=== PATIENT | male | born 1975 | race Caucasian/White ===

== ENCOUNTER → 2020-10-20 09:21 | Outpatient (BNVA) | payer BC, SELFPAY | PROVIDERS: PCP Nurse Practitioner Family; Visit Provider Internal Medicine Endocrinology, Diabetes & Metabolism | DX: E11.65 Type 2 diabetes mellitus with hyperglycemia (principal); E11.22 Type 2 diabetes mellitus with diabetic chronic kidney disease; E11.21 Type 2 diabetes mellitus with diabetic nephropathy; N18.30 Chronic kidney disease, stage 3 unspecified; E78.5 Hyperlipidemia, unspecified; E03.9 Hypothyroidism, unspecified; E66.9 Obesity, unspecified; E55.9 Vitamin D deficiency, unspecified; Z79.4 Long term (current) use of insulin | CPT/HCPCS: 82947 ==

== ENCOUNTER 2020-10-20 10:33 | Outpatient (REF) | payer BC, SELFPAY ==
[2020-10-20 14:25] LABS: Hemoglobin 15.2 g/dl (14.0-18.0); Mean Corpuscular Hemoglobin 29.5 pg (27.0-33.0); Mean Corpuscular Volume 89.1 fL (80-98); Mean Platelet Volume 9.9 fL (9.4-12.4); Platelet Count 192 X10*3/uL (160-400); Red Blood Count 5.16 X10*6/uL (4.60-5.80); Red Cell Distribution Width 13.5 % (11.0-16.0); White Blood Count 4.6 X10*3/uL (4.8-10.8)
[2020-10-20 14:31] LABS: Estimated Average Glucose 203 mg/dL; Hemoglobin A1c % 8.7 %
[2020-10-20 14:42] LABS: Alanine Aminotransferase 40 U/L (0-40); Albumin Level 4.2 g/dL (3.5-5.0); Alkaline Phosphatase 70 U/L (39-117); Anion Gap 12 (12-20); Aspartate Amino Transferase 27 U/L (5-37); Bilirubin Total 0.5 mg/dL (0.0-1.0); Blood Urea Nitrogen 22 mg/dL (9-16); Calcium 8.5 mg/dL (8.4-10.2); Carbon Dioxide 27 mmol/L (22-29); Chloride 103 mmol/L (96-108); Cholesterol 235 mg/dL; Estimated Glomerular Filt Rate 36; Glucose Fasting 204 mg/dL (60-99); HDL Cholesterol 42 mg/dL; LDL Cholesterol Calculated 161 mg/dl; Potassium 4.7 mmol/l (3.3-5.1); Sodium 137 mmol/L (135-145); Total Protein 6.9 g/dL (6.5-8.0); Triglycerides 161 mg/dL
[2020-10-20 15:03] LABS: Thyroid Stimulating Hormone 5.14 uIU/mL (0.32-4.0); Vitamin D 25-OH Total 24.7 ng/mL (>30)
[2020-10-20 15:11] LABS: Creatinine Urine 130.24 mg/dL
[2020-10-20 15:15] LABS: Vitamin B12 680 pg/mL (200-900)
[2020-10-24 14:47] LABS: LDL Cholesterol Direct 175 mg/dL (<100)
== END 2020-10-20 10:34 | disposition home or self-care (01) ==
LOC: HO.10HDL 10:33
PROVIDERS: PCP Nurse Practitioner Family; Visit Provider Internal Medicine Endocrinology, Diabetes & Metabolism
DX: E11.65 Type 2 diabetes mellitus with hyperglycemia (principal); E03.9 Hypothyroidism, unspecified
CPT/HCPCS: 36415; 80053; 80061; 82043; 82306; 82607; 83036; 83721; 84439; 84443; 85027

== ENCOUNTER → 2021-03-22 08:23 | Outpatient (BNVA) | payer OTHER, SELFPAY | PROVIDERS: PCP Nurse Practitioner Family; Visit Provider Internal Medicine Endocrinology, Diabetes & Metabolism | DX: E11.65 Type 2 diabetes mellitus with hyperglycemia (principal); E11.21 Type 2 diabetes mellitus with diabetic nephropathy; E11.22 Type 2 diabetes mellitus with diabetic chronic kidney disease; N18.30 Chronic kidney disease, stage 3 unspecified; Z79.4 Long term (current) use of insulin; E03.8 Other specified hypothyroidism; E06.3 Autoimmune thyroiditis; E04.2 Nontoxic multinodular goiter; E78.5 Hyperlipidemia, unspecified; E55.9 Vitamin D deficiency, unspecified; E66.9 Obesity, unspecified | CPT/HCPCS: 82947 ==

== ENCOUNTER 2021-03-22 08:56 | Outpatient (REF) | payer OTHER, SELFPAY ==
[2021-03-22 10:49] LABS: Alanine Aminotransferase 27 U/L (0-40); Albumin Level 4.4 g/dL (3.5-5.0); Alkaline Phosphatase 76 U/L (39-117); Anion Gap 12 (12-20); Aspartate Amino Transferase 20 U/L (5-37); Bilirubin Total 0.4 mg/dL (0.0-1.0); Blood Urea Nitrogen 23 mg/dL (9-16); Calcium 9.6 mg/dL (8.4-10.2); Carbon Dioxide 28 mmol/L (22-29); Chloride 104 mmol/L (96-108); Cholesterol 211 mg/dL; Estimated Glomerular Filt Rate 34; Glucose Fasting 233 mg/dL (60-99); HDL Cholesterol 39 mg/dL; LDL Cholesterol Calculated 113 mg/dl; Potassium 4.1 mmol/L (3.3-5.1); Sodium 140 mmol/L (135-145); Total Protein 6.9 g/dL (6.5-8.0); Triglycerides 296 mg/dL
[2021-03-22 11:12] LABS: Free T4 (Free Thyroxine) 0.93 ng/dL (0.71-1.85); Thyroid Stimulating Hormone 3.32 uIU/mL (0.32-4.0)
[2021-03-23 05:46] LABS: LDL Cholesterol Direct 129 mg/dL (<100)
== END 2021-03-22 08:57 | disposition home or self-care (01) ==
LOC: HO.10HDL 08:56
PROVIDERS: Visit Provider Internal Medicine Endocrinology, Diabetes & Metabolism
DX: E11.65 Type 2 diabetes mellitus with hyperglycemia (principal)
CPT/HCPCS: 36415; 80053; 80061; 83721; 84439; 84443

== ENCOUNTER 2021-08-15 11:55 | Outpatient (REF) | payer OTHER, SELFPAY ==
[2021-08-15 13:42] LABS: MANUAL DIFF FLAG NO
[2021-08-15 14:00] LABS: Basophils Percent Auto 0.4 % (0-2); Eosinophils Absolute Auto 0.1 X10*3/uL (0.0-0.4); Eosinophils Percent Auto 2.4 % (0-4); Hematocrit 50.2 % (42-52); Hemoglobin 16.5 g/dl (14.0-18.0); Imm Gran Abs Auto 0.01 X10*3/uL (0.00-0.03); Imm Gran Pct Auto 0.2 % (0.0-0.4); Lymphocytes Absolute Auto 1.3 X10*3/uL (1.2-4.9); Lymphocytes Percent Auto 28.1 % (20-40); Mean Corpuscular HGB Conc 32.9 g/dl (31.0-36.0); Mean Corpuscular Hemoglobin 29.3 pg (27.0-33.0); Mean Platelet Volume 10.4 fL (9.4-12.4); Monocytes Absolute Auto 0.4 X10*3/uL (0.1-1.2); Neutrophils Absolute Auto 2.7 X10*3/uL (2.0-8.3); Neutrophils Percent Auto 59.9 % (45-73); Platelet Count 191 X10*3/uL (160-400); Red Blood Count 5.64 X10*6/uL (4.60-5.80); Red Cell Distribution Width 13.3 % (11.0-16.0); White Blood Count 4.6 X10*3/uL (4.8-10.8)
[2021-08-15 14:05] LABS: Appearance Urine CLEAR; Color Urine YELLOW; Glucose Urine UA >=1000 MG/DL (NEG); Leukocyte Esterase Urine NEG (NEG); Nitrite Urine NEG (NEG); Urine Blood NEG (NEG); Urine Ketones NEG (NEG); Urine Protein TRACE MG/DL (NEG-TRACE)
[2021-08-15 14:21] LABS: Creatinine Urine 65.24 mg/dL; Microalbum/Creatinine Ratio Ur 73.5 ug/mg cr; Protein/Creatinine Ratio, Ur 0.25 (<0.2); Total Protein Urine Random 16 mg/dL (<12)
[2021-08-15 14:25] LABS: Alanine Aminotransferase 25 U/L (0-40); Albumin Level 4.4 g/dL (3.5-5.0); Alkaline Phosphatase 71 U/L (39-117); Anion Gap 14 (12-20); Aspartate Amino Transferase 18 U/L (5-37); Bilirubin Total 0.5 mg/dL (0.0-1.0); Blood Urea Nitrogen 21 mg/dL (9-16); Calcium 9.3 mg/dL (8.4-10.2); Carbon Dioxide 26 mmol/L (22-29); Chloride 105 mmol/L (96-108); Cholesterol 185 mg/dL; Estimated Glomerular Filt Rate 35; Glucose Fasting 261 mg/dL (60-99); HDL Cholesterol 48 mg/dL; LDL Cholesterol Calculated 106 mg/dl; Potassium 4.4 mmol/L (3.3-5.1); Sodium 141 mmol/L (135-145); Total Protein 7.1 g/dL (6.5-8.0); Triglycerides 156 mg/dL
[2021-08-15 14:33] LABS: Magnesium 2.2 mg/dL (1.6-2.6); Phosphorus 2.8 mg/dL (2.7-4.5); WBC Urine 0-2 /HPF (0-4)
[2021-08-15 14:34] LABS: RBC Urine 0-2 /HPF (0)
[2021-08-15 14:43] LABS: Renal w Reflex-LAB USE ONLY Order Verified; Vitamin D 25-OH Total 30.8 ng/mL (>30)
[2021-08-15 14:48] LABS: Renal w Reflex Lab Use Only Order verified
[2021-08-16 16:16] LABS: Calcium (PTHI) 9.6 mg/dL (8.6-10.3); PTHI 222 pg/mL (14-64)
== END 2021-08-15 11:56 | disposition home or self-care (01) ==
LOC: HO.HMGCLDS 11:55
PROVIDERS: Internal Medicine Endocrinology, Diabetes & Metabolism; PCP Nurse Practitioner Family; Visit Provider Internal Medicine Nephrology
DX: E11.65 Type 2 diabetes mellitus with hyperglycemia (principal); E11.21 Type 2 diabetes mellitus with diabetic nephropathy; N18.30 Chronic kidney disease, stage 3 unspecified; D64.9 Anemia, unspecified
CPT/HCPCS: 36415; 80053; 80061; 81001; 82043; 82306; 83735; 83970; 84100; 84156; 85025

== ENCOUNTER 2021-11-24 13:54 | Outpatient (REF) | payer OTHER, SELFPAY ==
--- NOTE | ~2021-11-24 | XR_ITS ---
EXAMINATION: SACRUM AND COCCYX. LUMBAR SPINE. CLINICAL INFORMATION: Unspecified fall. COMPARISON: None TECHNIQUE: Lumbar spine 3 views. Sacrum and coccyx 2 views. FINDINGS: SACRUM AND COCCYX: There is normal symmetry of SI joints. No visible fracture or bony abnormality involving the pelvic bones. The sacrum and the coccyx appears intact. The soft tissues are normal. LUMBAR SPINE: There is normal lumbar lordosis doses. The vertebral heights, alignment and disc heights are normal. No visible acute fracture, dislocation or lytic process seen. There is moderate stool seen throughout the colon suggestive of constipation. XR/XR lumbar spine 2-3V IMPRESSION: Unremarkable sacrum and coccyx. Unremarkable lumbar spine exam.
--- NOTE | ~2021-11-24 | XR_ITS ---
EXAMINATION: SACRUM AND COCCYX. LUMBAR SPINE. CLINICAL INFORMATION: Unspecified fall. COMPARISON: None TECHNIQUE: Lumbar spine 3 views. Sacrum and coccyx 2 views. FINDINGS: SACRUM AND COCCYX: There is normal symmetry of SI joints. No visible fracture or bony abnormality involving the pelvic bones. The sacrum and the coccyx appears intact. The soft tissues are normal. LUMBAR SPINE: There is normal lumbar lordosis doses. The vertebral heights, alignment and disc heights are normal. No visible acute fracture, dislocation or lytic process seen. There is moderate stool seen throughout the colon suggestive of constipation. XR/XR sacrum coccyx min 2V IMPRESSION: Unremarkable sacrum and coccyx. Unremarkable lumbar spine exam.
== END 2021-11-24 13:55 | disposition home or self-care (01) ==
LOC: HO.HMGCX 13:54
PROVIDERS: PCP Nurse Practitioner Family; Visit Provider Nurse Practitioner Family
DX: Z91.81 History of falling (principal)
CPT/HCPCS: 72100; 72220

== ENCOUNTER 2021-12-16 12:20 | Outpatient (REF) | payer OTHER, SELFPAY ==
[2021-12-16 13:57] LABS: Appearance Urine CLEAR; Color Urine YELLOW; Glucose Urine UA >=1000 MG/DL (NEG); Leukocyte Esterase Urine NEG (NEG); Nitrite Urine NEG (NEG); UACC Culture Trigger NO; Urine Blood 1+ (NEG); Urine Ketones 15 MG/DL (NEG); Urine Protein 1+ MG/DL (NEG-TRACE)
[2021-12-16 14:00] LABS: Alanine Aminotransferase 31 U/L (0-40); Albumin Level 4.6 g/dL (3.5-5.0); Alkaline Phosphatase 85 U/L (39-117); Anion Gap 16 (12-20); Aspartate Amino Transferase 22 U/L (5-37); Bilirubin Total 0.5 mg/dL (0.0-1.0); Blood Urea Nitrogen 24 mg/dL (9-16); Calcium 9.7 mg/dL (8.4-10.2); Carbon Dioxide 26 mmol/L (22-29); Chloride 101 mmol/L (96-108); Cholesterol 255 mg/dL; Estimated Glomerular Filt Rate 34; Glucose Fasting 214 mg/dL (60-99); HDL Cholesterol 47 mg/dL; LDL Cholesterol Calculated 172 mg/dl; Potassium 4.4 mmol/L (3.3-5.1); Sodium 139 mmol/L (135-145); Total Protein 7.5 g/dL (6.5-8.0); Triglycerides 183 mg/dL
[2021-12-16 14:05] LABS: Estimated Average Glucose 217 mg/dL; Hemoglobin A1c % 9.2 %
[2021-12-16 14:20] LABS: TSH reflex Free T4 5.73 uIU/mL (0.32-4.0)
[2021-12-16 14:23] LABS: Creatinine Urine 103.69 mg/dL; Microalbum/Creatinine Ratio Ur 311.5 ug/mg cr
[2021-12-16 14:25] LABS: WBC Urine 0-2 /HPF (0-4)
[2021-12-16 14:55] LABS: Free T4 (Free Thyroxine) 1.04 ng/dL (0.71-1.85)
== END 2021-12-16 12:21 | disposition home or self-care (01) ==
LOC: HO.HMGCLDS 12:20
PROVIDERS: Visit Provider Nurse Practitioner Family
DX: Z00.00 Encounter for general adult medical examination without abnormal findings (principal); E11.21 Type 2 diabetes mellitus with diabetic nephropathy; E11.22 Type 2 diabetes mellitus with diabetic chronic kidney disease; N18.30 Chronic kidney disease, stage 3 unspecified
CPT/HCPCS: 36415; 80053; 80061; 81001; 82043; 83036; 84439; 84443

== ENCOUNTER → 2022-03-02 07:26 | Outpatient (BNVA) | payer OTHER, SELFPAY | PROVIDERS: PCP Nurse Practitioner Family; Visit Provider Nurse Practitioner Gerontology | DX: E11.65 Type 2 diabetes mellitus with hyperglycemia (principal); E11.21 Type 2 diabetes mellitus with diabetic nephropathy; E11.22 Type 2 diabetes mellitus with diabetic chronic kidney disease; N18.30 Chronic kidney disease, stage 3 unspecified; E03.8 Other specified hypothyroidism; E06.3 Autoimmune thyroiditis; E04.2 Nontoxic multinodular goiter; E78.5 Hyperlipidemia, unspecified; E55.9 Vitamin D deficiency, unspecified; E66.9 Obesity, unspecified; Z79.4 Long term (current) use of insulin; Z68.29 Body mass index [BMI] 29.0-29.9, adult | CPT/HCPCS: 82947 ==

== ENCOUNTER 2022-04-04 08:56 | Outpatient (REF) | payer OTHER, SELFPAY ==
[2022-04-04 12:33] LABS: Free T4 (Free Thyroxine) 0.97 ng/dL (0.71-1.85); Thyroid Stimulating Hormone 3.95 uIU/mL (0.32-4.0)
== END 2022-04-04 08:57 | disposition home or self-care (01) ==
LOC: HO.LAB 08:56
PROVIDERS: Nurse Practitioner Gerontology; PCP Nurse Practitioner Family; Visit Provider Registered Nurse Diabetes Educator
DX: E03.8 Other specified hypothyroidism (principal); E06.3 Autoimmune thyroiditis; E11.21 Type 2 diabetes mellitus with diabetic nephropathy
CPT/HCPCS: 36415; 84439; 84443

== ENCOUNTER 2022-07-04 11:26 | Outpatient (REF) | payer OTHER, SELFPAY ==
[2022-07-04 14:01] LABS: Appearance Urine Clear; Color Urine Yellow; Glucose Urine UA >=1000 mg/dL (Negative); Leukocyte Esterase Urine Negative (Negative); Nitrite Urine Negative (Negative); PH 5.5 (5.0-8.0); Specific Gravity - Urine 1.025 (1.005-1.025); Urine Blood Negative (Negative); Urine Ketones Negative (Negative); Urine Protein Trace mg/dL (Neg-Trace)
[2022-07-04 14:08] LABS: Estimated Average Glucose 194 mg/dL; Hemoglobin A1c % 8.4 %
[2022-07-04 14:18] LABS: Alanine Aminotransferase 24 U/L (0-40); Albumin Level 4.4 g/dL (3.5-5.0); Alkaline Phosphatase 93 U/L (39-117); Anion Gap 16 (12-20); Aspartate Amino Transferase 20 U/L (5-37); Bilirubin Total 0.4 mg/dL (0.0-1.0); Blood Urea Nitrogen 22 mg/dL (9-16); Carbon Dioxide 24 mmol/L (22-29); Chloride 105 mmol/L (96-108); Cholesterol 258 mg/dL; Estimated Glomerular Filt Rate 32; Glucose Fasting 242 mg/dL (60-99); HDL Cholesterol 47 mg/dL; LDL Cholesterol Calculated 181 mg/dl; Potassium 4.3 mmol/L (3.3-5.1); Sodium 141 mmol/L (135-145); Total Protein 7.1 g/dL (6.5-8.0); Triglycerides 150 mg/dL
[2022-07-04 14:40] LABS: TSH reflex Free T4 12.91 uIU/mL (0.32-4.0)
[2022-07-04 14:46] LABS: Bacteria Urine None Seen (None Seen); Hyaline Casts Urine 0-2 /LPF (0-2); RBC Urine 0-2 /HPF (0-2); Squamous Epithelial Cell Urine 0-2 /HPF (0-2); WBC Urine 0-5 /HPF (0-5)
[2022-07-04 15:25] LABS: Free T4 (Free Thyroxine) 0.84 ng/dL (0.71-1.85)
[2022-07-04 16:29] LABS: Creatinine Urine 70.63 mg/dL; Microalbum/Creatinine Ratio Ur 70.7 ug/mg cr
== END 2022-07-04 11:27 | disposition home or self-care (01) ==
LOC: HO.HMGCLDS 11:26
PROVIDERS: PCP Nurse Practitioner Family; Visit Provider Nurse Practitioner Family
DX: E11.65 Type 2 diabetes mellitus with hyperglycemia (principal); E11.22 Type 2 diabetes mellitus with diabetic chronic kidney disease; N18.30 Chronic kidney disease, stage 3 unspecified
CPT/HCPCS: 36415; 80053; 80061; 81001; 81003; 82043; 83036; 84439; 84443

== ENCOUNTER → 2022-08-31 07:01 | Outpatient (REF) | payer OTHER, SELFPAY ==
--- NOTE | 2022-08-31 07:04 | HM_ITS ---
* Total monitoring time 3 days and 23 hours. * Underlying rhythm is sinus. Average rate 84/Min. Range 58 to 130/Min. * Rare supraventricular and ventricular ectopy. No sustained arrhythmias. * No pauses or AV blocks. * Diary entries correlate with sinus rhythm. MTDD
== END ==
LOC: HO.CARD 07:01
PROVIDERS: PCP Nurse Practitioner Family; Visit Provider Nurse Practitioner Family
DX: R00.2 Palpitations (principal)
CPT/HCPCS: 93242

== ENCOUNTER 2022-09-05 09:14 | Outpatient (REF) | payer OTHER, SELFPAY ==
[2022-09-05 09:31] LABS: MANUAL DIFF FLAG NO
[2022-09-05 09:55] LABS: Basophils Percent Auto 0.6 % (0-2); Eosinophils Absolute Auto 0.1 X10*3/uL (0.0-0.4); Eosinophils Percent Auto 2.8 % (0-4); Hematocrit 43.7 % (42.0-52.0); Hemoglobin 14.6 g/dl (14.0-18.0); Imm Gran Abs Auto 0.01 X10*3/uL (0.00-0.03); Imm Gran Pct Auto 0.2 % (0.0-0.4); Lymphocytes Absolute Auto 1.3 X10*3/uL (1.2-4.9); Lymphocytes Percent Auto 26.7 % (20-40); Mean Corpuscular HGB Conc 33.4 g/dl (31.0-36.0); Mean Corpuscular Hemoglobin 29.6 pg (27.0-33.0); Mean Corpuscular Volume 88.5 fL (80.0-98.0); Mean Platelet Volume 10.1 fL (9.4-12.4); Monocytes Absolute Auto 0.4 X10*3/uL (0.1-1.2); Neutrophils Absolute Auto 2.8 x10*3/uL (2.0-8.3); Neutrophils Percent Auto 60.7 % (45-73); Platelet Count 187 X10*3/uL (160-400); Red Blood Count 4.94 X10*6/uL (4.60-5.80); Red Cell Distribution Width 13.5 % (11.0-16.0); White Blood Count 4.7 X10*3/uL (4.8-10.8)
[2022-09-05 10:26] LABS: Albumin Level 4.5 g/dL (3.5-5.0); Anion Gap 15 (12-20); Blood Urea Nitrogen 33 mg/dL (9-16); Calcium 9.4 mg/dL (8.4-10.2); Carbon Dioxide 25 mmol/L (22-29); Chloride 107 mmol/L (96-108); Estimated Glomerular Filt Rate 29; Magnesium 1.8 mg/dL (1.6-2.6); Phosphorus 2.9 mg/dL (2.7-4.5); Potassium 4.1 mmol/L (3.3-5.1); Sodium 143 mmol/L (135-145)
[2022-09-05 10:44] LABS: TSH reflex Free T4 1.36 uIU/mL (0.32-4.0)
[2022-09-05 10:50] LABS: Vitamin D 25-OH Total 23.6 ng/mL (>30)
[2022-09-05 10:52] LABS: Appearance Urine Clear; Color Urine Yellow; Glucose Urine UA 500 mg/dL (Negative); Leukocyte Esterase Urine Negative (Negative); Nitrite Urine Negative (Negative); PH 5.5 (5.0-9.0); Urine Blood Negative (Negative); Urine Ketones Negative (Negative); Urine Protein Negative (Neg-Trace)
[2022-09-05 10:59] LABS: Bacteria Urine None Seen (None Seen); Hyaline Casts Urine 0-2 /LPF (0-2); RBC Urine 0-2 /HPF (0-2); Squamous Epithelial Cell Urine 0-2 /HPF (0-2); WBC Urine 0-5 /HPF (0-5)
[2022-09-05 11:51] LABS: Creatinine Urine 75.66 mg/dL; Protein/Creatinine Ratio, Ur 0.19 (<0.2); Total Protein Urine Random 14 mg/dL (<12)
[2022-09-07 14:57] LABS: PTHI 244 pg/mL (16-77)
== END 2022-09-05 09:15 | disposition home or self-care (01) ==
LOC: HO.LAB 09:14
PROVIDERS: Absent Provider Internal Medicine Nephrology; PCP Nurse Practitioner Family; Visit Provider Nurse Practitioner Family
DX: N18.32 Chronic kidney disease, stage 3b (principal); E03.9 Hypothyroidism, unspecified; E11.21 Type 2 diabetes mellitus with diabetic nephropathy; N25.0 Renal osteodystrophy
CPT/HCPCS: 36415; 80051; 81001; 82040; 82043; 82306; 82310; 82565; 83735; 83970; 84100; 84156; 84443; 84520; 85025; 87086

== ENCOUNTER 2022-09-15 10:11 | Outpatient (REF) | payer OTHER, SELFPAY ==
[2022-09-15 11:25] LABS: MANUAL DIFF FLAG NO
[2022-09-15 11:32] LABS: Basophils Percent Auto 0.9 % (0-2); Eosinophils Absolute Auto 0.1 X10*3/uL (0.0-0.4); Eosinophils Percent Auto 2.6 % (0-4); Hematocrit 42.5 % (42.0-52.0); Hemoglobin 14.1 g/dl (14.0-18.0); Imm Gran Abs Auto 0.01 X10*3/uL (0.00-0.03); Imm Gran Pct Auto 0.2 % (0.0-0.4); Lymphocytes Absolute Auto 1.4 X10*3/uL (1.2-4.9); Lymphocytes Percent Auto 30.1 % (20-40); Mean Corpuscular HGB Conc 33.2 g/dl (31.0-36.0); Mean Corpuscular Volume 90.4 fL (80.0-98.0); Mean Platelet Volume 10.4 fL (9.4-12.4); Monocytes Absolute Auto 0.5 X10*3/uL (0.1-1.2); Monocytes Percent Auto 9.7 % (2-11); Neutrophils Absolute Auto 2.6 x10*3/uL (2.0-8.3); Neutrophils Percent Auto 56.5 % (45-73); Platelet Count 178 X10*3/uL (160-400); Red Cell Distribution Width 13.7 % (11.0-16.0); White Blood Count 4.6 X10*3/uL (4.8-10.8)
[2022-09-15 11:38] LABS: Estimated Average Glucose 197 mg/dL; Hemoglobin A1c % 8.5 %
[2022-09-15 11:52] LABS: Appearance Urine Clear; Color Urine Yellow; Glucose Urine UA >=1000 mg/dL (Negative); Leukocyte Esterase Urine Negative (Negative); Nitrite Urine Negative (Negative); PH 5.5 (5.0-9.0); UMIC TRIGGER UACC YES; Urine Blood Negative (Negative); Urine Ketones Negative (Negative); Urine Protein Negative (Neg-Trace)
[2022-09-15 12:00] LABS: Alanine Aminotransferase 22 U/L (0-40); Albumin Level 4.3 g/dL (3.5-5.0); Alkaline Phosphatase 83 U/L (39-117); Anion Gap 16 (12-20); Aspartate Amino Transferase 20 U/L (5-37); Bilirubin Total 0.4 mg/dL (0.0-1.0); Blood Urea Nitrogen 30 mg/dL (9-16); Calcium 9.1 mg/dL (8.4-10.2); Carbon Dioxide 24 mmol/L (22-29); Chloride 106 mmol/L (96-108); Cholesterol 216 mg/dL; Estimated Glomerular Filt Rate 26; Glucose Fasting 176 mg/dL (60-99); HDL Cholesterol 40 mg/dL; LDL Cholesterol Calculated 135 mg/dl; Potassium 4.5 mmol/L (3.3-5.1); Sodium 141 mmol/L (135-145); Total Protein 6.8 g/dL (6.5-8.0); Triglycerides 208 mg/dL
[2022-09-15 12:07] LABS: TSH reflex Free T4 5.08 uIU/mL (0.32-4.0)
[2022-09-15 12:17] LABS: Bacteria Urine None Seen (None Seen); Hyaline Casts Urine 0-2 /LPF (0-2); RBC Urine 0-2 /HPF (0-2); Squamous Epithelial Cell Urine 0-2 /HPF (0-2); WBC Urine 0-5 /HPF (0-5)
[2022-09-15 12:43] LABS: Free T4 (Free Thyroxine) 0.86 ng/dL (0.71-1.85)
[2022-09-20 12:45] LABS: CK-BB None Detected (None Detected); CK-MB 0 % (<5); CK-MM 100 % (95-100); Creatine Kinase,Total,Serum 147 U/L (44-196)
== END 2022-09-15 10:12 | disposition home or self-care (01) ==
LOC: HO.HMGCLDS 10:11
PROVIDERS: PCP Nurse Practitioner Family; Visit Provider Nurse Practitioner Family
DX: E11.319 Type 2 diabetes mellitus with unspecified diabetic retinopathy without macular edema (principal); E11.65 Type 2 diabetes mellitus with hyperglycemia
CPT/HCPCS: 36415; 80053; 80061; 81001; 82552; 83036; 84439; 84443; 85025

== ENCOUNTER 2022-11-08 11:15 | Outpatient (REF) | payer OTHER, SELFPAY ==
[2022-11-08 13:56] LABS: Appearance Urine Clear; Color Urine Yellow; Glucose Urine UA >=1000 mg/dL (Negative); Leukocyte Esterase Urine Negative (Negative); Nitrite Urine Negative (Negative); PH 5.5 (5.0-9.0); UMIC TRIGGER UACC YES; Urine Blood Negative (Negative); Urine Ketones Trace mg/dL (Negative); Urine Protein Negative (Neg-Trace)
[2022-11-08 13:57] LABS: MANUAL DIFF FLAG NO
[2022-11-08 14:02] LABS: Bacteria Urine None Seen (None Seen); Basophils Percent Auto 0.4 % (0-2); Eosinophils Absolute Auto 0.2 X10*3/uL (0.0-0.4); Eosinophils Percent Auto 3.4 % (0-4); Hematocrit 43.8 % (42.0-52.0); Hemoglobin 14.3 g/dl (14.0-18.0); Hyaline Casts Urine 0-2 /LPF (0-2); Imm Gran Abs Auto 0.01 X10*3/uL (0.00-0.03); Imm Gran Pct Auto 0.2 % (0.0-0.4); Lymphocytes Absolute Auto 1.3 X10*3/uL (1.2-4.9); Lymphocytes Percent Auto 24.4 % (20-40); Mean Corpuscular HGB Conc 32.6 g/dl (31.0-36.0); Mean Corpuscular Hemoglobin 29.9 pg (27.0-33.0); Mean Corpuscular Volume 91.4 fL (80.0-98.0); Monocytes Absolute Auto 0.5 X10*3/uL (0.1-1.2); Monocytes Percent Auto 9.3 % (2-11); Neutrophils Absolute Auto 3.3 x10*3/uL (2.0-8.3); Neutrophils Percent Auto 62.3 % (45-73); Platelet Count 198 X10*3/uL (160-400); RBC Urine 0-2 /HPF (0-2); Red Blood Count 4.79 X10*6/uL (4.60-5.80); Red Cell Distribution Width 13.5 % (11.0-16.0); Squamous Epithelial Cell Urine 0-2 /HPF (0-2); WBC Urine 0-5 /HPF (0-5); White Blood Count 5.4 X10*3/uL (4.8-10.8)
[2022-11-08 14:28] LABS: Estimated Average Glucose 177 mg/dL; Hemoglobin A1c % 7.8 %
[2022-11-08 14:42] LABS: Alanine Aminotransferase 24 U/L (0-40); Albumin Level 4.2 g/dL (3.5-5.0); Alkaline Phosphatase 100 U/L (39-117); Anion Gap 13 (12-20); Aspartate Amino Transferase 17 U/L (5-37); Bilirubin Total 0.4 mg/dL (0.0-1.0); Blood Urea Nitrogen 28 mg/dL (9-16); Calcium 9.3 mg/dL (8.4-10.2); Carbon Dioxide 25 mmol/L (22-29); Chloride 107 mmol/L (96-108); Cholesterol 168 mg/dL; Estimated Glomerular Filt Rate 30; Glucose Fasting 224 mg/dL (60-99); HDL Cholesterol 34 mg/dL; LDL Cholesterol Calculated 97 mg/dl; Potassium 4.7 mmol/L (3.3-5.1); Sodium 140 mmol/L (135-145); Total Protein 6.6 g/dL (6.5-8.0); Triglycerides 188 mg/dL
== END 2022-11-08 11:16 | disposition home or self-care (01) ==
LOC: HO.HMGCLDS 11:15
PROVIDERS: PCP Nurse Practitioner Family; Visit Provider Nurse Practitioner Family
DX: Z00.00 Encounter for general adult medical examination without abnormal findings (principal); E11.21 Type 2 diabetes mellitus with diabetic nephropathy
CPT/HCPCS: 36415; 80053; 80061; 81001; 83036; 84443; 85025

== ENCOUNTER → 2022-11-23 07:56 | Outpatient (BNVA) | payer OTHER, SELFPAY | PROVIDERS: PCP Nurse Practitioner Family; Visit Provider Internal Medicine Endocrinology, Diabetes & Metabolism | DX: E11.65 Type 2 diabetes mellitus with hyperglycemia (principal) | CPT/HCPCS: 82947 ==

== ENCOUNTER → 2023-01-05 08:01 | Outpatient (REF) | payer OTHER, SELFPAY ==
--- NOTE | ~2023-01-05 | NM_ITS ---
Exercise Myocardial perfusion study Indication: Chest pain to evaluate for myocardial ischemia Technique: The patient was brought in for an exercise perfusion study on 01/05/2023. Patient performed exercise as per Alirio protocol and was injected 30 mCi of sestamibi was given intravenously one target HR was achieved. Images were obtained using the SPECT gamma camera interlaced with the gating device. Images were obtained in supine position. Resting perfusion study was performed on 01/10/2023. Patient was administered 30 mCi of sestamibi intravenously at rest. Images were then obtained in supine position. Images obtained with and without CT attenuation. Total DLP 98 mGy-cm. Images were processed with the software and compared side to side in short axis, horizontal long axis and vertical long axis views. Findings: The stress perfusion study showed both attenuated as well as non attenuated images show normal uptake of radiotracer in all segments of LV myocardium. The gated study shows normal LV systolic function with calculated LVEF of 71%. LV cavity is normal in size. The gated study shows normal systolic wall thickening and contraction of all segments. There is no transient ischemic dilation. Resting study shows non attenuated images show normal uptake of radiotracer in all segments of LV myocardium. Gating at rest reveals normal systolic wall motion with visually estimated ejection fraction at greater than 60%. The findings are consistent with normal myocardial perfusion. NM/NM cardiolite stress test Impression: 1. Normal myocardial perfusion 2. Gated LVEF is 71% 3. Transient ischemic dilatation not present Stress EKG is equivocal for ischemia
--- NOTE | 2023-01-05 08:04 | CA_ITS ---
Acquisition Time: 2023-01-05 08:50:50 Total Exercise Time: 00:06:53 Test Indications: CP Medications: SEE H Protocol: ERIKA Max HR: 153 BPM 87% of Pred: 175 BPM Max BP: 154/074 mmHG Max Work Load: 7.7 METS Ecercise stress test using Erika protocol Total of 6 minutes 21 sec. Pt tolerated well Mild SIOB and chest thightness 2/10 non limiting with M ax HR 87 % and METS 7.70. EKG with T inversion in lead 3 and aVF and isolated PVC's during exercise. Chest pressure 2/10 during exercise.with mild SOB. Normotensive response to exercise. Awaiting nuclear images. Tesxt reviewed with Dr. Pisano. Referred By: Broderick Power Overread By: Elaine Holliday NP
--- NOTE | 2023-01-05 08:04 | CA_ITS ---
Transthoracic Echocardiogram Patient (Last, First, Middle): Michele Taylor A Gender: Male Date of : 1975 Age: 47 Procedure Date: 01/05/2023 Procedure Type: Transthoracic Echocardiogram Location: OP Height: 167.64 cm Weight: 83.92 kg BSA: 1.93 m2 Heart Rate: 64 bpm BP: 120 / 68 mmHg [employer]: SB Referring MD: Broderick Power [facility] Symptoms: R00.2 - Palpitations Study Quality: Adequate ECG Rhythm: Sinus Conclusions: - Normal left ventricular cavity size. There is normal left ventricular wall thickness. The left ventricular systolic function is low normal. The visually estimated ejection fraction is between 50-55%. - E/E prime ratio is between 8 and 15 consistent with indeterminate filling pressures. - The basal inferior segment is akinetic. - Normal right ventricular cavity size. There is borderline right ventricular systolic function. - Redcued global longitudinal strain at -15%. Findings Left Ventricle Normal left ventricular cavity size. There is normal left ventricular wall thickness. The left ventricular systolic function is low normal. The visually estimated ejection fraction is between 50-55%. There is evidence of regional wall motion abnormalities. Abnormal diastolic function is noted. Spectral Doppler is indicative of a pseudonormal filling pattern. E/E prime ratio is between 8 and 15 consistent with indeterminate filling pressures. Wall Motion Rest Echo Findings The basal inferior segment is akinetic. Right Ventricle Normal right ventricular cavity size. There is borderline right ventricular systolic function. Atria The left atrium is normal in size. The right atrium is normal in size. Aortic Valve Normal aortic valve structure and function. There is no aortic valve stenosis. There is no aortic valve regurgitation. Mitral Valve Normal mitral valve structure and function. There is no mitral valve regurgitation. There is no mitral valve stenosis. Pulmonic Valve Normal pulmonic valve structure and function. There is trace pulmonic valve regurgitation. Tricuspid Valve Normal tricuspid valve structure and function. There is trace tricuspid valve regurgitation. Tricuspid regurgitation envelope is inadequate for calculation of right ventricular systolic pressure. Normal right atrial pressure. Great Vessels All visible segments of the aorta are normal in size. The visualized portions of the pulmonary artery and branches are normal. Venous The inferior vena cava is normal in size and collapses greater than 50% with inspiration. Pericardium/Pleural There is no evidence of pericardial effusion. Prior Study Comparison No prior study available for comparison. Measurements 2D Linear Measurements IVSd: 0.88 0.6-0.9/0.6-1.0 cm LVIDd: 3.94 3.9-5.3/4.2-5.9 cm LVIDd Index: 2.04 2.4-3.2/2.2-3.1 cm/m2 LVIDs: 2.94 2.0-3.6 cm LVPWd: 0.60 0.7-1.1 cm LA Diam: 3.10 2.7-3.8/3.0-4.0 cm LAIDs Index: 1.61 1.5-2.3 cm/m2 LV Mass: 101.98 67-162/88-224 g LV Mass Index: 52.84 43-95/49-115 g/m2 LVOT Diam: 2.00 3.0+(-)1.3 cm 2D Systolic Function EF 4C: 50.00 >55% EF 2C: 56.00 >55% EF BiP: 54.40 >55% Mitral Valve MV Pk E: 0.92 MV PK A: 0.75 MV Decel Time: 171.00 E/A: 1.20 E'Lateral: 8.59 E'Medial: 7.62 E/E' Med: 12.00 E/E' Lat: 10.70 PHT: 50.00 MVA PHT: 4.40 Decel [place]: 5.37 Aortic Valve AoV Pk Mansoor: 1.06 AoV Pk Grad: 4.00 NADIA: 2.40 LVOT LVOT Pk Mansoor: 0.82 LVOT Mn Mansoor: 0.56 LVOT VTI: 0.20 LVOT Pk Grad: 3.00 LVOT Mn Grad: 1.00 LVOT Diam: 2.00 LVOT Area: 3.14 Diastolic Function MV Pk E: 0.92 MV Pk A: 0.75 E/A: 1.20 E'Medial: 7.62 E/E' Med: 12.00 E' Laterial: 8.59 E/E' Lat: 10.70 Right Ventricle TAPSE (mm): 15.60 TVS' Mansoor: 8.38 Tricuspid Valve RA Press: 8.00 Great Vessels Aorta Sinus of Valsalva: 3.10 2.0-3.5 cm Ao Asc: 3.10 2.1-3.4 cm Ao Arch: 2.90 Pulmonary Veins Pulm Vein S/D 0.90 Pulmonary Valve PV Pk Mansoor: 0.92 Peak PV Grad: 3.00 Updated in Other Vendor System with Status of Final Manohar Pisano MD electronically signed on 01/06/2023 1:30:37 PM with status of Final
== END ==
LOC: HO.CARD 08:01
PROVIDERS: PCP Nurse Practitioner Family; Visit Provider Nurse Practitioner Family
DX: R07.9 Chest pain, unspecified (principal); R00.2 Palpitations
CPT/HCPCS: 78452; 93017; 93306; 93356; A9500

== ENCOUNTER 2023-01-18 10:41 | Outpatient (REF) | payer OTHER, SELFPAY ==
[2023-01-18 13:54] LABS: MANUAL DIFF FLAG NO
[2023-01-18 14:21] LABS: Basophils Percent Auto 0.6 % (0-2); Eosinophils Absolute Auto 0.1 X10*3/uL (0.0-0.4); Eosinophils Percent Auto 2.7 % (0-4); Hematocrit 45.9 % (42.0-52.0); Hemoglobin 14.9 g/dl (14.0-18.0); Imm Gran Abs Auto 0.01 X10*3/uL (0.00-0.03); Imm Gran Pct Auto 0.2 % (0.0-0.4); Lymphocytes Absolute Auto 1.4 X10*3/uL (1.2-4.9); Lymphocytes Percent Auto 26.9 % (20-40); Mean Corpuscular HGB Conc 32.5 g/dl (31.0-36.0); Mean Corpuscular Hemoglobin 30.3 pg (27.0-33.0); Mean Corpuscular Volume 93.3 fL (80.0-98.0); Monocytes Absolute Auto 0.5 X10*3/uL (0.1-1.2); Monocytes Percent Auto 9.7 % (2-11); Neutrophils Absolute Auto 3.1 x10*3/uL (2.0-8.3); Neutrophils Percent Auto 59.9 % (45-73); Platelet Count 188 X10*3/uL (160-400); Red Blood Count 4.92 X10*6/uL (4.60-5.80); Red Cell Distribution Width 13.4 % (11.0-16.0); White Blood Count 5.2 X10*3/uL (4.8-10.8)
[2023-01-18 14:40] LABS: D Dimer High Sensitivity < 150 NG/ML
[2023-01-18 14:42] LABS: Alanine Aminotransferase 24 U/L (0-40); Albumin Level 4.4 g/dL (3.5-5.0); Alkaline Phosphatase 79 U/L (39-117); Anion Gap 14 (12-20); Aspartate Amino Transferase 16 U/L (5-37); Bilirubin Total 0.4 mg/dL (0.0-1.0); Blood Urea Nitrogen 28 mg/dL (9-16); Calcium 9.3 mg/dL (8.4-10.2); Carbon Dioxide 26 mmol/L (22-29); Chloride 106 mmol/L (96-108); Estimated Glomerular Filt Rate 31; Glucose Random 231 mg/dL (60-115); Potassium 4.5 mmol/L (3.3-5.1); Sodium 141 mmol/L (135-145)
[2023-01-18 14:44] LABS: TSH reflex Free T4 7.23 uIU/mL (0.32-4.0)
== END 2023-01-18 10:42 | disposition home or self-care (01) ==
LOC: HO.HMGCLDS 10:41
PROVIDERS: PCP Nurse Practitioner Family; Visit Provider Nurse Practitioner Family
DX: R07.89 Other chest pain (principal); R06.02 Shortness of breath; R53.81 Other malaise; R53.83 Other fatigue; E55.9 Vitamin D deficiency, unspecified
CPT/HCPCS: 36415; 80053; 84439; 84443; 85025; 85379

== ENCOUNTER 2023-01-18 15:14 | Outpatient (REF) | payer OTHER, SELFPAY ==
--- NOTE | ~2023-01-18 | NM_ITS ---
PULMONARY PERFUSION ONLY STUDY: CLINICAL INDICATION: Chest pain. Chest pressure. Shortness of breath. Coughing. PROCEDURE: Following the intravenous administration of 4 millicuries technetium 99m MAA, images of the chest were obtained in multiple projections using a gamma scintiphotographic camera. The radiotracer was injected through right antecubital superficial vein, without complications. COMPARISON: Chest radiograph done on the same day. Chest radiograph: Bilateral clear lung main. PERFUSION IMAGES: No segmental perfusion defects or other perfusion abnormalities are noted. NM/NM pul perfusion IMPRESSION: Based on modified PIOPED 2 criteria, pulmonary thromboembolism is absent.
--- NOTE | ~2023-01-18 | XR_ITS ---
EXAMINATION: XR CHEST CLINICAL INFORMATION: Shortness of breath COMPARISON: None TECHNIQUE: 2 views of the chest were obtained. FINDINGS: No significant abnormality is noted involving the heart, lungs, mediastinum, bony thorax or soft tissues. XR/XR chest 2V IMPRESSION: Unremarkable chest examination.
== END 2023-01-18 15:15 | disposition home or self-care (01) ==
LOC: HO.CT 15:14
PROVIDERS: PCP Nurse Practitioner Family; Visit Provider Nurse Practitioner Family
DX: R07.89 Other chest pain (principal); R06.02 Shortness of breath
CPT/HCPCS: 71046; 78580; A9540

== ENCOUNTER 2023-01-19 08:19 | Outpatient (REF) | payer OTHER, SELFPAY ==
[2023-01-19 09:58] LABS: Hematocrit 45.5 % (42.0-52.0); Hemoglobin 14.9 g/dl (14.0-18.0); Mean Corpuscular HGB Conc 32.7 g/dl (31.0-36.0); Mean Corpuscular Hemoglobin 30.8 pg (27.0-33.0); Mean Corpuscular Volume 94.2 fL (80.0-98.0); Mean Platelet Volume 10.1 fL (9.4-12.4); Platelet Count 184 X10*3/uL (160-400); Red Blood Count 4.83 X10*6/uL (4.60-5.80); Red Cell Distribution Width 13.5 % (11.0-16.0); White Blood Count 5.3 X10*3/uL (4.8-10.8)
[2023-01-19 10:05] LABS: INTERNATIONAL NORM RATIO 0.8 (0.9-1.1); Prothrombin Time 9.3 SEC (10.0-13.1)
[2023-01-19 10:41] LABS: Anion Gap 15 (12-20); Blood Urea Nitrogen 26 mg/dL (9-16); Calcium 9.2 mg/dL (8.4-10.2); Carbon Dioxide 26 mmol/L (22-29); Chloride 106 mmol/L (96-108); Estimated Glomerular Filt Rate 31; Glucose Random 224 mg/dL (60-115); Potassium 4.8 mmol/L (3.3-5.1); Sodium 142 mmol/L (135-145)
[2023-01-19 11:02] LABS: Folate 11.4 ng/mL (> or = 4.0); Vitamin B12 428 pg/mL (200-900)
[2023-01-26 15:48] LABS: Vitamin D 25-OH, D2 <4 ng/mL; Vitamin D 25-OH, D3 33 ng/mL; Vitamin D 25-OH, Total 33 ng/mL (30-100)
== END 2023-01-19 08:20 | disposition home or self-care (01) ==
LOC: HO.LAB 08:19
PROVIDERS: Nurse Practitioner Family; PCP Nurse Practitioner Family; Referring Provider Nurse Practitioner Family; Visit Provider Internal Medicine Cardiovascular Disease
DX: R07.89 Other chest pain (principal); R53.81 Other malaise; R53.83 Other fatigue; E55.9 Vitamin D deficiency, unspecified; R00.2 Palpitations
CPT/HCPCS: 36415; 80048; 82306; 82607; 82746; 85027; 85610

== ENCOUNTER → 2023-02-01 10:37 | Outpatient (REF) | payer OTHER, SELFPAY ==
--- NOTE | 2023-02-01 10:40 | HM_ITS ---
* Total monitoring time 30 days. Wear time 22.8 days. * Underlying rhythm is sinus. Average ventricular rate 77/Min. Range 54 to 120/Min. * Rare PVCs, PACs. * One episode of wide complex rhythm, 7 beats at 105/Min; 17:54hrs. Could be idioventricular rhythm. * Several symptoms documented in diary including racing, chest pressure, tightness, pain, ' hard' heartbeats, shortness of breath, twinge in chest at different times. The generally correlate with sinus rhythm. MTDD
== END ==
LOC: HO.CARD 10:37
PROVIDERS: Visit Provider Internal Medicine Cardiovascular Disease
DX: R00.2 Palpitations (principal)
CPT/HCPCS: 93270

== ENCOUNTER → 2023-02-07 12:39 | Outpatient (REF) | payer OTHER, SELFPAY | LOC: HO.SL 12:39 | PROVIDERS: PCP Nurse Practitioner Family; Visit Provider Nurse Practitioner Family | DX: G47.33 Obstructive sleep apnea (adult) (pediatric) (principal); R06.83 Snoring; R40.0 Somnolence | CPT/HCPCS: 95806 ==

== ENCOUNTER → 2023-02-09 13:29 | Outpatient (BNVA) | payer OTHER, SELFPAY | PROVIDERS: PCP Nurse Practitioner Family; Visit Provider Nurse Practitioner Family | DX: Z13.89 Encounter for screening for other disorder (principal) ==

== ENCOUNTER → 2023-02-22 08:45 | Outpatient (BNVA) | payer OTHER, SELFPAY | PROVIDERS: PCP Nurse Practitioner Family; Visit Provider Internal Medicine Endocrinology, Diabetes & Metabolism | DX: E11.65 Type 2 diabetes mellitus with hyperglycemia (principal) | CPT/HCPCS: 82947; 83036 ==

== ENCOUNTER 2023-03-05 14:37 | Outpatient (REF) | payer OTHER, SELFPAY ==
[2023-03-05 16:28] LABS: Free T4 (Free Thyroxine) 1.16 ng/dL (0.71-1.85); Thyroid Stimulating Hormone 1.17 uIU/mL (0.32-4.0)
== END 2023-03-05 14:38 | disposition home or self-care (01) ==
LOC: HO.LAB 14:37
PROVIDERS: PCP Nurse Practitioner Family; Visit Provider Internal Medicine Endocrinology, Diabetes & Metabolism
DX: E03.9 Hypothyroidism, unspecified (principal)
CPT/HCPCS: 36415; 84439; 84443

== ENCOUNTER → 2023-03-14 11:18 | Outpatient (BNVA) | payer OTHER, SELFPAY | PROVIDERS: PCP Nurse Practitioner Family; Visit Provider Nurse Practitioner Family | DX: R53.81 Other malaise (principal); R53.83 Other fatigue; E55.9 Vitamin D deficiency, unspecified; R07.9 Chest pain, unspecified; Z72.820 Sleep deprivation; R00.2 Palpitations; E66.9 Obesity, unspecified; E11.22 Type 2 diabetes mellitus with diabetic chronic kidney disease; N18.30 Chronic kidney disease, stage 3 unspecified; E11.65 Type 2 diabetes mellitus with hyperglycemia ==

== ENCOUNTER → 2023-03-30 13:28 | Outpatient (BNVA) | payer OTHER, SELFPAY | PROVIDERS: PCP Nurse Practitioner Family; Visit Provider Nurse Practitioner Family | DX: R07.89 Other chest pain (principal) | CPT/HCPCS: 93005 ==

== ENCOUNTER → 2023-04-05 08:56 | Outpatient (BNVA) | payer OTHER, SELFPAY | PROVIDERS: PCP Nurse Practitioner Family; Visit Provider Internal Medicine ==

== ENCOUNTER 2023-05-19 10:21 | Outpatient (REF) | payer OTHER, SELFPAY ==
[2023-05-19 11:25] LABS: Albumin Level 4.2 g/dL (3.5-5.0); Anion Gap 15 (12-20); Blood Urea Nitrogen 29 mg/dL (9-16); Calcium 9.7 mg/dL (8.4-10.2); Carbon Dioxide 24 mmol/L (22-29); Chloride 105 mmol/L (96-108); Estimated Glomerular Filt Rate 28; Phosphorus 3.9 mg/dL (2.7-4.5); Potassium 4.7 mmol/L (3.3-5.1); Sodium 139 mmol/L (135-145)
[2023-05-19 11:41] LABS: Vitamin D 25-OH Total 26.5 ng/mL (>30)
== END 2023-05-19 10:22 | disposition home or self-care (01) ==
LOC: HO.LAB 10:21
PROVIDERS: PCP Nurse Practitioner Family; Visit Provider Internal Medicine Nephrology
DX: E11.22 Type 2 diabetes mellitus with diabetic chronic kidney disease (principal); E11.21 Type 2 diabetes mellitus with diabetic nephropathy; N18.32 Chronic kidney disease, stage 3b; N25.0 Renal osteodystrophy; R82.90 Unspecified abnormal findings in urine
CPT/HCPCS: 36415; 80051; 81001; 82040; 82043; 82306; 82310; 82565; 83970; 84100; 84156; 84520; 87086

== ENCOUNTER 2023-05-23 09:49 | Day surgery (SDC) | payer OTHER, SELFPAY ==
[2023-05-18 10:32] VITALS: BMI 31.8
--- NOTE | 2023-05-21 11:43 | HO.ANESPROP2 ---
Documented by User: Maria Antonia Brito NP 05/21/23 11:52 HPI - Anesthesia Eval Consult details Narrative: 48yo M for Colonoscopy Recent cardiac w/u for chest pressure without significant cardiac abnormalities. YISEL diagnosis new with CPAP [facility] Active Problems Active Problems: All Active Problems (Updated 04/24/23 @ 12:30 by Broderick Power [facility]) Pressure in chest (Acute) YISEL on CPAP (Acute) Allergic rhinitis (Acute) PVCs (premature ventricular contractions) (Acute) S/P cardiac catheterization (Acute) SOB (shortness of breath) on exertion (Acute) Chest discomfort (Acute) Snoring (Acute) Daytime sleepiness (Acute) Chest pain on exertion (Acute) Poor sleep (Acute) Palpitations (Acute) Lower back pain (Acute) Screening for colon cancer (Acute) Hypothyroid (Acute) Allergies (Acute) Diabetic retinopathy (Acute) Motion sickness (Acute) Microscopic hematuria (Acute) Fall (Acute) Physical exam (Acute) Bad taste in mouth (Acute) Acute sinusitis (Acute) Right otitis media (Acute) Malaise and fatigue (Acute) Obesity (BMI 30-39.9) (Acute) Vitamin D deficiency (Acute) Dyslipidemia (Acute) Non-toxic multinodular goiter (Acute) Hypothyroid (Acute) CKD stage 3 due to type 2 diabetes mellitus (Acute) Diabetic nephropathy associated with type 2 diabetes mellitus (Acute) [facility] (current) use of insulin (Acute) Diabetes type 2, uncontrolled (Acute) Past Medical History Medical History (Updated 04/24/23 @ 12:30 by Broderick Power [facility]) Allergic rhinitis CKD stage 3 due to type 2 diabetes mellitus COVID-19 virus infection Diabetes type 2, uncontrolled Diabetic nephropathy associated with type 2 diabetes mellitus Dyslipidemia Hypothyroid [facility] (current) use of insulin Malaise and fatigue Non-toxic multinodular goiter Obesity (BMI 30-39.9) YISEL on CPAP Vitamin D deficiency Family History Family History Father Diabetes mellitus Diverticulitis Colitis Overweight Kidney problem Mental health disorder Heart disease Mother Diabetes mellitus Thyroid disease History of kidney cancer Liver problem Obese Psoriasis Sleep apnea Brother No problems noted. Paternal Grandmother Mental health disorder Surgical History Surgical History Hx of coronary angiogram Lazy eye Sutured skin wound Social History Social History Housing: House Alcohol intake: current Alcohol intake frequency: holidays/special occasions only Patient Tobacco Use Status: Never used Tobacco e-Cigarette/Vaping Use: Never Used Second Hand Smoke Exposure: No (not very often ) Use of substances other than those prescribed or required for medical reasons: No Are you DNR?: No Advance Directives: No Advance Directives Information Provided: Yes service: No Current occupational status: employed Current occupation: [employer] Cognitive needs: No Hearing needs: No Vision needs: No Meds Allergies Allergy/AdvReac Type Severity Reaction Status Date / Time raking leaves Allergy Unknown gets itchy Verified 04/24/23 10:58 (mold?) Home Medications Medication Instructions Recorded Confirmed Last Taken Type calcitriol 0.25 mcg capsule 0.25 mcg PO Q OTHER DAY 10/19/20 05/18/23 Unknown History cholecalciferol (vitamin D3) 125 125 mcg PO DAILY 10/19/20 05/18/23 Unknown History mcg (5,000 unit) capsule flu vac [id number] 36mos up(PF) 60 ml IM 10/19/20 03/30/23 Unknown History mcg (15 mcg x4)/0.5 mL IM syringe cetirizine 10 mg tablet (Zyrtec) 10 mg PO DAILY PRN Allergy Symptoms 03/11/21 05/18/23 Unknown History dapagliflozin propanediol 10 mg 10 mg PO DAILY 11/23/22 05/18/23 Unknown History tablet (Farxiga) atorvastatin 40 mg tablet 20 mg PO DAILY 12/25/22 05/18/23 Unknown History Exam Exam Date and Time: May 21, 2023 1143 Height,Weight and Vital Signs: Height 5 ft 6 in Weight 89.358 kg Pertinent Lab Results Pertinent Lab Results: Laboratory Tests 01/19/23 05/19/23 09:31 10:34 WBC 5.3 Hgb 14.9 Hct 45.5 Plt Count 184 Sodium 139 Potassium 4.7 Chloride 105 Carbon Dioxide 24 BUN 29 H Creatinine 2.52 H Narrative Narrative: EKG 03/2023 normal sinus rhythm, no acute ST or T-wave abnormalities, rate 86 03/2023 cardiology office visit. F/U after testing for chest pressure/palps. pulmonary perfusion scan on 01/18/2023 which showed no PE.? He had an echocardiogram 01/05/2023 showing EF 50-55%, basal inferior akinetic followed by? Nuclear stress test done 01/05/2023 with mild chest tightness during exercise, borderline EKG change and normal myocardial perfusion imaging.? EKGs showed no acute ST or T-wave abnormalities, sinus rhythm.? On prior visit he was started on low-dose metoprolol and continued on atorvastatin 20 mg daily.? He then underwent a cardiac catheterization on 01/30/2023 showing only minimal irregularities. Assessment and Plan Assessment Anesthesia Assessment: Chart Reviewed Documented by User: Garcia Grossman MD 05/23/23 10:35 [facility] Past Medical History Medical History (Updated 04/24/23 @ 12:30 by Broderick Power, [facility]) Allergic rhinitis CKD stage 3 due to type 2 diabetes mellitus COVID-19 virus infection Diabetes type 2, uncontrolled Diabetic nephropathy associated with type 2 diabetes mellitus Dyslipidemia Hypothyroid [facility] (current) use of insulin Malaise and fatigue Non-toxic multinodular goiter Obesity (BMI 30-39.9) YISEL on CPAP Vitamin D deficiency Family History Family History Father Diabetes mellitus Diverticulitis Colitis Overweight Kidney problem Mental health disorder Heart disease Mother Diabetes mellitus Thyroid disease History of kidney cancer Liver problem Obese Psoriasis Sleep apnea Brother No problems noted. Paternal Grandmother Mental health disorder Family history of problems with anesthesia: No Surgical History Surgical History Hx of coronary angiogram Lazy eye Sutured skin wound History of Problems with Anesthesia: No Social History Social History Housing: House Alcohol intake: current Alcohol intake frequency: holidays/special occasions only Patient Tobacco Use Status: Never used Tobacco e-Cigarette/Vaping Use: Never Used Second Hand Smoke Exposure: No (not very often ) Use of substances other than those prescribed or required for medical reasons: No Are you DNR?: No Advance Directives: No Advance Directives Information Provided: Yes service: No Current occupational status: employed 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 Cognitive needs: No Hearing needs: No Vision needs: No Meds Allergies Allergy/AdvReac Type Severity Reaction Status Date / Time raking leaves Allergy Unknown gets itchy Verified 04/24/23 10:58 (mold?) Home Medications Medication Instructions Recorded Confirmed Last Taken Type calcitriol 0.25 mcg capsule 0.25 mcg PO Q OTHER DAY 10/19/20 05/18/23 Unknown History cholecalciferol (vitamin D3) 125 125 mcg PO DAILY 10/19/20 05/18/23 Unknown History mcg (5,000 unit) capsule flu vac [id number] 36mos up(PF) 60 ml IM 10/19/20 03/30/23 Unknown History mcg (15 mcg x4)/0.5 mL IM syringe cetirizine 10 mg tablet (Zyrtec) 10 mg PO DAILY PRN Allergy Symptoms 03/11/21 05/18/23 Unknown History dapagliflozin propanediol 10 mg 10 mg PO DAILY 11/23/22 05/18/23 Unknown History tablet (Farxiga) atorvastatin 40 mg tablet 20 mg PO DAILY 12/25/22 05/18/23 Unknown History Exam Airway Mallampati Class: II TM Dist: >3cm Neck ROM: Limited Heart: rrr Lungs: cta Assessment and Plan Assessment Anesthesia Assessment: Anesthesia Plan Discussed Final Anesthetic Review Family History of Problems with Anesthesia: No History of Problems with Anesthesia: No NPO: Yes ASA Class: III Final Preanesthetic Review: No Changes in Pt Med Stat, Meds/Allgs Chart Reviewed, Consent Obtained/Reviewed and Anes Risks/Benef Reviewed Patient Risk: Intermediate Procedure Risk: Low Anesthetic Plan Anesthetic Plan: MAC: and Agree w/ Assess. and Plan Disposition: Standard PACU
[2023-05-23 10:09] VITALS: BP 110/80; PULSE 98; RESP 16; TEMP 37.1; O2SAT 95
--- NOTE | 2023-05-23 11:00 | MHC.SHP ---
Pre-Procedural Eval Section A Date of Service: 05/23/23 Section B Chief Complaint: screening Details of Present Illness: dad with unknown types of colon problems Relevant Family History (Specify if Yes): Yes Relevant Social History: None Present Medications: see Short Stay Collaborative assessment Medical History: Significant History (Allergic rhinitis CKD stage 3 due to type 2 diabetes mellitus COVID-19 virus infection Diabetes type 2, uncontrolled Diabetic nephropathy associated with type 2 diabetes mellitus Dyslipidemia Hypothyroid [employer] (current) use of insulin Malaise and fatigue Non-toxic multinodular goiter Obesity (BM) History of Previous Operations: Relevant previous surgery/procedure and date(s) (Hx of coronary angiogram Lazy eye Sutured skin wound) Allergies: Allergies Allergy/AdvReac Type Severity Reaction Status Date / Time raking leaves Allergy Unknown gets itchy Verified 04/24/23 10:58 (mold?) Review of Systems Sugical H&P ROS: Negative: Constitution, Cardiovascular, Respiratory, Neurological, Psychiatric, Hem-Onc, Allergic/Immunologic, Gastrointestinal, Genitourinary, Musculoskeletal, Integumentary, Endocrine and Eyes/Ears/Nose/Throat Exam Surgical H&P Exam: Normal: HEENT, Normal: Heart, Normal: Lungs, Normal: Extremities, Normal: Abdomen, Normal: Skin and Normal: Neurological Plan Diagnosis/Plan: Unchanged I have reviewed the history and physical and performed a pertinent physical examination on my patient. No changes have occurred unless specified. Time Spent With Patient Time: Total time managing care of this patient today ____ minutes.
--- NOTE | 2023-05-23 11:02 | W.PM.OPN ---
Operative Note Operative Note Date of Service: 05/23/23 Narrative: Operative Information Procedure Description: Colonoscopy Indication: screening Anesthesia: MAC COLONOSCOPY Instrument: Olympus variable stiffness ADULT scope 190L Colonoscopy Monitoring: Vital signs and clinical assessment, continuous EKG monitoring, Pulse oximetry, Carbon Dioxide monitoring and blood pressure monitoring were done throughout the procedure. Colon withdrawal time was 10 minutes. Procedure: The patient was placed in the left lateral decubitis position and pre-procedure medications were administered. After a digital rectal examination of the ano-rectum, the video colonoscope was inserted into the rectum and advanced through the colon to the cecum/TI. The colonoscope was slowly withdrawn in a retrograde panoramic fashion and the colon mucosa was carefully examined including a retroflexed view of the rectum. Findings and interventions are described below. Procedure Difficulty: easy Findings: Terminal Ileum-normal Cecum:normal Ascending Colon: normal Transverse Colon -normal Descending Colon:normal Sigmoid Colon: normal Rectum: Retroflexion with small internal hemorrhoids, grade I Anorectum - normal Colon preparation: [place] Bowel Preparation Scale Right colon; 2 Transverse colon: 2 Left colon; 2 (0 = Unprepared colon segment with mucosa not seen due to solid stool that cannot be cleared. 1 = Portion of mucosa of the colon segment seen, but other areas of the colon segment not well seen due to staining, residual stool and/or opaque liquid. 2 = Minor amount of residual staining, small fragments of stool and/or opaque liquid, but mucosa of colon segment seen well. 3 = Entire mucosa of colon segment seen well with no residual staining, small fragments of stool or opaque liquid) Impression and Post Procedure Diagnosis: internal hemorrhoids Plan: High fiber diet leaflet Avoid straining at stool, epsom salts and sitz bath, anusol supps or cream Repeat Colonoscopy in 10 years or earlier if clinically indicated Above findings were reviewed with the patient and relevant handouts were provided if indicated.
[2023-05-23 11:27] VITALS: BP 92/49; PULSE 87; RESP 16; TEMP 36.4; O2SAT 97
[2023-05-23 11:42] VITALS: BP 110/69; PULSE 90; RESP 18; TEMP 36.4; O2SAT 96
[2023-05-23 11:57] VITALS: BP 130/88; PULSE 81; RESP 18; TEMP 36.4; O2SAT 97
== END 2023-05-23 12:24 | disposition home or self-care (01) ==
PROVIDERS: PCP Nurse Practitioner Family; Visit Provider Internal Medicine Gastroenterology
PROC: 0DJD8ZZ Inspection of Lower Intestinal Tract, Via Natural or Artificial Opening Endoscopic (ICD-10-PCS; CPT 45378; principal; 2023-05-23 11:30)
DX: Z12.11 Encounter for screening for malignant neoplasm of colon (principal); K64.0 First degree hemorrhoids; E11.22 Type 2 diabetes mellitus with diabetic chronic kidney disease; N18.30 Chronic kidney disease, stage 3 unspecified; Z79.4 Long term (current) use of insulin
CPT/HCPCS: 45378

== ENCOUNTER → 2023-05-24 09:18 | Outpatient (BNVA) | payer OTHER, SELFPAY | PROVIDERS: PCP Nurse Practitioner Family; Visit Provider Internal Medicine Endocrinology, Diabetes & Metabolism | DX: E11.65 Type 2 diabetes mellitus with hyperglycemia (principal); E11.22 Type 2 diabetes mellitus with diabetic chronic kidney disease; N18.32 Chronic kidney disease, stage 3b; E03.8 Other specified hypothyroidism; E06.3 Autoimmune thyroiditis; Z79.4 Long term (current) use of insulin; Z79.899 Other long term (current) drug therapy | CPT/HCPCS: 82947; 83036 ==

== ENCOUNTER 2023-06-04 09:24 | Outpatient (AMB) | payer OTHER, SELFPAY ==
--- NOTE | 2023-06-04 09:25 | A.OFFVIS_ITS ---
Intake Vital Signs 06/04/23 09:38 Height 5 ft 6 in Weight 199 lb BMI 32.1 BP 110/53 L Blood Pressure Location Lt brachial Position Sitting Pulse 78 Intake Visit Reasons: S/p colon- Gooden Intake Note: Patient follow up for Colonoscopy results. Patient denies any GI issues. 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 Required: No Accompanied by: Self / Same As Patient Allergies raking leaves Allergy (Unknown, Verified 06/04/23 09:34) gets itchy (mold?) Medication List - Last Reconciled 06/04/23 by Radha Dickinson PA-C albuterol sulfate 90 mcg/actuation 2 puffs inhalation ONCE PRN atorvastatin 20 mg PO DAILY calcitriol 0.25 mcg PO Q OTHER DAY cetirizine (Zyrtec) 10 mg PO DAILY PRN cholecalciferol (vitamin D3) 125 mcg PO DAILY citalopram 20 mg PO DAILY 90 days dapagliflozin propanediol (Farxiga) 10 mg PO DAILY flash glucose scanning reader (Advanced Ballistic ConceptsStyle Yaz 2 [place]) As directed flash glucose sensor (FreeStyle Yaz 2 Sensor kit) As directed every 2 weeks insulin glargine (Lantus Solostar U-100 Insulin) 16 units (0.16 mL) subcut BEDTIME insulin lispro-aabc (Lyumjev KwikPen U-100 Insulin) 16 units (0.16 mL) subcut TID insulin pump cart,auto,BT-cntr (Omnipod 5 G6 Intro Kit (Gen 5) subcutaneous cartridge with controller) As directed insulin pump cart,automated,BT (Omnipod 5 G6 Pods (Gen 5) subcutaneous cartridge) As directed levothyroxine 112 mcg PO QAM 90 days losartan 50 mg (2 x 25 mg) PO DAILY metoprolol succinate ER (Toprol XL) 25 mg PO DAILY 90 days pen needle, diabetic 6 times a day HPI HPI Comments History of Present Illness Details A 48 y/o male follows up after index screening colonoscopy- He did very well- no complaints- GI or general. 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 Paternal Grandmother Mental health disorder Social History Housing: House Alcohol intake: current Alcohol intake frequency: holidays/special occasions only Patient Tobacco Use Status: Never used Tobacco e-Cigarette/Vaping Use: Never Used Second Hand Smoke Exposure: No (not very often ) service: No Current occupational status: employed Current occupation: [employer] Cognitive needs: No Hearing needs: No Vision needs: No Review of Systems Const All systems reviewed & are unremarkable except as noted in HPI and below Physical Exam Vital Signs: Last Vital Signs Pulse 78 06/04/23 09:38 BP 110/53 L 06/04/23 09:38 BMI result Body Mass Index 32.1 Const General: cooperative, healthy appearing, comfortable and no acute distress Psych Appearance: grossly normal and well kempt Mental Status: mental status grossly normal Speech and movement: Normal speech and movement present Affect: normal affect Attitude: cooperative Thought process: Normal thought process present Thought content: Normal thought content present Insight: Good insight present (Psych) Judgement: Good judgement present (Psych) Results Reviewed Results Reviewed: Impression and Post Procedure Diagnosis: internal hemorrhoids Plan: High fiber diet leaflet Avoid straining at stool, epsom salts and sitz bath, anusol supps or cream Repeat Colonoscopy in 10 years or earlier if clinically indicated Assessment & Plan Assessment & Plan (1) Internal hemorrhoids: Code(s): K64.8 - Other hemorrhoids Plan: HFD Avoid straining repeat 10 years sooner if indicated. Coding Level of Care Code Est Pt Level 3 (28200) Diagnoses Internal hemorrhoids K64.8 Time Spent (min) 20
[2023-06-04 09:38] VITALS: BP 110/53; PULSE 78; BMI 32.1
== END 2023-06-04 11:03 | disposition home or self-care (01) ==
PROVIDERS: PCP Nurse Practitioner Family; Visit Provider Physician Assistant
DX: K64.8 Other hemorrhoids (principal)
CPT/HCPCS: 99213

== ENCOUNTER → 2023-06-04 09:24 | Outpatient (BNVA) | payer OTHER, SELFPAY | PROVIDERS: PCP Nurse Practitioner Family; Visit Provider Physician Assistant ==

== ENCOUNTER 2023-06-11 09:19 | Outpatient (REF) | payer OTHER, SELFPAY ==
--- NOTE | 2023-06-11 10:22 | PFT_ITS ---
Forced vital capacity 75%, FEV1 83%, FEV1 over FVC ratio was 87. FEF 25/75 106% and MVV 81%. Post bronchodilator therapy, there is no change. Total lung capacity 81%. Residual volume 87%. Diffusion capacity 80%. CONCLUSION: Normal pulmonary function test. There is no evidence of any obstructive or restrictive pulmonary disorder. Also, no response to bronchodilator therapy. MD MIRNA Evans/VALENTINAL / [phone]
== END 2023-06-11 09:20 | disposition home or self-care (01) ==
LOC: HO.RESP 09:19
PROVIDERS: PCP Nurse Practitioner Family; Visit Provider Internal Medicine
DX: R06.02 Shortness of breath (principal); R07.89 Other chest pain
CPT/HCPCS: 94010; 94727; 94729

== ENCOUNTER 2023-06-11 10:11 | Outpatient (AMB) | payer OTHER, SELFPAY ==
--- NOTE | 2023-06-11 10:16 | MHC.OFFVIS ---
Intake Vital Signs 06/11/23 10:17 Height 5 ft 6 in Weight 199 lb 8.293 oz BMI 32.2 BP 112/78 Blood Pressure Location Lt brachial Position Sitting Pulse 82 Pulse Source Pulse Oximeter Pulse Oximetry (%) 99 Oxygen Delivery Method Room Air Intake Visit Reasons: Same day PFT Intake Note: Pt reports that the CPAP is helping but experiences shortness of breath on exertion. He feels pressure on his chest when he bends over and occasionally on exertion. Advisory Services Associate Required: No Allergies environmental allergies Allergy (Unknown, Verified 06/11/23 10:48) Itching Medication List - Last Reconciled 06/11/23 by Stephanie Romero MD albuterol sulfate 90 mcg/actuation 2 puffs inhalation ONCE PRN atorvastatin 20 mg PO DAILY calcitriol 0.25 mcg PO Q OTHER DAY cetirizine (Zyrtec) 10 mg PO DAILY PRN cholecalciferol (vitamin D3) 125 mcg PO DAILY citalopram 20 mg PO DAILY 90 days dapagliflozin propanediol (Farxiga) 10 mg PO DAILY flash glucose scanning reader (FreeStyle Yaz 2 [place]) As directed flash glucose sensor (FreeStyle Yaz 2 Sensor kit) As directed every 2 weeks insulin glargine (Lantus Solostar U-100 Insulin) 16 units (0.16 mL) subcut BEDTIME insulin lispro-aabc (Lyumjev KwikPen U-100 Insulin) 16 units (0.16 mL) subcut TID insulin pump cart,auto,BT-cntr (Omnipod 5 G6 Intro Kit (Gen 5) subcutaneous cartridge with controller) As directed insulin pump cart,automated,BT (Omnipod 5 G6 Pods (Gen 5) subcutaneous cartridge) As directed levothyroxine 112 mcg PO QAM 90 days losartan 50 mg (2 x 25 mg) PO DAILY metoprolol succinate ER (Toprol XL) 25 mg PO DAILY 90 days pen needle, diabetic 6 times a day Do you need a note to return to daycare/school/sports/work: No HPI Same day PFT HPI Details This 48 years old gentleman is here for follow-up. He still has mild shortness of breath if he exerts, like walking fast or climbing a flight of stairs. But he has no significant cough or wheezing. He has not required to use albuterol at all. He still has mild nasal congestion. He is being treated for allergic rhinitis with the, allergy shots , once a month, by Dr. Talon Cueva. He remains moderately obese. He is a known case of mild obstructive sleep apnea and is being treated with CPAP . Follows with [facility]. 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 Cognitive needs: No Hearing needs: No Vision needs: No Review of Systems Const All systems reviewed & are unremarkable except as noted in HPI and below Eyes Reports no additional complaints ENT Reports nasal congestion (Chronic intermittent) Card Reports chest pain (Intermittent tight feeling in the chest) Resp Reports as per HPI GI Reports no additional complaints Reports no additional complaints Musc Reports no additional complaints Skin/Breast Reports system reviewed and no additional complaints, except as documented Neuro Reports no additional complaints Psych Reports depression (Being treated with med) Endo Reports other (Insulin-dependent diabetes mellitus) Physical Exam Vital Signs: Last Vital Signs Pulse 82 06/11/23 10:17 BP 112/78 06/11/23 10:17 Pulse Ox 99 06/11/23 10:17 Oxygen Delivery Method Room Air 06/11/23 10:17 BMI result Body Mass Index 32.2 Const General: healthy appearing, comfortable, no acute distress, alert and awake Orientation/consciousness: patient oriented x3 HEENT Head: Yes normal to inspection General nose exam: No nasal polyps present and No nasal discharge present Face and sinus: Yes sinuses nontender Mouth: oropharynx normal Throat: Yes posterior oropharynx normal Eyes General: appearance normal, both eyes and all related structures Neck Neck: Yes normal visual inspection, Yes no lymphadenopathy, Yes trachea midline and Yes no JVD Thyroid: Thyroid normal Chest Chest palpation & inspection: normal inspection of the chest, normal palpation of entire chest wall and no tenderness Resp Effort & Inspection: normal respiratory effort Auscultation: clear to auscultation bilaterally, no rhonchi and no wheezes Cardio Palpation: normal PMI Rate: regular rate Rhythm: regular rhythm Heart sounds: no gallops and no murmurs Peripheral pulses: Peripheral pulses 2+ throughout GI Palpation (GI): Soft to palpation, nontender, No hepatosplenomegaly present and no masses Auscultation: normal bowel sounds Back/Spine/Pelvis Thoracic/Lumbar Spine: thoracic and lumbar spine normal to inspection Skin General skin exam: no rashes or lesions noted Neuro General: patient oriented x3 and no focal motor deficits Cranial nerves: Yes CN's II-XII intact bilaterally Extrem General: Yes normal to inspection, Yes no clubbing, cyanosis or edema and Yes no calf tenderness Psych Appearance: grossly normal and well kempt Speech and movement: Normal speech and movement present Results Reviewed Results Reviewed: Pulmonary function test : NO EVIDENCE OF OBSTRUCTIVE AIRWAY DISORDER. NO RESPONSE TO BD. CHALLENGE. FVC, SLIGHTLY DECREASED, BUT TLC AND OR WE ARE NORMAL. Assessment & Plan Assessment & Plan (1) Allergic rhinitis: Comment: THIS GENTLEMAN HAS CHRONIC ALLERGIC RHINITIS WITH POSSIBLE ALLERGIES OF THE UPPER AIRWAYS, FOR MANY YEARS. HE REPORTS THAT HE IS ON IMMUNOTHERAPY , ( GETTING IMMUNOTHERAPY SHOTS EVERY MONTH AT DR. KAUFMAN,S OFFICE ) , ADVISED TO CONTINUE AND ALSO MAY USE OTC ANTIHISTAMINIC SUCH CLARITIN 10 MG P.R.N.. Code(s): J30.9 - Allergic rhinitis, unspecified (2) SOB (shortness of breath) on exertion: Comment: SHORTNESS OF BREATH ON EXERTION IS NONSPECIFIC, MOST LIKELY RELATED TO HIS OBESITY AND SOME DECONDITIONING. PATIENT EXPLAINED AND ADVISED THAT HE SHOULD TRY TO LOSE SOME WEIGHT. THE USE OF BRONCHODILATOR INHALERS WOULD NOT BE HELPFUL. Code(s): R06.02 - Shortness of breath (3) YISEL on CPAP: Comment: Mild to moderate degree of sleep apnea. The AHI was 15/hr and oxygen rashmi was 82%. The patient has been started on CPAP therapy and he is being followed by the Sleep Medicine Service. Code(s): G47.33 - Obstructive sleep apnea (adult) (pediatric); Z99.89 - Dependence on other enabling machines and devices Coding Level of Care Code Est Pt Level 3 (28408) Diagnoses Allergic rhinitis J30.9 SOB (shortness of breath) on exertion R06.02 YISEL on CPAP G47.33; Z99.89
[2023-06-11 10:17] VITALS: BP 112/78; PULSE 82; O2SAT 99; BMI 32.2
== END 2023-06-11 12:51 | disposition home or self-care (01) ==
PROVIDERS: PCP Nurse Practitioner Family; Visit Provider Internal Medicine
DX: R06.02 Shortness of breath (principal); G47.33 Obstructive sleep apnea (adult) (pediatric); Z99.89 Dependence on other enabling machines and devices
CPT/HCPCS: 94060; 94727; 94729; 99213

== ENCOUNTER 2023-06-18 07:56 | Outpatient (AMB) | payer OTHER, SELFPAY ==
--- NOTE | 2023-06-18 08:23 | MHC.AMDMED ---
Intake Intake Visit Reasons: dm2/interested in pump Senior Business Manager Required: No Accompanied by: Self / Same As Patient Allergies environmental allergies Allergy (Unknown, Verified 06/11/23 10:48) Itching HPI Comprehensive Diabetes Asmnt Most Recent Diabetes Results: Microalb/Creat Ratio 13.6 ug/mg cr 05/19/23 Creatinine 2.52 mg/dL (0.5-1.4) H 05/19/23 Blood Urea Nitrogen 29 mg/dL (9-16) H 05/19/23 Sodium 139 mmol/L (135-145) 05/19/23 Potassium 4.7 mmol/L (3.3-5.1) 05/19/23 Chloride 105 mmol/L (96-108) 05/19/23 Carbon Dioxide 24 mmol/L (22-29) 05/19/23 Calcium 9.7 mg/dL (8.4-10.2) 05/19/23 Albumin 4.2 g/dL (3.5-5.0) 05/19/23 PFSH Medical History Allergic rhinitis CKD stage 3 due to type 2 diabetes mellitus COVID-19 virus infection Diabetes type 2, uncontrolled Diabetic nephropathy associated with type 2 diabetes mellitus Dyslipidemia 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 Cognitive needs: No Hearing needs: No Vision needs: No Assessment & Plan Assessment & Plan (1) CKD stage 3 due to type 2 diabetes mellitus: Code(s): E11.22 - Type 2 diabetes mellitus with diabetic chronic kidney disease; N18.30 - Chronic kidney disease, stage 3 unspecified Plan: Personal Continuous Glucose Monitor: Patient did not receive Dexcom G6 or Omnipod 5 insulin pump We will re-initiate order for both pump and Dexcom Patient uses insulin to carb ratio of 1-5 Correction factor to 1-10 Corrects to 120 mg/dL Patient's last A1c 9% on 05/24/2023 Patients CGM information reviewed Reviewed patient's sensor data: Hypoglycemia: ? 0 % Hyperglycemia:? 67% Time in Range:? 33% Average glucose for the last 2 weeks?202 mg/dL Encourage patient to increase scanning of Yaz 2 sensors, there is limited data due to patient not scanning frequently enough Patient reports he has had some medical issues which have interfered with his diabetes care recently Encourage patient to practice with ratios in anticipation for insulin pump therapy Patient agreed to plan Reviewed how to interpret trend arrows Reminded patient that to check finger sticks if symptoms do not match sensor reading. Discussed lag time between finger stick and sensor data.? Patient able to insert sensor independently at home without issue.? Coding Level of Care Code Est Pt Level 1 (93818) Diagnoses CKD stage 3 due to type 2 diabetes mellitus E11.22; N18.30
== END 2023-06-18 11:05 | disposition home or self-care (01) ==
PROVIDERS: PCP Nurse Practitioner Family; Visit Provider Registered Nurse Diabetes Educator
DX: E11.22 Type 2 diabetes mellitus with diabetic chronic kidney disease (principal); N18.30 Chronic kidney disease, stage 3 unspecified
CPT/HCPCS: 99211

== ENCOUNTER → 2023-06-18 07:56 | Outpatient (BNVA) | payer OTHER, SELFPAY | PROVIDERS: PCP Nurse Practitioner Family; Visit Provider Registered Nurse Diabetes Educator ==

== ENCOUNTER 2023-07-19 07:56 | Outpatient (AMB) | payer OTHER, SELFPAY ==
--- NOTE | 2023-07-19 08:36 | A.OFFVIS_ITS ---
Intake Intake Visit Reasons: 2 hrs pump Hyster Driver Required: No Accompanied by: Self / Same As Patient Allergies environmental allergies Allergy (Unknown, Verified 06/11/23 10:48) Itching HPI Comprehensive Diabetes Asmnt Most Recent Diabetes Results: Microalb/Creat Ratio 13.6 ug/mg cr 05/19/23 Creatinine 2.52 mg/dL (0.5-1.4) H 05/19/23 Blood Urea Nitrogen 29 mg/dL (9-16) H 05/19/23 Sodium 139 mmol/L (135-145) 05/19/23 Potassium 4.7 mmol/L (3.3-5.1) 05/19/23 Chloride 105 mmol/L (96-108) 05/19/23 Carbon Dioxide 24 mmol/L (22-29) 05/19/23 Calcium 9.7 mg/dL (8.4-10.2) 05/19/23 Albumin 4.2 g/dL (3.5-5.0) 05/19/23 PFSH Medical History Allergic rhinitis CKD stage 3 due to type 2 diabetes mellitus COVID-19 virus infection Diabetes type 2, uncontrolled Diabetic nephropathy associated with type 2 diabetes mellitus Dyslipidemia 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 The following topics were reviewed today: -Pump therapy basic concepts: Basal/bolus, insulin to carb ratio, correction factor, insulin on board -Device settings: Bluetooth/mobile connection (if applicable), correct date and time, sound volume -CGM settings(if integrated system): CGM graft views and trend arrows, alerts and alarms, Start new sensor Insulin delivery settings Program insulin to carb ratio, correction factor, target blood glucose, suspend or resume insulin delivery, bolus limit and basal limit settings Instructed patient to only use room temperature insulin, how to load cartridge or fill pod, with insulin. Fill tubing and cannula (if applicable) Inserting infusion set or starting pod Troubleshooting after starting new pod or inserting new insulin set: Occlusion, adhesive tape sensitivity, redness Check BG 2 hours after site change Safety information: Importance of a backup plan, for manual injections, proper prescriptions and emergency supplies ketone strips, and rules for testing for ketones Pump portions were signed downloaded Omnipod 5 yoly on patient's cellphone, or unable to continue insulin pump training because patient did not receive prescription for Omnipod 5 starter kit, in order to set up yoly on phone you need to also set up Omnipod PDM Requested prescription for Omnipod starter kit and vials of Lyumjev of to be sent to patient's pharmacy Setting verified by [facility] Patient will contact CDE with questions or concerns, patient given IT number to support in any technical issues related to insulin pump Patient Instructions: Patient will set up appointment to continue pump training kranthi Coding Level of Care Code Est Pt Level 1 (58870) Diagnoses CKD stage 3 due to type 2 diabetes mellitus E11.22; N18.30
== END 2023-07-19 08:59 | disposition home or self-care (01) ==
PROVIDERS: PCP Nurse Practitioner Family; Visit Provider Registered Nurse Diabetes Educator
DX: E11.22 Type 2 diabetes mellitus with diabetic chronic kidney disease (principal); N18.30 Chronic kidney disease, stage 3 unspecified

== ENCOUNTER → 2023-07-19 07:56 | Outpatient (BNVA) | payer OTHER, SELFPAY | PROVIDERS: PCP Nurse Practitioner Family; Visit Provider Registered Nurse Diabetes Educator | DX: E11.22 Type 2 diabetes mellitus with diabetic chronic kidney disease (principal); E11.21 Type 2 diabetes mellitus with diabetic nephropathy; N18.30 Chronic kidney disease, stage 3 unspecified; Z79.4 Long term (current) use of insulin; Z96.41 Presence of insulin pump (external) (internal); Z46.81 Encounter for fitting and adjustment of insulin pump | CPT/HCPCS: 99211 ==

== ENCOUNTER 2023-08-01 09:27 | Outpatient (AMB) | payer OTHER, SELFPAY ==
[2023-08-01 09:40] VITALS: BP 122/80; PULSE 68; O2SAT 98; BMI 32.6
--- NOTE | 2023-08-01 09:40 | MHC.PC.OV ---
Vital Signs 08/01/23 09:40 Height 5 ft 6 in Weight 202 lb 2 oz BMI 32.6 BP 122/80 Blood Pressure Location Lt brachial Position Sitting Pulse 68 Pulse Source Pulse Oximeter Pulse Oximetry (%) 98 Oxygen Delivery Method Room Air Intake Visit Reasons: 3 Month Follow up DM Allergies environmental allergies Allergy (Unknown, Verified 08/01/23 09:42) Itching Tobacco use date assessed: 08/01/23 Dental Screening Dental Screen Date: 08/01/23 Did you have a dental visit in the last 12 months?: Yes Did you have a dental problem in the last 6 months where you did not have access to dental care?: No Was dental information given to patient?: Patient has dentist HPI 3 Month Follow up DM HPI Details Pt is a diabetic, on an ARB and a statin. A1C in office today is 8.6. Microalbumin is up to date. Denies polyuria, polydipsia, does report intermittent neuropathy to toes. Pt denies any signs and symptoms of hypoglycemia and does know how to correct it. Pt uses a Dexcom and will be getting a pump soon. Eye exam is up to date. Pt is seeing endo. [facility] Medical History YISEL on CPAP Allergic rhinitis COVID-19 virus infection Malaise and fatigue Obesity (BMI 30-39.9) Vitamin D deficiency Dyslipidemia Non-toxic multinodular goiter CKD stage 3 due to type 2 diabetes mellitus Diabetic nephropathy associated with type 2 diabetes mellitus snf (current) use of insulin Hypothyroid Diabetes type 2, uncontrolled Surgical History Hx of colonoscopy Hx of coronary angiogram Sutured skin wound Lazy eye Family History Father Diabetes mellitus Diverticulitis Colitis Overweight Kidney problem Mental health disorder Heart disease Mother Diabetes mellitus Thyroid disease History of kidney cancer Liver problem Obese Psoriasis Sleep apnea Brother No problems noted. Paternal Grandmother Mental health disorder Social History Housing: House Alcohol intake: current Alcohol intake frequency: holidays/special occasions only Patient Tobacco Use Status: Never used Tobacco e-Cigarette/Vaping Use: Never Used Second Hand Smoke Exposure: No (not very often ) service: No Current occupational status: employed Current occupation: [employer] Cognitive needs: No Hearing needs: No Vision needs: No Questionnaire Thrive Questionnaire Date Thrive assessed: 11/22/22 BALDO-7 AMB Questionnaire BALDO-7 Date BALDO - 7 assessed: 11/22/22 Source: Developed by Drs. Zeke Cortés, Marlene Wong, Renato Sexton and colleagues, with an educational kailee from [employer]. Physical exam (Primary Care) Vital Signs: Last Vital Signs Pulse 68 08/01/23 09:40 BP 122/80 08/01/23 09:40 Pulse Ox 98 08/01/23 09:40 Oxygen Delivery Method Room Air 08/01/23 09:40 BMI result Body Mass Index 32.6 Tobacco/Smoking Status: Tobacco use Status Tobacco use date assessed 08/01/23 08/01/23 09:47 Patient Tobacco Use Status Never used Tobacco 08/01/23 09:47 e-Cigarette/Vaping Use Never Used 08/01/23 09:47 Thrive Assessment: Date of Thrive Assessment Date Thrive assessed 11/22/22 08/01/23 09:47 Const General: cooperative Nutritional Appearance: obese Orientation/consciousness: patient oriented x3 Resp Effort & Inspection: normal respiratory effort Auscultation: clear to auscultation bilaterally Cardio Rate: regular rate Rhythm: regular rhythm Heart sounds: S1 normal heart sound present and S2 normal heart sound present Neuro General: patient oriented x3 Extrem Other: bilat feet: + sensation with use of monofilament Psych Appearance: grossly normal Mental Status: mental status grossly normal Speech and movement: Normal speech and movement present Affect: normal affect Attitude: cooperative Thought process: Normal thought process present Thought content: Normal thought content present Insight: Good insight present (Psych) Judgement: Good judgement present (Psych) Results AMB Hemoglobin A1c AMB Hemoglobin A1c 8.6 % Last Edit by Lucero Nickerson CMA on 08/01/23 10:14 Results Reviewed Results Reviewed: Laboratory Last Values Hgb A1c (Clinic) 8.6 % (4.0-6.0) H 08/01/23 10:12 Assessment and Plan Assessment & Plan (1) Diabetic nephropathy associated with type 2 diabetes mellitus: Code(s): E11.21 - Type 2 diabetes mellitus with diabetic nephropathy Plan The patient agreed to the use of a clinical medical transcriptionist for this encounter. Scribed for TANIYA Vincent by Tahmina Woodard clinical medical transcriptionist, on 08/01/2023 at 10:00 EST. Orders: Orders AMB Hemoglobin A1c Today E11.65 - Type 2 diabetes mellitus with hyperglycemia Coding Level of Care Code Est Pt Level 3 (24201) Diagnoses Diabetic nephropathy associated with type 2 diabetes mellitus E11.21
== END 2023-08-01 10:07 | disposition home or self-care (01) ==
PROVIDERS: PCP Nurse Practitioner Family; Visit Provider Nurse Practitioner Family
DX: E11.21 Type 2 diabetes mellitus with diabetic nephropathy (principal); E11.65 Type 2 diabetes mellitus with hyperglycemia
CPT/HCPCS: 83036; 99213

== ENCOUNTER 2023-09-12 08:28 | Outpatient (AMB) | payer OTHER, SELFPAY ==
--- NOTE | 2023-09-12 09:18 | MHC.AMDMED ---
Intake Intake Visit Reasons: pump hop strainer Allergies environmental allergies Allergy (Unknown, Verified 08/01/23 09:42) Itching HPI Comprehensive Diabetes Asmnt Most Recent Diabetes Results: No Data to Display [facility] Medical History YISEL on CPAP Allergic rhinitis COVID-19 virus infection Malaise and fatigue Obesity (BMI 30-39.9) Vitamin D deficiency Dyslipidemia Non-toxic multinodular goiter CKD stage 3 due to type 2 diabetes mellitus Diabetic nephropathy associated with type 2 diabetes mellitus skilled nursing (current) use of insulin Hypothyroid Diabetes type 2, uncontrolled Surgical History Hx of colonoscopy Hx of coronary angiogram Sutured skin wound Lazy eye Family History Father Diabetes mellitus Diverticulitis Colitis Overweight Kidney problem Mental health disorder Heart disease Mother Diabetes mellitus Thyroid disease History of kidney cancer Liver problem Obese Psoriasis Sleep apnea Brother No problems noted. 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 First pod set up on Omnipod 5 PDM. Pump settings entered into patient's smart phone. Recommended to patient start next pod through yoly on smart phone The following topics were reviewed today: -Pump therapy basic concepts: Basal/bolus, insulin to carb ratio, correction factor, insulin on board -Device settings: Bluetooth/mobile connection (if applicable), correct date and time, sound volume -CGM settings(if integrated system): CGM graft views and trend arrows, alerts and alarms Insulin delivery settings Program insulin to carb ratio, correction factor, target blood glucose, suspend or resume insulin delivery, bolus limit and basal limit settings Instructed patient to only use room temperature insulin, how to load cartridge or fill pod, with insulin. Fill tubing and cannula (if applicable) Inserting infusion set or starting pod Troubleshooting after starting new pod or inserting new insulin set: Occlusion, adhesive tape sensitivity, redness Check BG 2 hours after site change Safety information: Importance of a backup plan, for manual injections, proper prescriptions and emergency supplies ketone strips, and rules for testing for ketones Patient was able to insert insulin set today without difficulty. Patient understands the basic concepts of pump therapy, how to give insulin for meals and snacks, how to troubleshoot for hyper and hypoglycemia. Setting verified by [facility] Basal rate(s) (units/hour) : 12 AM? to 12 AM? 0.75 units / hr Bolus setting Insulin Carbohydrate Ratio (s) 12? to 12 AM?1:5 Correction Factor / Sensitivity Factor 12 AM to 12 AM? 1:10 Active Insulin Time:? 4 hours Target(s): 12 AM? to 12 AM 120mg/dL Above 120 mg/dL Patient will follow up with CDE as instructed Patient will contact CDE with questions or concerns, patient given IT number to support in any technical issues related to insulin pump Coding Level of Care Code Est Pt Level 1 (39664) Diagnoses CKD stage 3 due to type 2 diabetes mellitus E11.22; N18.30
== END 2023-09-12 09:26 | disposition home or self-care (01) ==
PROVIDERS: PCP Nurse Practitioner Family; Visit Provider Registered Nurse Diabetes Educator
DX: E11.22 Type 2 diabetes mellitus with diabetic chronic kidney disease (principal); N18.30 Chronic kidney disease, stage 3 unspecified

== ENCOUNTER → 2023-09-12 08:28 | Outpatient (BNVA) | payer OTHER, SELFPAY | PROVIDERS: PCP Nurse Practitioner Family; Visit Provider Registered Nurse Diabetes Educator | DX: Z46.81 Encounter for fitting and adjustment of insulin pump (principal); E11.22 Type 2 diabetes mellitus with diabetic chronic kidney disease; N18.30 Chronic kidney disease, stage 3 unspecified | CPT/HCPCS: 99211 ==

== ENCOUNTER 2023-09-14 09:25 | Outpatient (AMB) | payer OTHER, SELFPAY ==
--- NOTE | 2023-09-14 09:30 | A.OFFVIS_ITS ---
Intake Vital Signs 09/14/23 09:36 Weight 206 lb BP 110/70 Blood Pressure Location Rt brachial Position Sitting Pulse 72 Pulse Source Pulse Oximeter Pulse Oximetry (%) 96 Oxygen Delivery Method Room Air Intake Visit Reasons: 2M follow up Sleep deprivation - LVM Intake Note: F/U Sleep, has cpap Dairy Chemist Required: No Allergies environmental allergies Allergy (Unknown, Verified 09/14/23 09:31) Itching HPI HPI Comments History of Present Illness0 Details 47 y/o male patient presents for follow up of YISEL on CPAP. The home sleep study result was significant for mild to moderate degree of sleep apnea. The total AHI was 15/hr and oxygen rashmi was 82%. The average O2 sat was 94%, and O2 sat below 88% for 2 min. Pt started APAP [id number]. The CPAP compliance and therapy response (06/15/23-09/12/23) reviewed. The usage days 97% and the average usage hours 6 hrs 10 min. The max pressure was 13.4 and AHI was 2.9/hr. Pt reports better quality sleep, wakes up refreshed a lot and has energy during daytime. He does not need to take a nap for 4-5 hrs anymore. [facility] Medical History YISEL on CPAP Allergic rhinitis COVID-19 virus infection Malaise and fatigue Obesity (BMI 30-39.9) Vitamin D deficiency Dyslipidemia Non-toxic multinodular goiter CKD stage 3 due to type 2 diabetes mellitus Diabetic nephropathy associated with type 2 diabetes mellitus assisted (current) use of insulin Hypothyroid Diabetes type 2, uncontrolled Surgical History Hx of colonoscopy Hx of coronary angiogram Sutured skin wound Lazy eye Family History Father Diabetes mellitus Diverticulitis Colitis Overweight Kidney problem Mental health disorder Heart disease Mother Diabetes mellitus Thyroid disease History of kidney cancer Liver problem Obese Psoriasis Sleep apnea Brother No problems noted. Paternal Grandmother Mental health disorder Social History (Updated 09/14/23 @ 09:36 by Debi Ocampo [facility]) Housing: House Alcohol intake: current Alcohol intake frequency: holidays/special occasions only Patient Tobacco Use Status: Never used Tobacco e-Cigarette/Vaping Use: Never Used Second Hand Smoke Exposure: No (not very often ) service: No Current occupational status: employed Current occupation: [employer] Cognitive needs: No Hearing needs: No Vision needs: No Review of Systems Const All systems reviewed & are unremarkable except as noted in HPI and below ENT Reports Normal hearing present Neuro Reports Normal hearing present Physical Exam Vital Signs: Last Vital Signs Pulse 72 09/14/23 09:36 BP 110/70 09/14/23 09:36 Pulse Ox 96 09/14/23 09:36 Oxygen Delivery Method Room Air 09/14/23 09:36 Const General: cooperative Nutritional Appearance: obese Orientation/consciousness: patient oriented x3 Resp Effort & Inspection: normal respiratory effort and able to speak in complete sentences Neuro Other: right eye exotropia. General: patient oriented x3 and gait normal Cranial nerves: Yes Bilaterally intact EOM present, Yes Normal facial strength present, Yes Midline tongue present, Yes Symmetric palate elevation present, Yes Normal hearing present, Yes Ability to bilaterally rotate head present and Yes Ability to bilaterally elevate shoulders present Motor exam (neuro): Pronator motor function not present and no tremor noted Assessment & Plan Assessment & Plan (1) YISEL on CPAP: Comment: Mild to moderate degree of sleep apnea. The AHI was 15/hr and oxygen rashmi was 82%. The patient has been started on CPAP therapy and he is being followed by the Sleep Medicine Service. Code(s): G47.33 - Obstructive sleep apnea (adult) (pediatric); Z99.89 - Dependence on other enabling machines and devices Plan Continue to use APAP [id number] as patient experiences good clinical effects, better quality sleep and daytime sleepiness has improved. Stressed compliance, use CPAP nightly and more than 4 hours. Clean mask and tubing regularly. Coding Level of Care Code Est Pt Level 3 (63177) Diagnoses YISEL on CPAP G47.33; Z99.89
[2023-09-14 09:36] VITALS: BP 110/70; PULSE 72; O2SAT 96
== END 2023-09-14 09:47 | disposition home or self-care (01) ==
PROVIDERS: Visit Provider Nurse Practitioner Family
DX: G47.33 Obstructive sleep apnea (adult) (pediatric) (principal); Z99.89 Dependence on other enabling machines and devices
CPT/HCPCS: 99213

== ENCOUNTER → 2023-09-14 09:25 | Outpatient (BNVA) | payer OTHER, SELFPAY | PROVIDERS: Visit Provider Nurse Practitioner Family | DX: R53.81 Other malaise (principal); R53.83 Other fatigue; E55.9 Vitamin D deficiency, unspecified; R07.9 Chest pain, unspecified; Z72.820 Sleep deprivation; R00.2 Palpitations; E66.9 Obesity, unspecified; E11.22 Type 2 diabetes mellitus with diabetic chronic kidney disease; N18.30 Chronic kidney disease, stage 3 unspecified; E11.65 Type 2 diabetes mellitus with hyperglycemia ==

== ENCOUNTER 2023-09-27 12:15 | Outpatient (AMB) | payer OTHER, SELFPAY ==
--- NOTE | 2023-09-27 12:47 | MHC.AMDMED ---
Intake Intake Visit Reasons: DM Intake Note: follow-up pump start visit Roofer Applicator Required: No Accompanied by: Self / Same As Patient Allergies environmental allergies Allergy (Unknown, Verified 09/14/23 09:31) Itching HPI Comprehensive Diabetes Asmnt Most Recent Diabetes Results: No Data to Display [facility] Medical History YISEL on CPAP Allergic rhinitis COVID-19 virus infection Malaise and fatigue Obesity (BMI 30-39.9) Vitamin D deficiency Dyslipidemia Non-toxic multinodular goiter CKD stage 3 due to type 2 diabetes mellitus Diabetic nephropathy associated with type 2 diabetes mellitus [facility] (current) use of insulin Hypothyroid Diabetes type 2, uncontrolled Surgical History Hx of colonoscopy Hx of coronary angiogram Sutured skin wound Lazy eye Family History Father Diabetes mellitus Diverticulitis Colitis Overweight Kidney problem Mental health disorder Heart disease Mother Diabetes mellitus Thyroid disease History of kidney cancer Liver problem Obese Psoriasis Sleep apnea Brother No problems noted. 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 Cognitive needs: No Hearing needs: No Vision needs: No Assessment & Plan Assessment & Plan (1) Diabetic nephropathy associated with type 2 diabetes mellitus: Code(s): E11.21 - Type 2 diabetes mellitus with diabetic nephropathy Plan: Omnipod 5 with Dexcom G6 The following topics were reviewed today: connecting Glooko account to patient's Omni Pod 5 We were unable to review glucose data today because patient is Insulet account was not connected to glucose count patient did state he felt that insulin carb ratio could be strengthened so see changes below Patient understands the basic concepts of pump therapy, how to give insulin for meals and snacks, how to troubleshoot for hyper and hypoglycemia. Setting verified by [facility] Basal rate(s) (units/hour) : 12 AM? to 12 AM? 0.75 units / hr Bolus setting Insulin Carbohydrate Ratio (s) 12? to 12 AM?1:5 New 12? to 12 AM?1:4.5 Correction Factor / Sensitivity Factor 12 AM to 12 AM? 1:10 Active Insulin Time:? 4 hours Target(s): 12 AM? to 12 AM 120mg/dL Above 120 mg/dL Patient will follow up with CDE as instructed Patient will contact CDE with questions or concerns, patient given IT number to support in any technical issues related to insulin pump Coding Level of Care Code Est Pt Level 1 (69187) Diagnoses Diabetic nephropathy associated with type 2 diabetes mellitus E11.21
== END 2023-09-27 12:51 | disposition home or self-care (01) ==
PROVIDERS: PCP Nurse Practitioner Family; Visit Provider Registered Nurse Diabetes Educator
DX: E11.21 Type 2 diabetes mellitus with diabetic nephropathy (principal)

== ENCOUNTER → 2023-09-27 12:15 | Outpatient (BNVA) | payer OTHER, SELFPAY | PROVIDERS: PCP Nurse Practitioner Family; Visit Provider Registered Nurse Diabetes Educator | DX: E11.65 Type 2 diabetes mellitus with hyperglycemia (principal); E11.22 Type 2 diabetes mellitus with diabetic chronic kidney disease; E11.21 Type 2 diabetes mellitus with diabetic nephropathy; N18.30 Chronic kidney disease, stage 3 unspecified; E03.9 Hypothyroidism, unspecified; Z79.4 Long term (current) use of insulin; Z96.41 Presence of insulin pump (external) (internal); Z46.81 Encounter for fitting and adjustment of insulin pump | CPT/HCPCS: 99211 ==

== ENCOUNTER 2023-10-24 08:54 | Outpatient (AMB) | payer OTHER, SELFPAY ==
--- NOTE | 2023-10-24 09:14 | MHC.AMDMED ---
Intake Intake Visit Reasons: DM Anger Control Counselor Required: No Accompanied by: Self / Same As Patient Allergies environmental allergies Allergy (Unknown, Verified 09/14/23 09:31) Itching HPI Comprehensive Diabetes Asmnt Most Recent Diabetes Results: Microalb/Creat Ratio 13.6 ug/mg cr 05/19/23 Cholesterol 168 mg/dL 11/08/22 HDL Cholesterol 34 mg/dL 11/08/22 Triglycerides 188 mg/dL 11/08/22 Creatinine 2.52 mg/dL (0.5-1.4) H 05/19/23 Blood Urea Nitrogen 29 mg/dL (9-16) H 05/19/23 Sodium 139 mmol/L (135-145) 05/19/23 Potassium 4.7 mmol/L (3.3-5.1) 05/19/23 Chloride 105 mmol/L (96-108) 05/19/23 Carbon Dioxide 24 mmol/L (22-29) 05/19/23 Calcium 9.7 mg/dL (8.4-10.2) 05/19/23 AST 16 U/L (5-37) 01/18/23 ALT 24 U/L (0-40) 01/18/23 Total Protein 7.0 g/dL (6.5-8.0) 01/18/23 Albumin 4.2 g/dL (3.5-5.0) 05/19/23 [facility] Medical History YISEL on CPAP Allergic rhinitis COVID-19 virus infection Malaise and fatigue Obesity (BMI 30-39.9) Vitamin D deficiency Dyslipidemia Non-toxic multinodular goiter CKD stage 3 due to type 2 diabetes mellitus Diabetic nephropathy associated with type 2 diabetes mellitus 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 Paternal Grandmother Mental health disorder Social History (Updated 09/14/23 @ 09:36 by Debi Ocampo [facility]) Housing: House Alcohol intake: current Alcohol intake frequency: holidays/special occasions only Patient Tobacco Use Status: Never used Tobacco e-Cigarette/Vaping Use: Never Used Second Hand Smoke Exposure: No (not very often ) service: No Current occupational status: employed Current occupation: [employer] Cognitive needs: No Hearing needs: No Vision needs: No Assessment & Plan Assessment & Plan (1) Diabetic nephropathy associated with type 2 diabetes mellitus: Code(s): E11.21 - Type 2 diabetes mellitus with diabetic nephropathy Plan: Omnipod 5 with Dexcom G6 The following topics were reviewed today: reviewed patient's data in glooko patient's average glucose the past 2 weeks 179 mg/dL patient above target 38% patient at target 62% patient below target 0% patient is still experiencing post meal hyperglycemia although he may changed insulin to carb ratio at last visit patient switched from Omnipod PTM to cellphone yoly so he has been using the insulin to carb ratio1-5 and not the 4.5 changed insulin to carb ratio in patient's cellphone yoly patient's last A1c on 08/01/2023 8.6% patient has upcoming visit with Dr. Colmenares on 12/17/2023, will have another A1c drawn at that visit Patient understands the basic concepts of pump therapy, how to give insulin for meals and snacks, how to troubleshoot for hyper and hypoglycemia. Setting verified by [facility] Basal rate(s) (units/hour) : 12 AM? to 12 AM? 0.75 units / hr Bolus setting Insulin Carbohydrate Ratio (s) 12? to 12 AM?1:5 New 12? to 12 AM?1:4.5 Correction Factor / Sensitivity Factor 12 AM to 12 AM? 1:10 Active Insulin Time:? 4 hours Target(s): 12 AM? to 12 AM 120mg/dL Above 120 mg/dL Patient will follow up with CDE as instructed Patient will contact CDE with questions or concerns, patient given IT number to support in any technical issues related to insulin pump Patient Instructions: patient will follow-up with special education paraeducator in 4 months Coding Level of Care Code Est Pt Level 1 (75023) Diagnoses Diabetic nephropathy associated with type 2 diabetes mellitus E11.21
== END 2023-10-24 09:23 | disposition home or self-care (01) ==
PROVIDERS: PCP Nurse Practitioner Family; Visit Provider Registered Nurse Diabetes Educator
DX: E11.21 Type 2 diabetes mellitus with diabetic nephropathy (principal)

== ENCOUNTER → 2023-10-24 08:54 | Outpatient (BNVA) | payer OTHER, SELFPAY | PROVIDERS: PCP Nurse Practitioner Family; Visit Provider Registered Nurse Diabetes Educator | DX: E11.21 Type 2 diabetes mellitus with diabetic nephropathy (principal); Z96.41 Presence of insulin pump (external) (internal) | CPT/HCPCS: 99211 ==

== ENCOUNTER 2023-10-29 10:57 | Outpatient (AMB) | payer OTHER, SELFPAY ==
--- NOTE | 2023-10-29 10:59 | A.OFFPC_ITS ---
Vital Signs 10/29/23 11:02 Height 5 ft 6 in Weight 202 lb BMI 32.6 BP 110/68 Blood Pressure Location Rt brachial Position Sitting Pulse 77 Pulse Source Pulse Oximeter Pulse Oximetry (%) 97 Oxygen Delivery Method Room Air Intake Visit Reasons: PE Allergies environmental allergies Allergy (Unknown, Verified 09/14/23 09:31) Itching Tobacco use date assessed: 08/01/23 Dental Screening Dental Screen Date: 10/29/23 Did you have a dental visit in the last 12 months?: Yes Did you have a dental problem in the last 6 months where you did not have access to dental care?: No Was dental information given to patient?: Patient has dentist HPI PE HPI Details Pt is here for a PE. Will order labs. Colon screen is up to date. Pt is a diabetic, sees endo. Encouraged pt to obtain pneumonia vaccine at his pharmacy. Hx of hypothyroid, will order labs. Dyslipidemia: On atorvastatin 20mg. Will order labs. 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 How often do you have a drink containing alcohol?: Never 3. How often do you have six or more drinks on one occasion?: Never Total Score: 0 Score Reviewed/Action Taken: No BALDO-7 AMB Questionnaire BALDO-7 Date BALDO - 7 assessed: 11/22/22 Source: Developed by Drs. Zeke Cortés, Marlene Wong, Renato Sexton and colleagues, with an educational kailee from [employer]. Review of Systems Const Denies chills and Denies fever(s) Eyes Denies blurry vision ENT Denies vertigo, Denies dizziness and Denies sore throat Card Denies chest pain at rest, Denies chest pain with activity, Denies diaphoresis, Denies dyspnea and Denies dyspnea on exertion Resp Denies cough, Denies dyspnea, Denies dyspnea on exertion and Denies wheezing GI Denies abdominal pain, Denies melena, Denies hematochezia, Denies constipation, Denies diarrhea and Denies loose stools Denies hematuria Musc Denies numbness and Denies tingling Skin/Breast Denies lesions Neuro Denies vertigo, Denies dizziness, Denies numbness and Denies tingling Psych Denies anxiety, Denies depression, Denies homicidal ideation, Denies suicidal ideation and Denies other (substance abuse) Aller/Immun Denies wheezing Physical exam (Primary Care) Vital Signs: Last Vital Signs Pulse 77 10/29/23 11:02 BP 110/68 10/29/23 11:02 Pulse Ox 97 10/29/23 11:02 Oxygen Delivery Method Room Air 10/29/23 11:02 BMI result Body Mass Index 32.6 Tobacco/Smoking Status: Tobacco use Status Tobacco use date assessed 08/01/23 10/29/23 11:04 Patient Tobacco Use Status Never used Tobacco 10/29/23 11:04 e-Cigarette/Vaping Use Never Used 10/29/23 11:04 Thrive Assessment: Date of Thrive Assessment Date Thrive assessed 11/22/22 10/29/23 11:04 Const General: cooperative Nutritional Appearance: obese Orientation/consciousness: patient oriented x3 HENMT Head: Yes normal to inspection, Yes normocephalic and Yes atraumatic Ears: TM's normal bilaterally Eyes General: appearance normal, both eyes and all related structures Alignment and Position: alignment normal and position normal Neck Neck: Yes normal visual inspection and Yes no lymphadenopathy Thyroid: Thyroid normal Resp Effort & Inspection: normal respiratory effort Auscultation: clear to auscultation bilaterally Cardio Rate: regular rate Rhythm: regular rhythm Heart sounds: S1 normal heart sound present, S2 normal heart sound present and no murmurs GI Palpation (GI): Soft to palpation and nontender Auscultation: normal bowel sounds Male General Exam: Yes normal external exam Penis: normal penis Scrotum: scrotum normal, testes descended bilaterally and no inguinal hernias Testes: no testicular mass Skin Rashes: no rashes Neuro General: patient oriented x3, moves all extremities, no focal motor deficits and deep tendon reflexes 2+ bilaterally Romberg Test: Negative Psych Appearance: grossly normal Mental Status: mental status grossly normal Speech and movement: Normal speech and movement present Affect: normal affect Attitude: cooperative Thought process: Normal thought process present Thought content: Normal thought content present Insight: Good insight present (Psych) Judgement: Good judgement present (Psych) Results AMB Hemoglobin A1c AMB Hemoglobin A1c 8.7 % Last Edit by BYRON Colon on 10/29/23 11 :33 Results Reviewed Results Reviewed: Laboratory Last Values Hgb A1c (Clinic) 8.7 % (4.0-6.0) H 10/29/23 11:32 Assessment and Plan Assessment & Plan (1) Hypothyroid: Code(s): E03.9 - Hypothyroidism, unspecified Plan: Labs ordered (2) Dyslipidemia: Code(s): E78.5 - Hyperlipidemia, unspecified Plan: Labs ordered (3) Physical exam: Code(s): Z00.00 - Encounter for general adult medical examination without abnormal findings Plan The patient agreed to the use of a medical intern for this encounter. Scribed for TANIYA Vincent by sadiq Renteria scribe, on 10/29/2023 at 11:15 EST. Orders: Orders Complete Blood Count Auto Diff Today E03.9 - Hypothyroidism, unspecified, E78.5 - Hyperlipidemia, unspecified TSH reflex Free T4 Today E03.9 - Hypothyroidism, unspecified, E78.5 - Hyperlipidemia, unspecified Lipid Panel Today E03.9 - Hypothyroidism, unspecified, E78.5 - Hyperlipidemia, unspecified Comprehensive Met. Panel Today E03.9 - Hypothyroidism, unspecified, E78.5 - Hyperlipidemia, unspecified UA CC w/rflx Micro + Cult Today E03.9 - Hypothyroidism, unspecified, E78.5 - Hyperlipidemia, unspecified AMB Hemoglobin A1c Today Z13.9 - Encounter for screening, unspecified Coding Level of Care Code Est Pt Prev Care 40-64y(15000) Diagnoses Hypothyroid E03.9 Dyslipidemia E78.5 Physical exam Z00.00
[2023-10-29 11:02] VITALS: BP 110/68; PULSE 77; O2SAT 97; BMI 32.6
== END 2023-10-29 11:23 | disposition home or self-care (01) ==
PROVIDERS: Visit Provider Nurse Practitioner Family
DX: Z00.00 Encounter for general adult medical examination without abnormal findings (principal); E03.9 Hypothyroidism, unspecified; E78.5 Hyperlipidemia, unspecified; E11.9 Type 2 diabetes mellitus without complications
CPT/HCPCS: 83036; 99396

== ENCOUNTER 2023-12-21 09:28 | Outpatient (AMB) | payer OTHER, SELFPAY ==
[2023-12-21 09:33] VITALS: BP 120/74; PULSE 83; TEMP 36.4; O2SAT 96; BMI 32.1
--- NOTE | 2023-12-21 09:33 | AM.OFFWIN_ITS ---
Intake Vital Signs 12/21/23 09:33 Height 5 ft 6 in Weight 199 lb BMI 32.1 BP 120/74 Blood Pressure Location Lt brachial Position Sitting Pulse 83 Pulse Source Pulse Oximeter Temp 97.6 F Temp Source Temporal Artery Scan Pulse Oximetry (%) 96 Oxygen Delivery Method Room Air Intake Visit Reasons: EST/sinus pressure X1 week/vertigo(lobby masked) Intake Note: pt is here today for sinus pressure and vertigo started 1 week ago Patient Tobacco Use Status: Never used Tobacco Allergies environmental allergies Allergy (Unknown, Verified 12/21/23 09:34) Itching Do you need a note to return to daycare/school/sports/work: Yes (RETURN TO WORK SUNDAY) Return to daycare/school/sports/work/other note: work HPI HPI Comments History of Present Illness Details 48 y/o male patient presents to walk in clinic with c/o Sinus headaches associated with dizziness x 1 week. Reports worse headache of my life rates 6/10 on pain scale. Pain located right front/temporal and occipital. Headaches associated with light and sound sensitivity. Denies Nausea or vomiting. Denies Fevers, chills. PFSH Medical History YISEL on CPAP Allergic rhinitis COVID-19 virus infection Malaise and fatigue Obesity (BMI 30-39.9) Vitamin D deficiency Dyslipidemia Non-toxic multinodular goiter CKD stage 3 due to type 2 diabetes mellitus Diabetic nephropathy associated with type 2 diabetes mellitus assisted (current) use of insulin Hypothyroid Diabetes type 2, uncontrolled Surgical History Hx of colonoscopy Hx of coronary angiogram Sutured skin wound Lazy eye Family History Father Diabetes mellitus Diverticulitis Colitis Overweight Kidney problem Mental health disorder Heart disease Mother Diabetes mellitus Thyroid disease History of kidney cancer Liver problem Obese Psoriasis Sleep apnea Brother No problems noted. 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 Cognitive needs: No Hearing needs: No Vision needs: No Review of Systems Const All systems reviewed & are unremarkable except as noted in HPI and below Physical Exam Vital Signs: Last Vital Signs Temp 97.6 F 12/21/23 09:33 Pulse 83 12/21/23 09:33 BP 120/74 12/21/23 09:33 Pulse Ox 96 12/21/23 09:33 Oxygen Delivery Method Room Air 12/21/23 09:33 BMI result Body Mass Index 32.1 Const General: comfortable and no acute distress HEENT Head: Yes normocephalic Ears: external ears normal and TM's normal bilaterally General nose exam: Normal nares present Face and sinus: Yes sinuses nontender Mouth: Normal oral and palatal mucosa present and moist mucous membranes Throat: Yes posterior oropharynx normal Resp Effort & Inspection: normal respiratory effort Auscultation: clear to auscultation bilaterally Cardio Rate: regular rate Rhythm: regular rhythm Assessment & Plan Assessment & Plan (1) Unilateral headache: Code(s): R51.9 - Headache, unspecified Plan: - Migraine headaches with Aura - Keep headache diary - Avoid triggers - Take Imitrex before the on set of headache. - Rest in the Dark quite room Plan - Migraine headaches with Aura - Keep headache diary - Avoid triggers - Take Imitrex before the on set of headache. - Rest in the Dark quite room Medications: New sumatriptan succinate (Imitrex) Take 1 tab at onset of headache; if no relief may repeat 1 tab after at least 2 hrs; max = 3 tabs/24 hr PO 30 tabs 0RF HEADACHE R51.9 - Headache, unspecified Coding Level of Care Code Est Pt Level 3 (45883) Diagnoses Unilateral headache R51.9 Time Spent (min) 15
== END 2023-12-21 10:31 | disposition home or self-care (01) ==
PROVIDERS: PCP Nurse Practitioner Family; Visit Provider Nurse Practitioner Family
DX: R51.9 Headache, unspecified (principal)
CPT/HCPCS: 99213

== ENCOUNTER 2024-01-30 12:56 | Outpatient (REF) | payer OTHER, SELFPAY ==
[2024-01-30 16:27] LABS: MANUAL DIFF FLAG NO
[2024-01-30 16:29] LABS: Basophils Percent Auto 0.6 % (0-2); Eosinophils Absolute Auto 0.2 X10*3/uL (0.0-0.4); Eosinophils Percent Auto 3.5 % (0-4); Hematocrit 45.9 % (42.0-52.0); Hemoglobin 15.3 g/dl (14.0-18.0); Imm Gran Abs Auto 0.02 X10*3/uL (0.00-0.03); Imm Gran Pct Auto 0.4 % (0.0-0.4); Lymphocytes Absolute Auto 1.3 X10*3/uL (1.2-4.9); Lymphocytes Percent Auto 25.8 % (20-40); Mean Corpuscular HGB Conc 33.3 g/dl (31.0-36.0); Mean Corpuscular Hemoglobin 30.2 pg (27.0-33.0); Mean Corpuscular Volume 90.5 fL (80.0-98.0); Mean Platelet Volume 10.2 fL (9.4-12.4); Monocytes Absolute Auto 0.5 X10*3/uL (0.1-1.2); Monocytes Percent Auto 8.8 % (2-11); Neutrophils Absolute Auto 3.1 x10*3/uL (2.0-8.3); Neutrophils Percent Auto 60.9 % (45-73); Platelet Count 193 X10*3/uL (160-400); Red Blood Count 5.07 X10*6/uL (4.60-5.80); Red Cell Distribution Width 14.1 % (11.0-16.0); White Blood Count 5.1 X10*3/uL (4.8-10.8)
[2024-01-30 16:47] LABS: Alanine Aminotransferase 25 U/L (0-40); Albumin Level 4.2 g/dL (3.5-5.0); Alkaline Phosphatase 62 U/L (39-117); Anion Gap 11 (12-20); Aspartate Amino Transferase 21 U/L (5-37); Bilirubin Total 0.4 mg/dL (0.0-1.0); Blood Urea Nitrogen 25 mg/dL (9-16); Calcium 9.3 mg/dL (8.4-10.2); Carbon Dioxide 27 mmol/L (22-29); Chloride 108 mmol/L (96-108); Cholesterol 147 mg/dL (<200); Estimated Glomerular Filt Rate 34; Glucose Random 112 mg/dL (60-115); HDL Cholesterol 36 mg/dL (>40); LDL Cholesterol Calculated 82 mg/dL (<100); Sodium 142 mmol/L (135-145); Triglycerides 146 mg/dL (<150)
[2024-01-30 16:53] LABS: Appearance Urine Clear; Color Urine Yellow; Glucose Urine UA >=1000 mg/dL (Negative); Leukocyte Esterase Urine Negative (Negative); Nitrite Urine Negative (Negative); PH 5.5 (5.0-9.0); UMIC TRIGGER UACC YES; Urine Blood Negative (Negative); Urine Ketones Negative (Negative); Urine Protein Negative (Neg-Trace)
[2024-01-30 17:22] LABS: Bacteria Urine None Seen (None Seen); Hyaline Casts Urine 0-2 /LPF (0-2); RBC Urine 0-2 /HPF (0-2); Squamous Epithelial Cell Urine 0-2 /HPF (0-2); WBC Urine 0-5 /HPF (0-5)
[2024-01-30 18:06] LABS: TSH reflex Free T4 1.83 uIU/mL (0.32-4.0)
== END 2024-01-30 12:57 | disposition home or self-care (01) ==
LOC: HO.HMGCLDS 12:56
PROVIDERS: PCP Nurse Practitioner Family; Visit Provider Nurse Practitioner Family
DX: E03.9 Hypothyroidism, unspecified (principal); E78.5 Hyperlipidemia, unspecified
CPT/HCPCS: 36415; 80053; 80061; 81001; 84443; 85025

== ENCOUNTER 2024-02-07 09:12 | Outpatient (AMB) | payer OTHER, SELFPAY ==
--- NOTE | 2024-02-07 09:20 | MHC.PC.OV ---
Vital Signs 02/07/24 09:23 Height 5 ft 6 in Weight 197 lb BMI 31.8 BP 120/70 Blood Pressure Location Lt brachial Position Sitting Pulse 80 Pulse Source Pulse Oximeter Pulse Oximetry (%) 98 Oxygen Delivery Method Room Air Intake Visit Reasons: 6 month fu Intake Note: pt is here for 6 month follow up Allergies environmental allergies Allergy (Unknown, Verified 02/07/24 10:17) Itching Medication List - Last Reconciled 02/07/24 by Broderick Power, DEPARTMENT SUPERVISOR- albuterol sulfate 90 mcg/actuation 2 puffs inhalation ONCE PRN atorvastatin 20 mg PO DAILY blood-glucose meter,continuous (Dexcom G6 Health Information Director) As directed blood-glucose sensor (Dexcom G6 Sensor device) As directed blood-glucose transmitter (Dexcom G6 Transmitter device) As directed calcitriol 0.25 mcg PO Q OTHER DAY cetirizine (Zyrtec) 10 mg PO DAILY PRN cholecalciferol (vitamin D3) 125 mcg PO DAILY citalopram 20 mg PO DAILY 90 days dapagliflozin propanediol (Farxiga) 10 mg PO DAILY insulin lispro-aabc (Lyumjev U-100 Insulin) Infuse up to 75 units per day by insulin pump subcutaneously 3 times a day; insulin pump cart,auto,BT-cntr (Omnipod 5 G6 Intro Kit (Gen 5) subcutaneous cartridge with controller) As directed insulin pump cart,automated,BT (Omnipod 5 G6 Pods (Gen 5) subcutaneous cartridge) As directed change pod every 48 hours levothyroxine 112 mcg PO QAM 90 days losartan 50 mg (2 x 25 mg) PO DAILY metoprolol succinate ER (Toprol XL) 25 mg PO DAILY 90 days sumatriptan succinate (Imitrex) Take 1 tab at onset of headache; if no relief may repeat 1 tab after at least 2 hrs; max = 3 tabs/24 hr PO Tobacco use date assessed: 02/07/24 Dental Screening Dental Screen Date: 02/07/24 Did you have a dental visit in the last 12 months?: Yes Did you have a dental problem in the last 6 months where you did not have access to dental care?: No Was dental information given to patient?: Patient has dentist HPI 6 month fu HPI Details Pt is a diabetic, sees endo. A1C in office today is 8.0, trending down. Pt has a pump, though he reports that he sometimes bumps into things with the pump. He will speak with endo about this. HTN: Blood pressure is stable, managed with losartan 50mg and metoprolol 25mg. Denies chest pain, shortness of breath, headache, dizziness, and blurred vision. Will repeat labs in 3 months. 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 Paternal Grandmother Mental health disorder Social History Housing: House Alcohol intake: current Alcohol intake frequency: holidays/special occasions only Patient Tobacco Use Status: Never used Tobacco e-Cigarette/Vaping Use: Never Used Second Hand Smoke Exposure: No (not very often ) service: No Current occupational status: employed Current occupation: [employer] Cognitive needs: No Hearing needs: No Vision needs: No Questionnaire PHQ-9 Over the last 2 weeks, how often have you been bothered by any of the following problems? 1. Little interest or pleasure in doing things: several days 2. Feeling down, depressed, or hopeless: several days 3. Trouble falling or staying asleep, or sleeping too much: more than half the days 4. Feeling tired or having little energy: more than half the days 5. Poor appetite or overeating: more than half the days 6. Feeling bad about yourself - or that you are a failure or have let yourself or your family down: several days 7. Trouble concentrating on things, such as reading the newspaper or watching television: not at all 8. Moving or speaking so slowly that other people could have noticed. Or the opposite - being so fidgety or restless that you have been moving around a lot more than usual: not at all 9. Thoughts that you would be better off or of hurting yourself in some way: not at all Total score: 9 Depression Screening Interpretation: Negative Depression Screening Done: Yes 38846 - PHQ-9 Billing: Yes Source: Developed by Drs. Zeke Cortés, Marlene Wong, Renato Setxon and colleagues, with an educational kailee from [employer]. Thrive Questionnaire Date Thrive assessed: 02/07/24 I am a: Patient What is your living situation today?: I have a steady place to live Within the past 12 months, did the food you bought not last and you didn't have the money to get more?: Never true Within the past 12 months, did you worry whether your food would run out before you got money to buy more?: Never true Do you have trouble paying for medicines?: No Do you have trouble getting transportation to medical appointments?: No Do you have trouble paying your heating and electricity bill?: No Do you have trouble taking care of your child, family member or friend?: No Do you have trouble with day-to-day activities such as bathing, preparing meals, shopping, managing finances, etc.?: No Are you currently unemployed and looking for a job?: No Are you interested in more education?: No Please select the resources that you would like help with: None Currently or been in a relationship where the following occur: no concerns reported THRIVE Score: 0 AUDIT C Alcohol Use Questionnaire (AUDIT-C) 1. How often do you have a drink containing alcohol?: Never 3. How often do you have six or more drinks on one occasion?: Never Total Score: 0 Score Reviewed/Action Taken: Yes BALDO-7 AMB Questionnaire BALDO-7 Date BALDO - 7 assessed: 02/07/24 Feeling nervous, anxious, or on edge: 1 = Several days Not being able to stop or control worryin = Not at all Worrying too much about different things: 0 = Not at all Trouble relaxin = Several days Being so restless that it is hard to sit still: 0 = Not at all Becoming easily annoyed or irritable: 2 = More than half the days Feeling afraid as if something awful might happen: 0 = Not at all Total BALDO-7 score (0-4 normal; 5-9 mild; 10-14 moderate; 15-21 severe): 4 Source: Developed by Drs. Zeke Cortés, Marlene Wong, Renato Sexton and colleagues, with an educational kailee from [employer]. BALDO-7 Assessment Billing BALDO-7 Assessment Tool: BALDO-7 Assessment 50174 Review of Systems Const Reports as per HPI Physical exam (Primary Care) Vital Signs: Last Vital Signs Pulse 80 02/07/24 09:23 BP 120/70 02/07/24 09:23 Pulse Ox 98 02/07/24 09:23 Oxygen Delivery Method Room Air 02/07/24 09:23 BMI result Body Mass Index 31.8 Tobacco/Smoking Status: Tobacco use Status Tobacco use date assessed 02/07/24 02/07/24 09:27 Patient Tobacco Use Status Never used Tobacco 02/07/24 09:21 e-Cigarette/Vaping Use Never Used 02/07/24 09:21 Depression Screening Interpretation: Negative Thrive Assessment: Date of Thrive Assessment Date Thrive assessed 11/22/22 02/07/24 09:21 Currently or been in a relationship where the following occur: no concerns reported Const General: cooperative Nutritional Appearance: obese Orientation/consciousness: patient oriented x3 Resp Effort & Inspection: normal respiratory effort Auscultation: clear to auscultation bilaterally Cardio Rate: regular rate Rhythm: regular rhythm Heart sounds: S1 normal heart sound present and S2 normal heart sound present Neuro General: patient oriented x3 Extrem Other: bilat feet: + sensation with use of monofilament, feet intact Psych Appearance: grossly normal Mental Status: mental status grossly normal Speech and movement: Normal speech and movement present Affect: normal affect Attitude: cooperative Thought process: Normal thought process present Thought content: Normal thought content present Insight: Good insight present (Psych) Judgement: Good judgement present (Psych) Results AMB Hemoglobin A1c AMB Hemoglobin A1c 8.0 % Last Edit by Vito Gonzalez CMA on 02/07/24 09:40 Assessment and Plan Assessment & Plan (1) HTN (hypertension): Code(s): I10 - Essential (primary) hypertension Plan: Labs ordered (2) Diabetes type 2, uncontrolled: Code(s): E11.65 - Type 2 diabetes mellitus with hyperglycemia Qualifiers: Glycemic state: with hyperglycemia Qualified Code(s): E11.65 - Type 2 diabetes mellitus with hyperglycemia Plan: Labs ordered, seeing endo Plan The patient agreed to the use of a medical cost consultant for this encounter. Scribed for TALIB Vincent-JACQUELINE by sadiq Renteria scribe, on 02/07/2024 at 09:30 EST. Orders: Orders Complete Blood Count Auto Diff 3 Months I10 - Essential (primary) hypertension TSH reflex Free T4 3 Months I10 - Essential (primary) hypertension Lipid Panel 3 Months I10 - Essential (primary) hypertension AMB Hemoglobin A1c Today Z13.9 - Encounter for screening, unspecified Microalbumin, Random (w Creat) 3 Months E11.65 - Type 2 diabetes mellitus with hyperglycemia Comprehensive [place]. Panel Fast 3 Months I10 - Essential (primary) hypertension UA CC w/rflx Micro + Cult 3 Months I10 - Essential (primary) hypertension Coding Level of Care Code Est Pt Level 3 (25809) Diagnoses HTN (hypertension) I10 Uncontrolled type 2 diabetes mellitus with hyperglycemia E11.65 Glycemic state: with hyperglycemia Additional Codes BALDO-7 Assessment Billing - BALDO-7 Assessment Tool: BALDO-7 Assessment [id number] ([id number])
[2024-02-07 09:23] VITALS: BP 120/70; PULSE 80; O2SAT 98; BMI 31.8
== END 2024-02-07 09:42 | disposition home or self-care (01) ==
PROVIDERS: PCP Nurse Practitioner Family; Visit Provider Nurse Practitioner Family
DX: I10 Essential (primary) hypertension (principal); E11.65 Type 2 diabetes mellitus with hyperglycemia; Z13.9 Encounter for screening, unspecified
CPT/HCPCS: 83036; 99213

== ENCOUNTER 2024-03-10 09:54 | Outpatient (AMB) | payer OTHER, SELFPAY ==
--- NOTE | 2024-03-10 10:19 | A.OFFVIS_ITS ---
Intake Intake Visit Reasons: DM-lvm Social Media Specialist Required: No Accompanied by: Self / Same As Patient Allergies environmental allergies Allergy (Unknown, Verified 02/07/24 10:17) Itching HPI Comprehensive Diabetes Asmnt Most Recent Diabetes Results: Microalb/Creat Ratio 13.6 ug/mg cr 05/19/23 Cholesterol 147 mg/dL (<200) 01/30/24 HDL Cholesterol 36 mg/dL (>40) L 01/30/24 Triglycerides 146 mg/dL (<150) 01/30/24 Creatinine 2.10 mg/dL (0.5-1.4) H 01/30/24 Blood Urea Nitrogen 25 mg/dL (9-16) H 01/30/24 Sodium 142 mmol/L (135-145) 01/30/24 Potassium 4.0 mmol/L (3.3-5.1) 01/30/24 Chloride 108 mmol/L (96-108) 01/30/24 Carbon Dioxide 27 mmol/L (22-29) 01/30/24 Calcium 9.3 mg/dL (8.4-10.2) 01/30/24 AST 21 U/L (5-37) 01/30/24 ALT 25 U/L (0-40) 01/30/24 Total Protein 7.0 g/dL (6.5-8.0) 01/30/24 Albumin 4.2 g/dL (3.5-5.0) 01/30/24 COUNT INCLUDES THE [facility] Medical History YISEL on CPAP Allergic rhinitis COVID-19 virus infection Malaise and fatigue Obesity (BMI 30-39.9) Vitamin D deficiency Dyslipidemia Non-toxic multinodular goiter CKD stage 3 due to type 2 diabetes mellitus Diabetic 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 Paternal Grandmother Mental health disorder Social History Housing: House Alcohol intake: current Alcohol intake frequency: holidays/special occasions only Patient Tobacco Use Status: Never used Tobacco e-Cigarette/Vaping Use: Never Used Second Hand Smoke Exposure: No (not very often ) service: No Current occupational status: employed Current occupation: [employer] Cognitive needs: No Hearing needs: No Vision needs: No Assessment & Plan Assessment & Plan (1) Diabetic nephropathy associated with type 2 diabetes mellitus: Code(s): E11.21 - Type 2 diabetes mellitus with diabetic nephropathy Plan: Omnipod 5 with Dexcom G6 The following topics were reviewed today: Patient reports experiencing discomfort at insulin delivery site, suggested to patient we change rate of insulin infusion when he reinitiate it is insulin pump therapy Patient has been unable to wear insulin pump for the last month, he is out of Dexcom G6 sensors and transmitter. Patient given sample G6 sensors, and transmitter so he can reinitiate pump therapy patient has upcoming visit with Dr. Colmenares on 04/09/2024, patient instructed to ask Dr. Colmenares to make sure it paperwork for Dexcom G6 sensors are submitted kranthi after visit Patient's last A1c on 02/07/2024 8%, down from last A1c of 8.6% Patient understands the basic concepts of pump therapy, how to give insulin for meals and snacks, how to troubleshoot for hyper and hypoglycemia. Setting verified by CDCES, no changes made to insulin pump settings at this visit Basal rate(s) (units/hour) : 12 AM? to 12 AM? 0.75 units / hr Bolus setting Insulin Carbohydrate Ratio (s) 12? to 12 AM?1:4.5 Correction Factor / Sensitivity Factor 12 AM to 12 AM? 1:10 Active Insulin Time:? 4 hours Target(s): 12 AM? to 12 AM 120mg/dL Above 120 mg/dL Patient will follow up with CDE as instructed Patient will contact CDE with questions or concerns, patient given IT number to support in any technical issues related to insulin pump Coding Level of Care Code Est Pt Level 1 (59089) Diagnoses Diabetic nephropathy associated with type 2 diabetes mellitus E11.21
== END 2024-03-10 10:26 | disposition home or self-care (01) ==
LOC: HO.ENCR 10:02
PROVIDERS: PCP Nurse Practitioner Family; Visit Provider Registered Nurse Diabetes Educator
DX: E11.21 Type 2 diabetes mellitus with diabetic nephropathy (principal)

== ENCOUNTER → 2024-03-10 10:02 | Outpatient (BNVA) | payer OTHER, SELFPAY | PROVIDERS: PCP Nurse Practitioner Family; Visit Provider Registered Nurse Diabetes Educator | DX: E11.21 Type 2 diabetes mellitus with diabetic nephropathy (principal); Z96.41 Presence of insulin pump (external) (internal) | CPT/HCPCS: 99211 ==

== ENCOUNTER 2024-04-03 14:25 | Outpatient (AMB) | payer OTHER, SELFPAY ==
[2024-04-03 14:26] VITALS: BP 110/60; PULSE 83; BMI 32.1
--- NOTE | 2024-04-03 14:26 | A.OFFVIS_ITS ---
Vital Signs 04/03/24 14:26 Height 5 ft 6 in Weight 198 lb 10.184 oz BMI 32.1 BP 110/60 Blood Pressure Location Lt brachial Position Sitting Pulse 83 Pulse Source Pulse Oximeter Intake Visit Reasons: f/u Type 2 DM-lvm Intake Note: Patient presents today to follow up on D2MT. Last Diabetic Eye exam: 2022 Last Podiatry Visit:Doesn't have one Random Glucose: 170 mg/dl HgA1c: 8.0% 02/07/24 Dressmaker Or Tailor Required: No Accompanied by: Self / Same As Patient Allergies environmental allergies Allergy (Unknown, Verified 04/03/24 14:31) Itching Medication List - Last Reconciled 04/03/24 by Zeke Colmenares MD albuterol sulfate 90 mcg/actuation 2 puffs inhalation ONCE PRN atorvastatin 20 mg (1/2 x 40 mg) PO DAILY 90 days blood-glucose meter,continuous (Dexcom G6 Zoning Engineer) As directed blood-glucose sensor (Dexcom G6 Sensor device) As directed blood-glucose transmitter (Dexcom G6 Transmitter device) As directed calcitriol 0.25 mcg PO Q OTHER DAY cetirizine (Zyrtec) 10 mg PO DAILY PRN cholecalciferol (vitamin D3) 125 mcg PO DAILY citalopram 20 mg PO DAILY 90 days dapagliflozin propanediol (Farxiga) 10 mg PO DAILY insulin lispro-aabc (Lyumjev U-100 Insulin) Infuse up to 75 units per day by insulin pump subcutaneously 3 times a day; insulin pump cart,auto,BT-cntr (Omnipod 5 G6 Intro Kit (Gen 5) subcutaneous cartridge with controller) As directed insulin pump cart,automated,BT (Omnipod 5 G6 Pods (Gen 5) subcutaneous cartridge) As directed change pod every 48 hours levothyroxine 112 mcg PO QAM 90 days losartan 50 mg (2 x 25 mg) PO DAILY metoprolol succinate ER (Toprol XL) 25 mg PO DAILY 90 days sumatriptan succinate (Imitrex) Take 1 tab at onset of headache; if no relief may repeat 1 tab after at least 2 hrs; max = 3 tabs/24 hr PO HPI Comments Details: Patient is a 48-year-old male with DM type 2 in setting of CKD stage 3 B referred by who presents for management of diabetes. 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 Basal rate(s) (units/hour) : 12 AM? to 12 AM? 0.75 units / hr Bolus setting Insulin Carbohydrate Ratio (s) 12? to 12 AM?1:4.5 Correction Factor / Sensitivity Factor 12 AM to 12 AM? 1:10 Active Insulin Time:? 4 hours Target(s): 12 AM? to 12 AM 120mg/dL Above 120 mg/dL Total daily use of insulin is 49.4 units. 62% is basal and 38% bolus. The automated mode is use 100% of the time. Total carbohydrates is 118 He is only wearing the pump a small portion of the time and having difficulty keeping the pump inserted . CGM: In the past 14 days C GM is active 71% with an average blood glucose of 209 Glucose variability 63 Glucose in target range of 70-180, 35%. Glucose high from 181-250, 41%. Glucose very high over 250,23%. Patient has rare blood glucose near 100 and the rest is 100 or above. Patent shows increasing blood sugars in the morning hours and after dinner Sleeps until noon each day Symptoms reported: denies numbness, tingling, cramping in lower extremities Hypoglycemia: very infrequent Hyperglycemia: + urinary frequency, + nocturia (1-2x), + polydypsia Environmental Planning Engineer - CDE education: Undercover Operator: a while Dental exam: this yr Ophthalmology evaluation: last APPT - needs to make appt Other specialists: Aircraft Seat Upholsterer Laboratory Tests 03/22/21 08/15/21 12/16/21 09:00 12:10 12:32 Creatinine 2.15 H Estimated GFR 34 Hemoglobin A1c % Triglycerides 183 LDL Cholesterol Direct 129 H Cholesterol 255 D LDL Cholesterol, Calc 172 HDL Cholesterol 47 25-OH Vitamin D Total 30.8 TSH 5.73 H Free T4 1.04 Microalb/Creat Ratio 12/16/21 12/16/21 12:32 12:32 Creatinine Estimated GFR Hemoglobin A1c % 9.2 Triglycerides LDL Cholesterol Direct Cholesterol LDL Cholesterol, Calc HDL Cholesterol 25-OH Vitamin D Total TSH Free T4 Microalb/Creat Ratio 311.5 [facility] Medical History YISEL on CPAP Allergic rhinitis COVID-19 virus infection Malaise and fatigue Obesity (BMI 30-39.9) Vitamin D deficiency Dyslipidemia Non-toxic multinodular goiter CKD stage 3 due to type 2 diabetes mellitus Diabetic nephropathy associated with type 2 diabetes mellitus skilled nursing (current) use of insulin Hypothyroid Diabetes type 2, uncontrolled Surgical History Hx of colonoscopy Hx of coronary angiogram Sutured skin wound Lazy eye Family History Father Diabetes mellitus Diverticulitis Colitis Overweight Kidney problem Mental health disorder Heart disease Mother Diabetes mellitus Thyroid disease History of kidney cancer Liver problem Obese Psoriasis Sleep apnea Brother No problems noted. 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 Absence of acromegalic features. Neck exam reveals nl size thyroid about 15 gms. No thyroid nodules palpable. No carotid bruits present. Lungs CTA. Heart S1 S2, Reg R/R. No M/R/ G. Skin exam reveals absence of vitiligo or acanthosis nigricans. Abdominal exam reveals Soft NT/ND with NA BS. No organomegaly present. Neck Other: . Extrem Other: Visual exam of foot performed. No ulcerations or open lesions. No onchomycosis, no callouses.Pulses 2 + distally Sensation intact to monofilament exam. Vibratory sensation sensed is intact with 128 Hz tuning fork Assessment & Plan Assessment & Plan (1) Diabetes type 2, uncontrolled: Code(s): E11.65 - Type 2 diabetes mellitus with hyperglycemia Category: Medical Qualifiers: Glycemic state: with hyperglycemia Qualified Code(s): E11.65 - Type 2 diabetes mellitus with hyperglycemia Plan: This is a 48-year-old white male with a history of type 2 diabetes being treated with Farxiga and insulin pump with poor deteriorated improved glycemic control and known microvascular complications namely CKD stage IIIB. Plan is not to make any changes to the pump setting of the patient with a pump more frequently Have patient follow up with nurses educator to trouble shoot to keep the pump on more frequently (2) Hypothyroid: Code(s): E03.9 - Hypothyroidism, unspecified Category: Medical Qualifiers: Hypothyroidism type: due to Brandon's thyroiditis Qualified Code(s): E03.8 - Other specified hypothyroidism; E06.3 - Autoimmune thyroiditis Plan: Clinically and biochemically euthyroid on 112 mcg levothyroxine Coding Level of Care Code Est Pt Level 4 (09810) Diagnoses Uncontrolled type 2 diabetes mellitus with hyperglycemia E11.65 Glycemic state: with hyperglycemia 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
[2024-04-03 14:37] LABS: Glucose, Whole Blood 170 mg/dL (60-115)
== END 2024-04-03 14:48 | disposition home or self-care (01) ==
PROVIDERS: PCP Nurse Practitioner Family; Visit Provider Internal Medicine Endocrinology, Diabetes & Metabolism
DX: E11.65 Type 2 diabetes mellitus with hyperglycemia (principal); E03.8 Other specified hypothyroidism; E06.3 Autoimmune thyroiditis
CPT/HCPCS: 99214

== ENCOUNTER → 2024-04-03 14:25 | Outpatient (BNVA) | payer OTHER, SELFPAY | PROVIDERS: PCP Nurse Practitioner Family; Visit Provider Internal Medicine Endocrinology, Diabetes & Metabolism | DX: E11.65 Type 2 diabetes mellitus with hyperglycemia (principal); E11.22 Type 2 diabetes mellitus with diabetic chronic kidney disease; N18.32 Chronic kidney disease, stage 3b; E03.8 Other specified hypothyroidism; E06.3 Autoimmune thyroiditis | CPT/HCPCS: 82947 ==

== ENCOUNTER 2024-05-13 09:21 | Outpatient (AMB) | payer OTHER, SELFPAY ==
--- NOTE | 2024-05-13 10:10 | A.OFFVIS_ITS ---
Intake Intake Visit Reasons: DM Senior Software Developer Required: No Accompanied by: Self / Same As Patient Allergies environmental allergies Allergy (Unknown, Verified 04/03/24 14:31) Itching HPI Comprehensive Diabetes Asmnt Most Recent Diabetes Results: Microalb/Creat Ratio 13.6 ug/mg cr 05/19/23 Cholesterol 147 mg/dL (<200) 01/30/24 HDL Cholesterol 36 mg/dL (>40) L 01/30/24 Triglycerides 146 mg/dL (<150) 01/30/24 Creatinine 2.10 mg/dL (0.5-1.4) H 01/30/24 Blood Urea Nitrogen 25 mg/dL (9-16) H 01/30/24 Sodium 142 mmol/L (135-145) 01/30/24 Potassium 4.0 mmol/L (3.3-5.1) 01/30/24 Chloride 108 mmol/L (96-108) 01/30/24 Carbon Dioxide 27 mmol/L (22-29) 01/30/24 Calcium 9.3 mg/dL (8.4-10.2) 01/30/24 AST 21 U/L (5-37) 01/30/24 ALT 25 U/L (0-40) 01/30/24 Total Protein 7.0 g/dL (6.5-8.0) 01/30/24 Albumin 4.2 g/dL (3.5-5.0) 01/30/24 [facility] Medical History YISEL on CPAP Allergic rhinitis COVID-19 virus infection Malaise and fatigue Obesity (BMI 30-39.9) Vitamin D deficiency Dyslipidemia Non-toxic multinodular goiter CKD stage 3 due to type 2 diabetes mellitus Diabetic nephropathy associated with type 2 diabetes mellitus [facility] (current) use of insulin Hypothyroid Diabetes type 2, uncontrolled Surgical History Hx of colonoscopy Hx of coronary angiogram Sutured skin wound Lazy eye Family History Father Diabetes mellitus Diverticulitis Colitis Overweight Kidney problem Mental health disorder Heart disease Mother Diabetes mellitus Thyroid disease History of kidney cancer Liver problem Obese Psoriasis Sleep apnea Brother No problems noted. 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 Cognitive needs: No Hearing needs: No Vision needs: No Assessment & Plan Assessment & Plan (1) Diabetic nephropathy associated with type 2 diabetes mellitus: Code(s): E11.21 - Type 2 diabetes mellitus with diabetic nephropathy Plan: Omnipod 5 with Dexcom G6 The following topics were reviewed today: Patient re-initiated Omnipod 5 insulin delivery For the last 5 days patient has been in auto mode 100% Basal 53% Bolus 47% Average glucose for the past 5 days 158 mg/dL Patient above target 24% Patient at target 74% Patient below target 1% Patient is still experiencing pain with boluses greater than 3-5 units at cannula sites Discussed with patient trialing different insulin to see if it makes a difference, request sent to Dr. Colmenares to write a prescription for Humalog vial Patient also reports occasionally redness at cannula site when he removes pod, suggested to patient to try Flonase or Benadryl cream under pods to see if it is a reaction to adhesive Put pod in areas with fatty tissue Patient understands the basic concepts of pump therapy, how to give insulin for meals and snacks, how to troubleshoot for hyper and hypoglycemia. Setting verified by CDCES, no changes made to insulin pump settings at this visit Basal rate(s) (units/hour) : 12 AM? to 12 AM? 0.75 units / hr Bolus setting Insulin Carbohydrate Ratio (s) 12? to 12 AM?1:4.5 Correction Factor / Sensitivity Factor 12 AM to 12 AM? 1:10 Active Insulin Time:? 4 hours Target(s): 12 AM? to 12 AM 120mg/dL Above 120 mg/dL Patient will follow up with CDE as instructed Patient will contact CDE with questions or concerns, patient given IT number to support in any technical issues related to insulin pump Patient Instructions: Patient will follow-up with adaptive physical educator in 1 month Coding Level of Care Code Est Pt Level 1 (82592) Diagnoses Diabetic nephropathy associated with type 2 diabetes mellitus E11.21
== END 2024-05-13 10:11 | disposition home or self-care (01) ==
PROVIDERS: PCP Nurse Practitioner Family; Visit Provider Registered Nurse Diabetes Educator
DX: E11.21 Type 2 diabetes mellitus with diabetic nephropathy (principal)

== ENCOUNTER → 2024-05-13 09:21 | Outpatient (BNVA) | payer OTHER, SELFPAY | PROVIDERS: PCP Nurse Practitioner Family; Visit Provider Registered Nurse Diabetes Educator | DX: E11.21 Type 2 diabetes mellitus with diabetic nephropathy (principal); E11.22 Type 2 diabetes mellitus with diabetic chronic kidney disease; N18.30 Chronic kidney disease, stage 3 unspecified; Z96.41 Presence of insulin pump (external) (internal) | CPT/HCPCS: 99211 ==

== ENCOUNTER 2024-06-11 07:51 | Outpatient (AMB) | payer OTHER, SELFPAY ==
--- NOTE | 2024-06-11 08:11 | MHC.AMDMED ---
Intake Intake Visit Reasons: 60 MIN Omni Pod/LVM Title Coordinator Required: No Accompanied by: Self / Same As Patient Allergies environmental allergies Allergy (Unknown, Verified 04/03/24 14:31) Itching HPI Comprehensive Diabetes Asmnt Most Recent Diabetes Results: Microalb/Creat Ratio 13.6 ug/mg cr 05/19/23 Cholesterol 147 mg/dL (<200) 01/30/24 HDL Cholesterol 36 mg/dL (>40) L 01/30/24 Triglycerides 146 mg/dL (<150) 01/30/24 Creatinine 2.10 mg/dL (0.5-1.4) H 01/30/24 Blood Urea Nitrogen 25 mg/dL (9-16) H 01/30/24 Sodium 142 mmol/L (135-145) 01/30/24 Potassium 4.0 mmol/L (3.3-5.1) 01/30/24 Chloride 108 mmol/L (96-108) 01/30/24 Carbon Dioxide 27 mmol/L (22-29) 01/30/24 Calcium 9.3 mg/dL (8.4-10.2) 01/30/24 AST 21 U/L (5-37) 01/30/24 ALT 25 U/L (0-40) 01/30/24 Total Protein 7.0 g/dL (6.5-8.0) 01/30/24 Albumin 4.2 g/dL (3.5-5.0) 01/30/24 [facility] Medical History YISEL on CPAP Allergic rhinitis COVID-19 virus infection Malaise and fatigue Obesity (BMI 30-39.9) Vitamin D deficiency Dyslipidemia Non-toxic multinodular goiter CKD stage 3 due to type 2 diabetes mellitus Diabetic nephropathy associated with type 2 diabetes mellitus 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 Cognitive needs: No Hearing needs: No Vision needs: No Assessment & Plan Assessment & Plan (1) Diabetic nephropathy associated with type 2 diabetes mellitus: Code(s): E11.21 - Type 2 diabetes mellitus with diabetic nephropathy Plan: Omnipod 5 with Dexcom G6 The following topics were reviewed today: Patient re-initiated Omnipod 5 insulin delivery Importance bolusing for all carbs Basal 43% Bolus 57% Average glucose for the past 5 days 178 mg/dL Patient above target 42% Patient at target 58% Patient below target 0% Auto mode 100% Patient reports that pain at insulin delivery site has improved since switching from NovoLog to Humalog Reminded patient the importance of entering carbohydrates into pump when eating, patient is putting in corrections after meals when glucose level is already elevated Patient understands the basic concepts of pump therapy, how to give insulin for meals and snacks, how to troubleshoot for hyper and hypoglycemia. Setting verified by CDCES, no changes made to insulin pump settings at this visit Basal rate(s) (units/hour) : 12 AM? to 12 AM? 0.75 units / hr Bolus setting Insulin Carbohydrate Ratio (s) 12? to 12 AM?1:4.5 Correction Factor / Sensitivity Factor 12 AM to 12 AM? 1:10 Active Insulin Time:? 4 hours Target(s): 12 AM? to 12 AM 120mg/dL New 12 AM? to 12 AM 110mg/dL Above 120 mg/dL New Above 110 mg/dL Patient will follow up with CDE as instructed Patient will contact CDE with questions or concerns, patient given IT number to support in any technical issues related to insulin pump Patient Instructions: Patient will follow-up with family life educator in 4 month Coding Level of Care Code Est Pt Level 1 (06148) Diagnoses Diabetic nephropathy associated with type 2 diabetes mellitus E11.21
== END 2024-06-11 08:17 | disposition home or self-care (01) ==
PROVIDERS: PCP Nurse Practitioner Family; Visit Provider Registered Nurse Diabetes Educator
DX: E11.21 Type 2 diabetes mellitus with diabetic nephropathy (principal)

== ENCOUNTER → 2024-06-11 07:51 | Outpatient (BNVA) | payer OTHER, SELFPAY | PROVIDERS: PCP Nurse Practitioner Family; Visit Provider Registered Nurse Diabetes Educator | DX: Z46.81 Encounter for fitting and adjustment of insulin pump (principal); E11.21 Type 2 diabetes mellitus with diabetic nephropathy | CPT/HCPCS: 99211 ==

== ENCOUNTER 2024-07-02 10:49 | Outpatient (AMB) | payer OTHER, SELFPAY ==
--- NOTE | 2024-07-02 10:58 | A.OFFVIS_ITS ---
Vital Signs 07/02/24 11:03 Height 5 ft 6 in Weight 198 lb 6.656 oz BMI 32.0 BP 116/84 Blood Pressure Location Rt brachial Position Sitting Pulse 79 Intake Visit Reasons: T2DM/LVM Intake Note: Patient presents today to re-establish treatment on Type 2 Diabetes Mellitus: Last Diabetic Eye exam: DUE Last Podiatry Exam: Does not see a Research Advisor Most recent HbA1c: 8.9%, 07/02/2024 Random Glucose- 195mg/dL, Today Slope Tender Required: No Accompanied by: Self / Same As Patient Allergies environmental allergies Allergy (Unknown, Verified 07/02/24 11:05) Itching HPI Comments Details: Patient is a 48-year-old male with DM type 2 in setting of CKD stage 3 B who presents for management of diabetes. He is on an Omnipod 5 with Dexcom sensor. He was last seen by Dr. Colmenares in March and by Negrita EDWARDS 3 weeks ago at which time his settings were adjusted. Pump setting was changed to correct glucose to 110. A1C in the office today is 8.9% up from 8% February 2024. 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 DEXCOM sensor [ ] average glucose: [ 174] Glucose Management indicator unable to calculate TIme in range: [9 ] % very high (above 250) 32 % high (181-250) [59] % in range (70-180] [0 ] % low (69-55) 0 % very low (below 54) Pattern shows consistent elevation after lunch and supper he is only entering in 54 carbs per day 1.6 entries Basal insulin 56% 31 units bolus 44% 24.5 units Sleeps late. 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 to 12 AM?1:4.5 Correction Factor / Sensitivity Factor 12 AM to 12 AM? 1:10 Active Insulin Time:? 4 hours Target(s): 12 AM? to 12 AM 110mg/dL PFSH Medical History YISEL on CPAP Allergic rhinitis COVID-19 virus infection Malaise and fatigue Obesity (BMI 30-39.9) Vitamin D deficiency Dyslipidemia Non-toxic multinodular goiter CKD stage 3 due to type 2 diabetes mellitus Diabetic nephropathy associated with type 2 diabetes mellitus jail (current) use of insulin Hypothyroid Diabetes type 2, uncontrolled Surgical History Hx of colonoscopy Hx of coronary angiogram Sutured skin wound Lazy eye Family History Father Diabetes mellitus Diverticulitis Colitis Overweight Kidney problem Mental health disorder Heart disease Mother Diabetes mellitus Thyroid disease History of kidney cancer Liver problem Obese Psoriasis Sleep apnea Brother No problems noted. Paternal Grandmother Mental health disorder Social History Housing: House Alcohol intake: current Alcohol intake frequency: holidays/special occasions only Patient Tobacco Use Status: Never used Tobacco e-Cigarette/Vaping Use: Never Used Second Hand Smoke Exposure: No (not very often ) service: No Current occupational status: employed Current occupation: [employer] Cognitive needs: No Hearing needs: No Vision needs: No Physical Exam Vital Signs: Last Vital Signs Pulse 79 07/02/24 11:03 BP 116/84 07/02/24 11:03 BMI result Body Mass Index 32.0 Const Other: Absence of Cushingoid features. Absence of acromegalic features. Neck exam reveals nl size thyroid about 15 gms. No thyroid nodules palpable. No carotid bruits present. Lungs CTA. Heart S1 S2, Reg R/R. No M/R G. Skin exam reveals absence of vitiligo or acanthosis nigricans. Extrem Other: Visual exam of foot performed. No ulcerations or open lesions. No onchomycosis, no callouses. Sensation intact to monofilament exam. Vibratory sensation is normal with 128 Hz tuning fork. Results AMB Hemoglobin A1c AMB Hemoglobin A1c 8.9 % Last Edit by DIPIKA Mello on 07/02/24 11:21 Results Reviewed Results Reviewed: Laboratory Last Values Glucose (Clinic) 195 mg/dL (60-115) H 07/02/24 11:09 Hgb A1c (Clinic) 8.9 % (4.0-6.0) H 07/02/24 11:18 Laboratory Tests 01/19/23 05/19/23 05/19/23 09:31 10:34 10:40 Plt Count Potassium BUN Creatinine 2.32 H 2.52 H Estimated GFR 31 28 Hgb A1c (Clinic) Calcium AST ALT Triglycerides Cholesterol LDL Cholesterol, Calc HDL Cholesterol TSH Urine Creatinine 51.14 Urine Microalbumin 7.0 Microalb/Creat Ratio 13.6 05/24/23 08/01/23 10/29/23 09:40 10:12 11:32 Plt Count Potassium BUN Creatinine Estimated GFR Hgb A1c (Clinic) 9.0 H 8.6 H 8.7 H Calcium AST ALT Triglycerides Cholesterol LDL Cholesterol, Calc HDL Cholesterol TSH Urine Creatinine Urine Microalbumin Microalb/Creat Ratio 01/30/24 02/07/24 13:00 09:39 Plt Count 193 Potassium 4.0 BUN 25 H Creatinine 2.10 H Estimated GFR 34 Hgb A1c (Clinic) 8.0 H Calcium 9.3 AST 21 ALT 25 Triglycerides 146 Cholesterol 147 LDL Cholesterol, Calc 82 HDL Cholesterol 36 L TSH 1.83 Urine Creatinine Urine Microalbumin Microalb/Creat Ratio Assessment & Plan Assessment & Plan (1) Diabetes type 2, uncontrolled: Code(s): E11.65 - Type 2 diabetes mellitus with hyperglycemia Category: Medical Qualifiers: Glycemic state: with hyperglycemia Qualified Code(s): E11.65 - Type 2 diabetes mellitus with hyperglycemia Plan: 49-year-old type 2 diabetic with CKD on an insulin pump. A1c today in the office is 8.9% last 2 weeks of sensor shows an average of 174. He is only entering in 54 carbs per day and at times is taking himself off the pump and not covering with Lantus insulin. We spent some time going over site selection in other sites that he could use. Was recently switched to Humalog insulin and finds that he is getting less stinging with this. He was advised to try to stick with the pump 100% of the time but that if he does come off for a day he needs to cover with 22 units of Lantus and Humalog for each meal. He has agreed to enter in all carbohydrates and return in 4 weeks' time. If he develops hypoglycemia postprandial he will alter his insulin carb ratio from 1: 4.5 to 1: 5.5. Today in the office we practiced changing the insulin to carb ratio and also the use of temporary basal. I sent off a prescription for ketone test strips and he has supplies for backup insulin. Orders: Orders AMB Hemoglobin A1c Today E11.65 - Type 2 diabetes mellitus with hyperglycemia Medications: New acetone (urine) test (Ketone Urine Test strips) As directed glucose over 250, illness 25 ea 1RF Patient Instructions: The patient was counseled to achieve a target A1C of 7% (154 avg). Fasting blood sugars should be 90-130 in the morning and less than 180 two hours after meals. Reviewed the relationship between poor diabetic control and the developement of complications The patient was counseled to always carry a source of sugar and on the rule of 15's: Take 3 glucose tablets and repeat again in 15 minutes if blood sugar is not in normal range. Continue to repeat every 15 minutes until blood sugar is normal. Symptoms of DKA were reviewed: early: frequent urination, dry mouth, fatigue, feeling ill, severe symptoms: ketones in the urine, abdominal pain, nausea, vomiting and weakness. It is important to hydrate with sugar free liquids every 30 minutes and bring the sugars down to normal levels. High glucose protocol. Coding Level of Care Code Est Pt Level 5 (67187) Diagnoses Uncontrolled type 2 diabetes mellitus with hyperglycemia E11.65 Glycemic state: with hyperglycemia Time Spent (min) 45 Comment Time spent reviewing labs/provider notes, sensor/pump reports, face to face, chart doc
[2024-07-02 11:03] VITALS: BP 116/84; PULSE 79; BMI 32.0
[2024-07-02 11:13] LABS: Glucose, Whole Blood 195 mg/dL (60-115)
== END 2024-07-02 11:49 | disposition home or self-care (01) ==
PROVIDERS: PCP Nurse Practitioner Family; Visit Provider Nurse Practitioner Adult Health
DX: E11.65 Type 2 diabetes mellitus with hyperglycemia (principal)
CPT/HCPCS: 99215

== ENCOUNTER → 2024-07-02 10:49 | Outpatient (BNVA) | payer OTHER, SELFPAY | PROVIDERS: PCP Nurse Practitioner Family; Visit Provider Nurse Practitioner Adult Health | DX: E11.65 Type 2 diabetes mellitus with hyperglycemia (principal); E11.22 Type 2 diabetes mellitus with diabetic chronic kidney disease; N18.32 Chronic kidney disease, stage 3b | CPT/HCPCS: 82947; 83036 ==

== ENCOUNTER 2024-08-12 10:53 | Outpatient (AMB) | payer OTHER, SELFPAY ==
--- NOTE | 2024-08-12 09:51 | A.OFFVIS_ITS ---
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 He is on an Omnipod 5 with Dexcom sensor. He was last seen by Dr. Colmenares in March, by Negrita EDWARDS end of May and by myself in June at which time his settings were adjusted to give more pre prandial insulin. A1C in the office was 8.9% on 07/02/24. He does forget to cover snacks at time at work. He has had some irritation with his dexcom sensor site. He is now trying new sites above belt line and is trying skintech to present the skin. 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 Sleeps late. 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 Menendez setting Insulin Carbohydrate Ratio (s) 12? to 12 AM?1:4.5 Correction Factor / Sensitivity Factor 12 AM to 12 AM? 1:10 Active Insulin Time:? 4 hours Target(s): 12 AM? to 12 AM 110mg/dL Sleeps late. 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 - CDE education: Dental exam: this yr Ophthalmology evaluation: last APPT - needs to make appt Other specialists: Public Records Researcher needs to make appointment he is on an ARB eGFR 34 02/09 [facility] Medical History (Updated 07/09/24 @ 18:24 by Broderick Power, [facility]) Diabetic retinopathy YISEL on CPAP Allergic rhinitis COVID-19 virus infection Malaise and fatigue Obesity (BMI 30-39.9) Vitamin D deficiency Dyslipidemia Non-toxic multinodular goiter CKD stage 3 due to type 2 diabetes mellitus Diabetic nephropathy associated with type 2 diabetes mellitus manager long term care (current) use of insulin Hypothyroid Diabetes type 2, uncontrolled Surgical History Hx of colonoscopy Hx of coronary angiogram Sutured skin wound Lazy eye Family History Father Diabetes mellitus Diverticulitis Colitis Overweight Kidney problem Mental health disorder Heart disease Mother Diabetes mellitus Thyroid disease History of kidney cancer Liver problem Obese Psoriasis Sleep apnea Brother No problems noted. Paternal Grandmother Mental health disorder Social History Housing: House Alcohol intake: current Alcohol intake frequency: holidays/special occasions only Patient Tobacco Use Status: Never used Tobacco e-Cigarette/Vaping Use: Never Used Second Hand Smoke Exposure: No (not very often ) service: No Current occupational status: employed Current occupation: [employer] Cognitive needs: No Hearing needs: No Vision needs: No Physical Exam Vital Signs: Last Vital Signs Pulse 68 08/12/24 11:04 BP 122/78 08/12/24 11:04 BMI result Body Mass Index 32.0 Const Other: Absence of Cushingoid features. Absence of acromegalic features. Neck exam reveals nl size thyroid about 15 gms. No thyroid nodules palpable. No carotid bruits present. Lungs CTA. Heart S1 S2, Reg R/R. No M/R G. Skin exam reveals absence of vitiligo or acanthosis nigricans. No edema Visual exam of foot performed. No ulcerations or open lesions. No inter digit maceration or fissuring. No onychomycosis, no callouses. Sensation intact to monofilament exam. Vibratory sensation is normal with 128 Hz tuning fork. Office Procedures Glucose Monitoring Details Details: see [facility] [id number] - Glucose monitoring, continuous-physician I&R Procedure code (CPT) selection complete Results Reviewed Results Reviewed: Laboratory Last Values Glucose (Clinic) 134 mg/dL (60-115) H 08/12/24 11:07 Laboratory Tests 05/19/23 10/29/23 01/30/24 10:40 11:32 13:00 Creatinine 2.10 H Estimated GFR 34 Hgb A1c (Clinic) 8.7 H AST 21 ALT 25 Triglycerides 146 Cholesterol 147 LDL Cholesterol, Calc 82 HDL Cholesterol 36 L TSH 1.83 Urine Creatinine 51.14 Urine Microalbumin 7.0 Microalb/Creat Ratio 13.6 02/07/24 07/02/24 09:39 11:18 Creatinine Estimated GFR Hgb A1c (Clinic) 8.0 H 8.9 H AST ALT Triglycerides Cholesterol LDL Cholesterol, Calc HDL Cholesterol TSH Urine Creatinine Urine Microalbumin Microalb/Creat Ratio Assessment & Plan Assessment & Plan (1) Diabetes type 2, uncontrolled: Code(s): E11.65 - Type 2 diabetes mellitus with hyperglycemia Category: Medical Qualifiers: Glycemic state: with hyperglycemia Qualified Code(s): E11.65 - Type 2 diabetes mellitus with hyperglycemia Plan: Type 2 diabetic with microvascular/macrovascular complications of nephropathy with EGFR 34 01/2024 on an insulin pump in [facility]. His most recent A1c was 8.9% on 07/02/24 at which time his insulin pump was adjusted. Since that time: Orders: Orders B Type Natriuretic Peptide Today E11.65 - Type 2 diabetes mellitus with hyperglycemia AMB Glucose Monitoring Today E11.65 - Type 2 diabetes mellitus with hyperglycemia Coding Level of Care Code Est Pt Level 4 (13972) Complex EM visit Add On G2211 Diagnoses Uncontrolled type 2 diabetes mellitus with hyperglycemia E11.65 Glycemic state: with hyperglycemia CPT Codes Details - CPT: 40391 - Glucose monitoring, continuous-physician I&R ([id number])
[2024-08-12 11:04] VITALS: BP 122/78; PULSE 68; BMI 32.0
[2024-08-12 11:11] LABS: Glucose, Whole Blood 134 mg/dL (60-115)
== END 2024-08-12 11:39 | disposition home or self-care (01) ==
PROVIDERS: PCP Nurse Practitioner Family; Visit Provider Nurse Practitioner Adult Health
DX: E11.65 Type 2 diabetes mellitus with hyperglycemia (principal)
CPT/HCPCS: 95251; 99214

== ENCOUNTER → 2024-08-12 10:53 | Outpatient (BNVA) | payer OTHER, SELFPAY | PROVIDERS: PCP Nurse Practitioner Family; Visit Provider Nurse Practitioner Adult Health | DX: E11.65 Type 2 diabetes mellitus with hyperglycemia (principal); E11.22 Type 2 diabetes mellitus with diabetic chronic kidney disease; N18.32 Chronic kidney disease, stage 3b | CPT/HCPCS: 82947 ==

== ENCOUNTER 2024-09-24 09:51 | Outpatient (REF) | payer OTHER, SELFPAY ==
[2024-09-24 13:14] LABS: MANUAL DIFF FLAG NO
[2024-09-24 13:20] LABS: Appearance Urine Clear; Color Urine Yellow; Glucose Urine UA >=1000 mg/dL (Negative); Leukocyte Esterase Urine Negative (Negative); Nitrite Urine Negative (Negative); UMIC TRIGGER UACC YES; Urine Blood Negative (Negative); Urine Ketones Negative (Negative); Urine Protein Negative (Neg-Trace)
[2024-09-24 13:25] LABS: Bacteria Urine None Seen (None Seen); Hyaline Casts Urine 0-2 /LPF (0-2); RBC Urine 0-2 /HPF (0-2); Squamous Epithelial Cell Urine 0-2 /HPF (0-2); WBC Urine 0-5 /HPF (0-5)
[2024-09-24 13:27] LABS: Basophils Percent Auto 0.2 % (0-2); Eosinophils Absolute Auto 0.2 X10*3/uL (0.0-0.4); Eosinophils Percent Auto 1.8 % (0-4); Hematocrit 49.1 % (42.0-52.0); Hemoglobin 16.2 g/dl (14.0-18.0); Imm Gran Abs Auto 0.04 X10*3/uL (0.00-0.03); Imm Gran Pct Auto 0.5 % (0.0-0.4); Lymphocytes Absolute Auto 2.3 X10*3/uL (1.2-4.9); Lymphocytes Percent Auto 28.1 % (20-40); Mean Corpuscular Hemoglobin 30.1 pg (27.0-33.0); Mean Corpuscular Volume 91.1 fL (80.0-98.0); Monocytes Absolute Auto 0.7 X10*3/uL (0.1-1.2); Monocytes Percent Auto 8.9 % (2-11); Neutrophils Absolute Auto 5.1 x10*3/uL (2.0-8.3); Neutrophils Percent Auto 60.5 % (45-73); Platelet Count 223 X10*3/uL (160-400); Red Blood Count 5.39 X10*6/uL (4.60-5.80); Red Cell Distribution Width 14.1 % (11.0-16.0); White Blood Count 8.3 X10*3/uL (4.8-10.8)
[2024-09-24 13:39] LABS: B Type Natriuretic Peptide 14 pg/mL (<100)
[2024-09-24 13:56] LABS: Alanine Aminotransferase 33 U/L (0-40); Albumin Level 3.9 g/dL (3.5-5.0); Alkaline Phosphatase 88 U/L (39-117); Anion Gap 13 (12-20); Aspartate Amino Transferase 30 U/L (5-37); Bilirubin Total 0.3 mg/dL (0.0-1.0); Blood Urea Nitrogen 41 mg/dL (9-16); Calcium 8.9 mg/dL (8.4-10.2); Carbon Dioxide 22 mmol/L (22-29); Chloride 107 mmol/L (96-108); Cholesterol 207 mg/dL (<200); Estimated Glomerular Filt Rate 37; Glucose Fasting 191 mg/dL (60-99); HDL Cholesterol 54 mg/dL (>40); LDL Cholesterol Calculated 125 mg/dL (<100); Potassium 4.4 mmol/L (3.3-5.1); Sodium 138 mmol/L (135-145); Total Protein 6.9 g/dL (6.5-8.0); Triglycerides 143 mg/dL (<150)
[2024-09-24 14:09] LABS: Creatinine Urine 37.92 mg/dL; Microalbum/Creatinine Ratio Ur 23.7 ug/mg cr (<30)
[2024-09-24 14:13] LABS: TSH reflex Free T4 1.02 uIU/mL (0.32-4.0)
== END 2024-09-24 09:52 | disposition home or self-care (01) ==
LOC: HO.HMGCLDS 09:51
PROVIDERS: Nurse Practitioner Adult Health; PCP Nurse Practitioner Family; Visit Provider Nurse Practitioner Family
DX: I10 Essential (primary) hypertension (principal); E11.65 Type 2 diabetes mellitus with hyperglycemia
CPT/HCPCS: 36415; 80053; 80061; 81001; 82043; 82570; 83880; 84443; 85025

== ENCOUNTER 2024-10-08 08:04 | Outpatient (AMB) | payer OTHER, SELFPAY ==
--- NOTE | 2024-10-08 08:11 | MHC.OFFVIS ---
Vital Signs 10/08/24 08:12 Height 5 ft 6 in Weight 198 lb BMI 32.0 Intake Visit Reasons: 1 yr f/u -Sleep deprivation Intake Note: Patient presents for 1 year sleep deprivation Allergies environmental allergies Allergy (Unknown, Verified 10/08/24 08:13) Itching lumgivey Allergy (Intermediate, Uncoded 10/08/24 08:13) Itching Medication List - Last Reconciled 10/08/24 by Sherly Ambriz PA-C acetone (urine) test (Ketone Urine Test strips) As directed glucose over 250, illness albuterol sulfate 90 mcg/actuation 2 puffs inhalation ONCE PRN atorvastatin 20 mg (1/2 x 40 mg) PO DAILY 90 days blood-glucose meter,continuous (Dexcom G6 Photography Teacher) As directed blood-glucose sensor (Dexcom G6 Sensor device) As directed blood-glucose transmitter (Dexcom G6 Transmitter device) As directed calcitriol 0.25 mcg PO Q OTHER DAY cetirizine (Zyrtec) 10 mg PO DAILY PRN cholecalciferol (vitamin D3) 125 mcg PO DAILY citalopram 20 mg PO DAILY 90 days dapagliflozin propanediol (Farxiga) 10 mg PO DAILY insulin lispro (Humalog U-100 Insulin) infuse up to 75 units per day via insulin pump subcutaneously; insulin pump cart,auto,BT-cntr (Omnipod 5 G6 Intro Kit (Gen 5) subcutaneous cartridge with controller) As directed insulin pump cart,automated,BT (Omnipod 5 G6 Pods (Gen 5) subcutaneous cartridge) CHANGE POD EVERY 48 HOURS levothyroxine 112 mcg PO QAM 90 days losartan 50 mg (2 x 25 mg) PO DAILY metoprolol succinate ER (Toprol XL) 25 mg PO DAILY 90 days sumatriptan succinate (Imitrex) Take 1 tab at onset of headache; if no relief may repeat 1 tab after at least 2 hrs; max = 3 tabs/24 hr PO HPI Comments Details: 47 y/o male patient presents for follow up of YISEL on CPAP. The home sleep study result was significant for mild to moderate degree of sleep apnea. The total AHI was 2.9/hr and oxygen rashmi was 82%. The average O2 sat was 94%, and O2 sat below 88% for 2 min. Pt started APAP [id number]. The CPAP compliance and therapy response (09/08/24-10/07/24) reviewed. The usage days 23% and the average usage hours 2 hrs 9 min. The max pressure was 38.7 and AHI was 2.9/hr. Pt reports better quality sleep, when he is able to tolerate the CPAP mask, he wakes up refreshed and has lots of energy during daytime.He continues to have excessive daytime sleepiness. He is hyper-focused most nights about his breathing with the mask on, he will adjust his pressures and try the mask again after trimming his muller as the mask leaks due to the overgrown muller. Stressed compliance, with the mask on he feels like he is breathing heavier and once he is calmer he falls asleep. Denies parasomnias, does talk in sleep, he does snore. He has the urge to move legs, especially the knee, 2-3 times per week, denies numbness or tingling, pins needles, cramps. Patient education about Inspire Therapy, as he may a good candidate. He cleans the mask, changes out filters, fills the reservoir with distilled water. 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 Paternal Grandmother Mental health disorder Social History Housing: House Alcohol intake: current Alcohol intake frequency: holidays/special occasions only Patient Tobacco Use Status: Never used Tobacco e-Cigarette/Vaping Use: Never Used Second Hand Smoke Exposure: No (not very often ) service: No Current occupational status: employed Current occupation: [employer] Cognitive needs: No Hearing needs: No Vision needs: No Review of Systems Const All systems reviewed & are unremarkable except as noted in HPI and below Eyes Details: Surgery for Extropia, lazy eyes. Physical Exam Vital Signs: BMI result Body Mass Index 32.0 Const General: cooperative, comfortable and no acute distress Nutritional Appearance: overweight Orientation/consciousness: patient oriented x3 HEENT Face and sinus: Yes face symmetric Eyes General: appearance normal, both eyes and all related structures Pupils: Equal, round and reactive pupils present, Pupils normal by confrontation and Pupil accommodation reflex normal Neck Neck: Yes full ROM and Yes supple Resp Effort & Inspection: normal respiratory effort and able to speak in complete sentences Neuro General: patient oriented x3, moves all extremities and Normal light touch and pain sensation Cranial nerves: Yes CN's II-XII intact bilaterally, Yes Facial sensation intact/muscles of mastication intact, Yes Equal, round and reactive pupils present, Yes Normal accommodation reflex present, Yes Bilaterally intact EOM present, Yes Normal facial strength present, Yes Midline tongue present, Yes Symmetric palate elevation present, Yes Ability to bilaterally rotate head present and Yes Ability to bilaterally elevate shoulders present Gait exam (Neuro): Normal gait present Motor exam (neuro): 5/5 motor strength present throughout and Normal motor muscle tone present throughout Coordination: [id number] test normal Assessment & Plan Assessment & Plan (1) YISEL on CPAP: Comment: Mild to moderate degree of sleep apnea. The AHI was 15/hr and oxygen rashmi was 82%. The patient has been started on CPAP therapy and he is being followed by the Sleep Medicine Service. Code(s): G47.33 - Obstructive sleep apnea (adult) (pediatric); Z99.89 - Dependence on other enabling machines and devices Category: Medical (2) Daytime sleepiness: Code(s): R40.0 - Somnolence Category: Medical Plan -Continue to use CPAP as patient experiences good clinical effects, better quality sleep and daytime sleepiness has improved when he does use the CPAP. -Pressures can be adjusted by calling regional home care and having them change the pressures or adjusting the pressures on your machine. He refuses mask fitting at this time, and will trim muller to see if he gets a better fit. Stressed compliance, use CPAP nightly and more than 4 hours at the minimum, would encourage as many hours as tolerable. -Discussed Inspire Therapy with patient as he is having difficulty with the mask and use of machine nightly, will follow up in 3 months to assess sleep and send for ENT consult if patient is interested in the Inspire Technology to improve sleep. -Clean mask and tubing regularly. Coding Level of Care Code Est Pt Level 3 (11450) Diagnoses YISEL on CPAP G47.33; Z99.89 Daytime sleepiness R40.0
[2024-10-08 08:12] VITALS: BMI 32.0
== END 2024-10-08 08:49 | disposition home or self-care (01) ==
PROVIDERS: Absent Provider Psychiatry & Neurology Neurology; PCP Nurse Practitioner Family; Visit Provider Physician Assistant Medical
DX: G47.33 Obstructive sleep apnea (adult) (pediatric) (principal); Z99.89 Dependence on other enabling machines and devices; R40.0 Somnolence
CPT/HCPCS: 99213

== ENCOUNTER → 2024-10-08 08:04 | Outpatient (BNVA) | payer OTHER, SELFPAY | PROVIDERS: Absent Provider Psychiatry & Neurology Neurology; PCP Nurse Practitioner Family; Visit Provider Physician Assistant Medical ==

== ENCOUNTER 2024-10-09 09:29 | Outpatient (AMB) | payer OTHER, SELFPAY ==
--- NOTE | 2024-10-09 09:47 | A.OFFVIS_ITS ---
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 Required: No Accompanied by: Self / Same As Patient Allergies environmental allergies Allergy (Unknown, Verified 10/08/24 08:13) Itching lumgivey Allergy (Intermediate, Uncoded 10/08/24 08:13) Itching HPI Comprehensive Diabetes Asmnt Most Recent Diabetes Results: Microalb/Creat Ratio 23.7 ug/mg cr (<30) 09/24/24 Cholesterol 207 mg/dL (<200) H 09/24/24 HDL Cholesterol 54 mg/dL (>40) 09/24/24 Triglycerides 143 mg/dL (<150) 09/24/24 Creatinine 1.96 mg/dL (0.5-1.4) H 09/24/24 Blood Urea Nitrogen 41 mg/dL (9-16) H 09/24/24 Sodium 138 mmol/L (135-145) 09/24/24 Potassium 4.4 mmol/L (3.3-5.1) 09/24/24 Chloride 107 mmol/L (96-108) 09/24/24 Carbon Dioxide 22 mmol/L (22-29) 09/24/24 Calcium 8.9 mg/dL (8.4-10.2) 09/24/24 AST 30 U/L (5-37) 09/24/24 ALT 33 U/L (0-40) 09/24/24 Total Protein 6.9 g/dL (6.5-8.0) 09/24/24 Albumin 3.9 g/dL (3.5-5.0) 09/24/24 [facility] Medical History Diabetic retinopathy YISEL on CPAP Allergic rhinitis COVID-19 virus infection Malaise and fatigue Obesity (BMI 30-39.9) Vitamin D deficiency Dyslipidemia Non-toxic multinodular goiter CKD stage 3 due to type 2 diabetes mellitus Diabetic nephropathy associated with type 2 diabetes mellitus half-way (current) use of insulin Hypothyroid Diabetes type 2, uncontrolled Surgical History Hx of colonoscopy Hx of coronary angiogram Sutured skin wound Lazy eye Family History Father Diabetes mellitus Diverticulitis Colitis Overweight Kidney problem Mental health disorder Heart disease Mother Diabetes mellitus Thyroid disease History of kidney cancer Liver problem Obese Psoriasis Sleep apnea Brother No problems noted. Paternal Grandmother Mental health disorder Social History Housing: House Alcohol intake: current Alcohol intake frequency: holidays/special occasions only Patient Tobacco Use Status: Never used Tobacco e-Cigarette/Vaping Use: Never Used Second Hand Smoke Exposure: No (not very often ) service: No Current occupational status: employed Current occupation: [employer] Cognitive needs: No Hearing needs: No Vision needs: No Assessment & Plan Assessment & Plan (1) Diabetes type 2, uncontrolled: Code(s): E11.65 - Type 2 diabetes mellitus with hyperglycemia Qualifiers: Glycemic state: with hyperglycemia Qualified Code(s): E11.65 - Type 2 diabetes mellitus with hyperglycemia Plan: Omnipod 5 with Dexcom G6 The following topics were reviewed today: Transitioning from Dexcom G6 to Dexcom G7 Basal 61% Bolus 39% Average glucose for the past 5 days 163 mg/dL Patient above target 33% Patient at target 67% Patient below target 0% Auto mode 100% Patient has been off pump for several weeks, while he had COVID, resumed insulin pump therapy approximately 2 days ago Patient reports he does have ketone strips at home, had but has not been testing Insulin backup plan gave to patient while he is off pump Patient is overdue for A1c message sent to FIELD HUMAN RESOURCES MANAGER to enter order for A1c, he is not seen PCP till 11/18/2024 His next appointment with Endocrine FIELD HUMAN RESOURCES MANAGER is not until 11/25/2024 Troubleshooting after starting new pod or inserting new insulin set: Occlusion, adhesive tape sensitivity, redness Check BG 2 hours after site change Safety information: Importance of a backup plan, for manual injections, proper prescriptions and emergency supplies ketone strips, and rules for testing for ketones Setting verified by CDCES, no changes made to insulin pump settings at this visit Basal rate(s) (units/hour) : 12 AM? to 12 AM? 0.75 units / hr Bolus setting Insulin Carbohydrate Ratio (s) 12? to 12 AM?1:4.5 Correction Factor / Sensitivity Factor 12 AM to 12 AM? 1:10 Active Insulin Time:? 4 hours Target(s): 12 AM? to 12 AM 110mg/dL Above 110 mg/dL Patient will follow up with CDE as instructed, if patient's A1c has improved from the 8.9% in 07/08/2024, patient will follow-up with clinical informatics educator in 4 months. If A1c is still elevated patient instructed to move appointment up with clinical informatics educator for review of glucose numbers Patient will contact CDE with questions or concerns, patient given IT number to support in any technical issues related to insulin pump Patient Instructions: DIABETES PROBLEMS HOMECARE INSTRUCTIONS? for High Blood Sugar and When to Test for Ketones Hyperglycemia is the technical term for high blood glucose (blood sugar). High blood sugar happens when the body has too little insulin or when the body can't use insulin properly. What causes hyperglycemia? A number of things can cause hyperglycemia: * If you have type 1, you may not have given yourself enough insulin. ? If you have type 2, your body may have enough insulin, but it is not as effective as it should be. * You ate more than planned or exercised less than planned. * You have stress from an illness, such as a cold or flu. * You have other stress, such as family conflicts or school or dating problems. How to lower your blood sugar level. ? Take medications as directed by physician. ? Drink extra water or noncaffeinated, nonsugared drinks to prevented hydration. ? Exercise if you are not sick However, if your blood sugar is above 250 mg/dl, check your urine for ketones. If you have ketones, do not exercise Exercising when ketones are present may make your blood sugar level go even higher. You'll need to work with your doctor to find the safest way for you to lower your blood sugar level. Regularly check blood sugar or urine for sugar and acetone during illness. Diabetic ketoacidosis (DKA) Is serious condition that can lead to diabetic coma (passing out for a long time) or even . When your cells don't get the glucose they need for energy, your body begins to burn fat for energy, which produces ketones. Ketones are chemicals that the body creates when it breaks down fat to use for energy. The body does this when it doesn?t have enough insulin to use glucose, the body?s normal source of energy. When ketones build up in the blood, they make it more acidic. They are a warning sign that your diabetes is out of control or that you are getting sick. Symptoms of Diabetic Ketoacidosis (DKA) ? DKA usually develops slowly. But when vomiting occurs, this life- threatening condition can develop in a few hours. Early symptoms include the following: ? Thirst or a very dry mouth ? Frequent urination ? High blood glucose (blood sugar) levels ? High levels of ketones in the urine ? Then, other symptoms appear: ? Constantly feeling tired ? Dry or flushed skin ? Nausea, vomiting, or abdominal pain ? (Vomiting can be caused by many illnesses, not just ketoacidosis. If vomiting continues for more than 2 hours, contact your health care provider.) ? Difficulty breathing ? Fruity odor on breath ? A hard time paying attention, or confusion When should you test for ketones? It is advisable to check for ketones under the following conditions when: Your blood glucose is higher than 250mg/dl. Feeling nauseated, throwing up, or have pains in your abdominal region. Have a cold or flu. Have general body fatigue. Feel thirsty or have a very dry mouth. Have flushed skin. Have a fruity breath or a hard time breathing. You feel perplexed or in fog. How to Test Urine for Ketones You can detect ketones with a simple urine test using a test strip, similar to a blood testing strip. Ask your health care provider when and how you should test for ketones. Many experts advise to check your urine for ketones when your blood glucose is more than 250 mg/dl. When you are ill (when you have a cold or the flu, for example), check for ketones every 4 to 6 hours. And check every 4 to 6 hours when your blood sugar is more than 250 mg/dl. Also, check for ketones when you have any symptoms of DKA. How to lower your blood sugar level. ? Take medications as directed by physician. ? Drink extra water or noncaffeinated, nonsugared drinks to prevented hydration. ? Exercise if you are not sick However, if your blood sugar is above 250 mg/dl, check your urine for ketones. If you have ketones, do not exercise Exercising when ketones are present may make your blood sugar level go even higher. You'll need to work with your doctor to find the safest way for you to lower your blood sugar level. Regularly check blood sugar or urine for sugar and acetone during illness Coding Level of Care Code Est Pt Level 1 (18063) Diagnoses Uncontrolled type 2 diabetes mellitus with hyperglycemia E11.65 Glycemic state: with hyperglycemia
== END 2024-10-09 09:57 | disposition home or self-care (01) ==
PROVIDERS: PCP Nurse Practitioner Family; Visit Provider Registered Nurse Diabetes Educator
DX: E11.65 Type 2 diabetes mellitus with hyperglycemia (principal)

== ENCOUNTER → 2024-10-09 09:29 | Outpatient (BNVA) | payer OTHER, SELFPAY | PROVIDERS: PCP Nurse Practitioner Family; Visit Provider Registered Nurse Diabetes Educator | DX: E11.65 Type 2 diabetes mellitus with hyperglycemia (principal); Z96.41 Presence of insulin pump (external) (internal) | CPT/HCPCS: 99211 ==

== ENCOUNTER 2024-12-11 08:48 | Outpatient (AMB) | payer BC, SELFPAY ==
--- NOTE | 2024-12-11 07:26 | A.OFFVIS_ITS ---
Vital Signs 12/11/24 08:52 Height 5 ft 6 in Weight 198 lb 6.656 oz BMI 32.0 BP 112/78 Blood Pressure Location Rt brachial Position Sitting Pulse 82 Pulse Source Pulse Oximeter Intake Visit Reasons: T2DM Intake Note: Patient presents today for a follow-up on Type 2 Diabetes Mellitus: Last Diabetic Eye exam: 07/09/2024, [facility] Last Podiatry Exam: Does not see a Outcomes Analyst Most recent HbA1c: 8.6%, 12/11/2024 Random Glucose- 224 mg/dL, Today Care Information Associate Required: No Accompanied by: Self / Same As Patient Allergies environmental allergies Allergy (Unknown, Verified 12/11/24 08:52) Itching lumgivey Allergy (Intermediate, Uncoded 12/11/24 08:52) Itching Medication List - Last Reconciled 12/11/24 by Zamzam Dennis NP acetone (urine) test (Ketone Urine Test strips) As directed glucose over 250, illness albuterol sulfate 90 mcg/actuation 2 puffs inhalation ONCE PRN blood-glucose meter,continuous (Dexcom G6 Sprinkler Fitter Helper) As directed blood-glucose sensor (Dexcom G6 Sensor device) continous use apply new sensor every 10 days blood-glucose transmitter (Dexcom G6 Transmitter device) for use with sensors chnage every 3 months calcitriol 0.25 mcg PO Q OTHER DAY cetirizine (Zyrtec) 10 mg PO DAILY PRN cholecalciferol (vitamin D3) 125 mcg PO DAILY citalopram 20 mg PO DAILY 90 days dapagliflozin propanediol (Farxiga) 10 mg PO DAILY insulin lispro (Humalog U-100 Insulin) infuse up to 75 units per day via insulin pump subcutaneously; insulin pump cart,auto,BT,G6/7 (Omnipod 5 G6-G7 Pods (Gen 5) subcutaneous cartridge) For continuous use. Change pods every 2 days. 45 pods in total insulin pump cart,auto,BT-cntr (Omnipod 5 G6 Intro Kit (Gen 5) subcutaneous cartridge with controller) As directed levothyroxine 112 mcg PO QAM 90 days losartan 50 mg (2 x 25 mg) PO DAILY metoprolol succinate ER (Toprol XL) 25 mg PO DAILY 90 days ondansetron 8 mg PO Q12H PRN 7 days pravastatin 10 mg PO BEDTIME 90 days sumatriptan succinate (Imitrex) Take 1 tab at onset of headache; if no relief may repeat 1 tab after at least 2 hrs; max = 3 tabs/24 hr PO HPI Comments Details: Patient is a 49-year-old male with DM type 2 in setting of CKD stage 3 B who presents for management of diabetes. He is on an Omnipod 5 with Dexcom sensor. He was last seen by myself in July at which time his pump was adjusted to give him more pre-prandial insulin at lunch and by Negrita Velásquez CDE in September. A1C 12/11/2024 8.6%, 8.9% on 07/02/24. He reports he had elevated readings in October while [place] a cruise ship. He had brought all of his supplies but did not realize his transmitter would while he was on vacation and had difficulty managing his sugars during this timeframe. Dexcom average glucose: 201 14 day continuous glucose monitor report reviewed Glucose Managment indicator 8.1 % Days with CGM data 23 % TIme in ranges: 23 % very high (above 250) 435% high ?(181-250) Forty-two % in range ?(70-180] 0% low (69-55) [Less than 1 ] % ?very low (below 54) [66 ] Standard Deviation Interpretation [ baseline is 40-60 points higher than target. He is not correcting pre meal until he rises which is contributing to postprandial hyperglycemia] Micro and macrovascular complications: Nephropathy Had prior problems with lumgivey Diabetes medications: Omnipod 5 also Farxiga 10 mg q.d. Sleeps late. 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 Menendez Cardiology: He will schedule follow up. Has been inconsistent with a statin as he has back pain with atorvastatin. He does take Co Q10 but this does not always work. He reports he was previously on pravastatin and did well with this but was not taking consistently in his LDL was not at target. He would like to try this again. Insulin Carbohydrate Ratio (s) 12? to 12 AM?1:4.5 Correction Factor / Sensitivity Factor 12 AM to 12 AM? 1:10 Active Insulin Time:? 4 hours Target(s): 12 AM? to 12 AM 110mg/dL Sleeps late. 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 Symptoms reported: denies numbness, tingling, cramping in lower extremities Hypoglycemia: very infrequent Hyperglycemia: + urinary frequency, Hypothyroidism: euthroid with TSH in good range on current dose of:levothyroxine 112mcg Has HLD on statin last LDL 82 02/09 Second Watch Sergeant - CDE education: Dental exam: this yr Ophthalmology evaluation: last APPT - needs to make appt Other specialists: Cut Lace Machine Operator needs to make appointment he is on an ARB eGFR 34 02/09 PENDING SALE TO [facility] Medical History (Updated 12/11/24 @ 09:49 by Zamzam Dennis NP) Dyslipidemia Diabetic retinopathy YISEL on CPAP Allergic rhinitis COVID-19 virus infection Malaise and fatigue Obesity (BMI 30-39.9) Vitamin D deficiency Dyslipidemia Non-toxic multinodular goiter CKD stage 3 due to type 2 diabetes mellitus Diabetic nephropathy associated with type 2 diabetes mellitus residential (current) use of insulin Hypothyroid Diabetes type 2, uncontrolled Surgical History Hx of colonoscopy Hx of coronary angiogram Sutured skin wound Lazy eye Family History Father Diabetes mellitus Diverticulitis Colitis Overweight Kidney problem Mental health disorder Heart disease Mother Diabetes mellitus Thyroid disease History of kidney cancer Liver problem Obese Psoriasis Sleep apnea Brother No problems noted. Paternal Grandmother Mental health disorder Social History Housing: House Alcohol intake: current Alcohol intake frequency: holidays/special occasions only Patient Tobacco Use Status: Never used Tobacco e-Cigarette/Vaping Use: Never Used Second Hand Smoke Exposure: No (not very often ) service: No Current occupational status: employed Current occupation: [employer] Cognitive needs: No Hearing needs: No Vision needs: No Physical Exam Vital Signs: Last Vital Signs Pulse 82 12/11/24 08:52 BP 112/78 12/11/24 08:52 BMI result Body Mass Index 32.0 Const Other: Absence of Cushingoid features. Absence of acromegalic features. Neck exam reveals nl size thyroid about 15 gms. No thyroid nodules palpable. No carotid bruits present. Lungs CTA. Heart S1 S2, Reg R/R. No M/R G. Skin exam reveals absence of vitiligo or acanthosis nigricans. No edema Visual exam of foot performed. No ulcerations or open lesions. No inter digit maceration or fissuring. No onychomycosis, no callouses. Sensation intact to monofilament exam. Vibratory sensation is normal with 128 Hz tuning fork. Good cap refill positive pulses. Office Procedures Glucose Monitoring Details Details: See [facility] [address] - Glucose monitoring, continuous-physician I&R Procedure code (CPT) selection complete Results AMB Hemoglobin A1c AMB Hemoglobin A1c 8.6 % Last Edit by DIPIKA Mello on 12/11/24 09:15 Assessment & Plan Assessment & Plan (1) Diabetes type 2, uncontrolled: Code(s): E11.65 - Type 2 diabetes mellitus with hyperglycemia Category: Medical Qualifiers: Glycemic state: with hyperglycemia Qualified Code(s): E11.65 - Type 2 diabetes mellitus with hyperglycemia Plan: 49-year-old type 2 diabetic with nephropathy on an Omnipod insulin pump. Hemoglobin A1c 12/11/2024 8.6%. His current average is 201 which is primarily driven by the fact that he often does either not enter carbs accurately or he enters them after the meals starts to rise. I advised the patient that in order to improve his numbers he needs to correctly count carbohydrates and put them in before the meal. He agrees to work on this. The patient had an opportunity to ask questions regarding treatment plan. The patient expressed understanding and agreement with the above treatment plan. The patient is aware they should contact our office by phone for worsening glucose readings or for any low blood sugars which may warrant a change in diabetes medication. Compliance is encouraged with medications and any followup testing/consults which may have been ordered. (2) Dyslipidemia: Code(s): E78.5 - Hyperlipidemia, unspecified Category: Medical Plan Change atorvastatin which he is noncompliant with due to low back pain despite Co Q10 to pravastatin which he previously tolerated. LDL was above target on this in the past but he reports he was not taking it consistently. Reviewed target of LDL less than 70 Orders: Orders AMB Hemoglobin A1c Today E11.65 - Type 2 diabetes mellitus with hyperglycemia AMB Glucose Monitoring Today E11.65 - Type 2 diabetes mellitus with hyperglycemia Medications: New blood-glucose transmitter (Dexcom G6 Transmitter device) for use with sensors chnage every 3 months 1 ea 3RF pravastatin 10 mg PO BEDTIME 90 days 90 tabs 3RF insulin pump cart,auto,BT,G6/7 (Omnipod 5 G6-G7 Pods (Gen 5) subcutaneous cartridge) For continuous use. Change pods every 2 days. 45 pods in total 9 ea 3RF E11.65 - Type 2 diabetes mellitus with hyperglycemia Changed From blood-glucose sensor (Dexcom G6 Sensor device) As directed To blood-glucose sensor (Dexcom G6 Sensor device) continous use apply new sensor every 10 days 9 ea 3RF Discontinued atorvastatin Discontinued Reason: Doctor's Order 20 mg (1/2 x 40 mg) PO DAILY 90 days 45 tabs 1RF Patient Instructions: The patient was counseled to always carry a source of sugar and on the rule of 15's: Take 3 glucose tablets and repeat again in 15 minutes if blood sugar is not in normal range. Continue to repeat every 15 minutes until blood sugar is normal. Symptoms of DKA (diabetic ketoacidosis): early: frequent urination, dry mouth, fatigue, feeling ill, severe symptoms: ketones in the urine, abdominal pain, nausea, vomiting and weakness. It is important to hydrate with sugar free liquids every 15-30 minutes and bring the sugars down to normal levels. If you are moderate or severe with ketones or unable to bring glucose to less than 200, go to the emergency room. The patient was counseled to achieve a target A1C of 7% (154 avg). Fasting blood sugars should be 90-130 in the morning and less than 180 two hours after meals. Reviewed the relationship between poor diabetic control and the development of complications. The patient was counseled to always carry a source of sugar and on the rule of 15's: Take 3 glucose tablets and repeat again in 15 minutes if blood sugar is not in normal range. Continue to repeat every 15 minutes until blood sugar is normal. Coding Level of Care Code Est Pt Level 5 (03687) Diagnoses Uncontrolled type 2 diabetes mellitus with hyperglycemia E11.65 Glycemic state: with hyperglycemia Dyslipidemia E78.5 CPT Codes Details - CPT: 72565 - Glucose monitoring, continuous-physician I&R ([id number]) Time Spent (min) 50 Comment Reviewing labs/provider notes, glucose sensor/pump reports, face to face, chart doc
[2024-12-11 08:52] VITALS: BP 112/78; PULSE 82; BMI 32.0
[2024-12-11 09:03] LABS: Glucose, Whole Blood 224 mg/dL (60-115)
== END 2024-12-11 09:24 | disposition home or self-care (01) ==
PROVIDERS: PCP Nurse Practitioner Family; Visit Provider Nurse Practitioner Adult Health
DX: E11.65 Type 2 diabetes mellitus with hyperglycemia (principal); E78.5 Hyperlipidemia, unspecified
CPT/HCPCS: 95251; 99215

== ENCOUNTER → 2024-12-11 08:48 | Outpatient (BNVA) | payer BC, SELFPAY | PROVIDERS: PCP Nurse Practitioner Family; Visit Provider Nurse Practitioner Adult Health | DX: E11.65 Type 2 diabetes mellitus with hyperglycemia (principal); E11.22 Type 2 diabetes mellitus with diabetic chronic kidney disease; N18.32 Chronic kidney disease, stage 3b; E78.5 Hyperlipidemia, unspecified; Z96.41 Presence of insulin pump (external) (internal) | CPT/HCPCS: 82947; 83036 ==

== ENCOUNTER 2025-02-26 09:54 | Outpatient (AMB) | payer BC, SELFPAY ==
--- NOTE | 2025-02-26 10:21 | A.OFFVIS_ITS ---
Intake Intake Visit Reasons: 60 min [address] Required: No Accompanied by: Self / Same As Patient Allergies environmental allergies Allergy (Unknown, Verified 12/11/24 08:52) Itching lumgivey Allergy (Intermediate, Uncoded 12/11/24 08:52) Itching HPI Comprehensive Diabetes Asmnt Most Recent Diabetes Results: 2 Microalb/Creat Ratio 23.7 ug/mg cr (<30) 09/24/24 Cholesterol 207 mg/dL (<200) H 09/24/24 HDL Cholesterol 54 mg/dL (>40) 09/24/24 Triglycerides 143 mg/dL (<150) 09/24/24 Creatinine 1.96 mg/dL (0.5-1.4) H 09/24/24 Blood Urea Nitrogen 41 mg/dL (9-16) H 09/24/24 Sodium 138 mmol/L (135-145) 09/24/24 Potassium 4.4 mmol/L (3.3-5.1) 09/24/24 Chloride 107 mmol/L (96-108) 09/24/24 Carbon Dioxide 22 mmol/L (22-29) 09/24/24 Calcium 8.9 mg/dL (8.4-10.2) 09/24/24 AST 30 U/L (5-37) 09/24/24 ALT 33 U/L (0-40) 09/24/24 Total Protein 6.9 g/dL (6.5-8.0) 09/24/24 Albumin 3.9 g/dL (3.5-5.0) 09/24/24 [facility] Medical History (Updated 12/11/24 @ 09:49 by Zamzam Dennis NP) Dyslipidemia Diabetic retinopathy YISEL on CPAP Allergic rhinitis COVID-19 virus infection Malaise and fatigue Obesity (BMI 30-39.9) Vitamin D deficiency Dyslipidemia Non-toxic multinodular goiter CKD stage 3 due to type 2 diabetes mellitus Diabetic nephropathy associated with type 2 diabetes mellitus custodial (current) use of insulin Hypothyroid Diabetes type 2, uncontrolled Surgical History Hx of colonoscopy Hx of coronary angiogram Sutured skin wound Lazy eye Family History Father Diabetes mellitus Diverticulitis Colitis Overweight Kidney problem Mental health disorder Heart disease Mother Diabetes mellitus Thyroid disease History of kidney cancer Liver problem Obese Psoriasis Sleep apnea Brother No problems noted. Paternal Grandmother Mental health disorder Social History Housing: House Alcohol intake: current Alcohol intake frequency: holidays/special occasions only Patient Tobacco Use Status: Never used Tobacco e-Cigarette/Vaping Use: Never Used Second Hand Smoke Exposure: No (not very often ) service: No Current occupational status: employed Current occupation: [employer] Cognitive needs: No Hearing needs: No Vision needs: No Assessment & Plan Assessment & Plan (1) Diabetes type 2, uncontrolled: Code(s): E11.65 - Type 2 diabetes mellitus with hyperglycemia Qualifiers: Glycemic state: with hyperglycemia Qualified Code(s): E11.65 - Type 2 diabetes mellitus with hyperglycemia Plan: Omnipod 5 with Dexcom G6 The following topics were reviewed today: Transitioning from Dexcom G6 to Dexcom G7 Patient appears to be having some postprandial hyperglycemia, see changes to pump settings below Patient will be due for next A1c at visit with WINDOWS VMWARE ENGINEER on 03/11/2025 Troubleshooting after starting new pod or inserting new insulin set: Occlusion, adhesive tape sensitivity, redness Check BG 2 hours after site change Safety information: Importance of a backup plan, for manual injections, proper prescriptions and emergency supplies ketone strips, and rules for testing for ketones Setting verified by CDCES, Basal rate(s) (units/hour) : 12 AM? to 12 AM? 0.75 units / hr Bolus setting Insulin Carbohydrate Ratio (s) 12? to 12 AM?1:4.5 New 12? to 12 AM?1:4 Correction Factor / Sensitivity Factor 12 AM to 12 AM? 1:10 New 12 AM to 12 AM? 1:9 Active Insulin Time:? 4 hours Target(s): 12 AM? to 12 AM 110mg/dL Above 110 mg/dL Patient will follow up with CDE as instructed, if patient's A1c has improved from the 8.6 in November 2024 patient will follow-up with social worker delinquency prevention in 3 months. If A1c is still elevated patient instructed to move appointment up with social worker delinquency prevention for review of glucose numbers Patient will contact CDE with questions or concerns, patient given IT number to support in any technical issues related to insulin pump Coding Level of Care Code Est Pt Level 1 (35498) Diagnoses Uncontrolled type 2 diabetes mellitus with hyperglycemia E11.65 Glycemic state: with hyperglycemia
--- OUTSIDE RECORDS SUMMARY | 2025-02-26 11:22 | XMS_ITS | Encounter Summary ---
Author Organization [facility] Address [address] [address] Phone Care Team Providers Care Flask Carrier Name Role Phone Broderick Power NP Primary Care Provider [phone] Encounter Details Date Type Department Care Team (Late st Contact Info) Description 02/24/2025 Orders Only [facility] [address] [address] Terence Menendez MD [address] [address] Stage 3b chronic kidney disease (HCC); Renal osteodystrophy; Renal disorder due to type 2 diabetes mellitus <Diabetic nephropathy> (HCC) Social History Tobacco Use Types Packs/Day Years Used Date Smoking Tobacco: Never Alcohol Use Standard Drinks/Week Comments Yes 0 (1 standard drink = 0.6 oz pure alcohol) Alcoholic Drinks/day: Occasional social drink Sex and Gender Information Value Date Recorded Sex Assigned at Not on file Legal Sex Male 5:08 PM EST Gender Identity Not on file Sexual Orientation Not on file documented as of this encounter Plan of Treatment Upcoming Encounters Date Type Department Care Team (Late st Contact Info) Description 03/23/2025 10:00 AM EDT Office Visit [facility] [address] [address] Terence Menendez MD [address] [address] documented as of this encounter Visit Diagnoses Diagnosis Stage 3b chronic kidney disease (HCC) Renal osteodystrophy Renal disorder due to type 2 diabetes mellitus <Diabetic nephropathy> (HCC) documented in this encounter Care Teams Flask Carrier Relationship Specialty Start Date End Date Broderick Power NP [address] [place] [address] PCP - General Nurse Practitioner 08/23/23 documented as of this encounter
--- OUTSIDE RECORDS SUMMARY | 2025-02-26 11:22 | XMS_ITS | Clinical Summary ---
Author Organization [facility] Address [address] [place] [phone] Phone Care Team Providers Care Rotor Balancer Name Role Phone Broderick Power NP Primary Care Provider [phone] Allergies No known active allergies Medications levothyroxine (SYNTHROID, LEVOTHROID) 88 MCG tablet Take 112 mcg by mouth 1 (one) time each day Active cyanocobalamin (VITAMIN B-12) 1000 MCG tablet Take 1 tablet by mouth 1 (one) time each day Active Cholecalciferol 50 MCG (1999 UT) capsule Take 1 capsule by mouth 1 (one) time each day Active citalopram (CeleXA) 20 MG tablet Take 20 mg by mouth 1 (one) time each day 07/21/20 21 Active calcitriol (ROCALTROL) 0.25 MCG capsule Take 1 capsule (0.25 mcg total) by mouth every other day 45 capsule 2 09/22/20 21 Active Dapagliflozin Propanediol (Farxiga) 10 MG tablet Take 10 mg by mouth 1 (one) time each day in the morning 90 tablet 3 09/20/20 22 Active atorvastatin (LIPITOR) 40 MG tablet 11/07/20 22 Active metoprolol succinate XL (TOPROL XL) 25 MG 24 hr tablet Take 25 mg by mouth 1 (one) time each day 05/03/20 23 Active Farxiga 10 MG tablet TAKE 1 TABLET BY MOUTH 1 TIME EACH DAY IN THE MORNING 90 tablet 3 10/05/20 23 Active losartan (COZAAR) 25 MG tablet TAKE 2 TABLETS(50 MG) BY MOUTH 1 TIME EACH DAY 90 tablet 11 08/18/20 24 Active Insulin Lispro 100 UNIT/ML solution INFUSE UP TO 75 UNITS PER DAY VIA INSULIN PUMP SUBCUTANEOUSLY 08/19/20 24 Active Finerenone (Kerendia) 10 MG tablet Take 10 mg by mouth in the morning. 90 tablet 1 09/26/20 24 025 Active Active Problems Problem Noted Date Diagnosed Date Obese class I 05/21/2023 Chronic kidney disease, stage 4 (severe) 023 Stage 3b chronic kidney disease 09/22/2021 Renal osteodystrophy 09/22/2021 Anemia 06/28/2021 Chronic kidney disease stage 3 06/28/2021 Renal disorder due to type 2 diabetes mellitus 0 06/28/2021 Encounters Date Type Department Care Team Description 02/24/2025 Orders Only [facility] [address] [address] Terence Menendez MD Stage 3b chronic kidney disease (HCC); Renal osteodystrophy; Renal disorder due to type 2 diabetes mellitus <Diabetic nephropathy> (HCC) from Last 3 Months Family History Medical History Relation Comments Diabetes Father Hypertension Father Kidney disease Father Dementia Mother Diabetes Mother Hypertension Mother Kidney disease Mother kidney CA Relation Status Comments Father Alive Mother Social History Tobacco Use Types Packs/Day Years Used Date Smoking Tobacco: Never Alcohol Use Standard Drinks/Week Comments Yes 0 (1 standard drink = 0.6 oz pure alcohol) Alcoholic Drinks/day: Occasional social drink Sex and Gender Information Value Date Recorded Sex Assigned at Not on file Legal Sex Male 5:08 PM EST Gender Identity Not on file Sexual Orientation Not on file Last Filed Vital Signs Vital Sign Reading Time Taken Comments Blood Pressure 124/65 09/26/2024 9:10 AM EST Pulse 69 09/26/2024 9:10 AM EST Temperature - - Respiratory Rate - - Oxygen Saturation 98% 09/26/2024 9:10 AM EST Inhaled Oxygen Concentration - - Weight 67.5 kg (148 lb 12.8 oz) 09/26/2024 9:10 AM EST Height 167.6 cm (5' 6 ) 11/24/2019 12:0 0 PM EST Body Mass Index 24.02 11/24/2019 12:00 PM EST Plan of Treatment Upcoming Encounters Date Type Department Care Team ([facility] st Contact Info) Description 03/23/2025 10:00 AM EDT Office Visit [facility] [address] [address] Terence Menendez MD [address] [address] Health Maintenance Due Date Last Done Comments Pneumococcal Vaccine: Peds ( 0 to 5 Years) and At-Risk Patients (6 to 49 Years) (1 of 2 - PCV) 1983 Hepatitis B Vaccine (1 of 3 - 19+ 3-dose series) 1996 Diabetes: Ophthalmology Exam 12/20/2020 Diabetes: Pedal Pulse Checked 12/20/2020 Diabetes: Sensory Foot Exam 12/20/2020 Diabetes: Visual Foot Exam 12/20/2020 Diabetes: Hemoglobin A1C 02/06/2023 11/08/2022, 12/2019 Influenza Vaccine (Season Ended) 2025 Procedures Procedure Name Priority Date/Time Associated Diagnosis Comments EXT RESULT ENTRY Routine 11/08/2022 from Last 3 Months or Most Recently Relevant to Health Maintenance Results * (ABNORMAL) EXT RESULT ENTRY (11/08/2022) WBC 5.4 3.3 - 10.0 10*3/ML Red Blood Cell Count 4.79 Hemoglobin 14.3 13.5 - 17.5 Hematocrit 43.8 41.0 - 53.0 Platelets 198 150 - 399 10*3/UL MCV 91.4 82.0 - 108.0 Sodium 140 137 - 147 Potassium 4.7 3.4 - 5.5 Chloride 107.0 99.0 - 108.0 Anion Gap 13 <=30 MMOL/L BUN 28(A) 4 - 21 mg/dL Creatinine 2.33(A) 0.60 - 1.30 mg/dL Albumin 4.2 3.5 - 5.0 g/dL Calcium 9.3 8.7 - 10.7 mg/dL Hemoglobin A1C 7.8(A) 4.0 - 6.0 Triglycerides 188 Cholesterol, Total 168 11/08/2022 us Historical Provider LAB BLOOD ORDERABLES Indira l Result from Last 3 Months or Most Recently Relevant to Health Maintenance Care Teams Rotor Balancer Relationship Specialty Start Date End Date Broderick Power NP [facility] [place] [address] PCP - General Nurse Practitioner 08/23/23
--- OUTSIDE RECORDS SUMMARY | 2025-02-26 11:22 | XMS_ITS | Encounter Summary ---
Author Organization [facility] Address [address] [facility] [address] [place] [address] Phone Care Team Providers Care Bleach Plant Operator Name Role Phone Tono Broderick LOTTIE Primary Care Provider [phone] Encounter Details Date Type Department Care Team (Late st Contact Info) Description 09/20/2022 Telephone [facility] [address] [place] [address] [place] [address] Terence Menendez MD [address] [facility] [address] [place] [address] Social History Tobacco Use Types Packs/Day Years [...] on file documented as of this encounter Miscellaneous Notes * Telephone Encounter - Brenda Cooper - 09/20/2022 11:23 AM EDT Pts pcp office called would like to know if its ok to increase pts diabetic med farxiga to 10mg. Heis currently on 5mg. If not what would be a better suggestion to help get his blood sugar under control while still protecting his kidneys. Please advise Thank you CB# [phone] documented in this encounter Plan of Treatment Upcoming Encounters Date Type Department Care Team (Late st Contact Info) Description 03/23/2025 10:00 AM EDT [facility] [address] [address] Terence Menendez MD [address] [address] documented as of this encounter Visit Diagnoses Not on filedocumented in this encounter Care Teams Bleach Plant Operator Relationship Specialty Start Date End Date Broderick Power [place] [address] PCP - General Nurse Practitioner 08/23/23 documented as of this encounter
== END 2025-02-26 10:25 | disposition home or self-care (01) ==
LOC: HO.ENCR 09:55
PROVIDERS: PCP Nurse Practitioner Family; Visit Provider Registered Nurse Diabetes Educator
DX: E11.65 Type 2 diabetes mellitus with hyperglycemia (principal)

== ENCOUNTER → 2025-02-26 09:54 | Outpatient (BNVA) | payer BC, SELFPAY | PROVIDERS: PCP Nurse Practitioner Family; Visit Provider Registered Nurse Diabetes Educator | DX: Z46.81 Encounter for fitting and adjustment of insulin pump (principal); E11.65 Type 2 diabetes mellitus with hyperglycemia; Z79.4 Long term (current) use of insulin | CPT/HCPCS: 99211 ==

== ENCOUNTER 2025-03-11 08:47 | Outpatient (AMB) | payer BC, SELFPAY ==
--- NOTE | 2025-03-11 07:47 | A.OFFVIS_ITS ---
Vital Signs 03/11/25 08:50 Height 5 ft 6 in Weight 198 lb 6.656 oz BMI 32.0 BP 120/80 Blood Pressure Location Rt brachial Position Sitting Pulse 68 Pulse Source Pulse Oximeter Pulse Oximetry (%) 98 Oxygen Delivery Method Room Air Intake Visit Reasons: T2DM Intake Note: Patient presents today for a follow-up on Type 2 Diabetes Mellitus: Last Diabetic Eye exam: 07/09/2024, [facility] Last Podiatry Exam: Does not see a Sales Program Manager Most recent HbA1c: 9.4%, 03/11/2025 Random Glucose- 135 mg/dL, Today Pan Pusher Required: No Accompanied by: Self / Same As Patient Allergies environmental allergies Allergy (Unknown, Verified 03/11/25 08:50) Itching lumgivey Allergy (Intermediate, Uncoded 03/11/25 08:50) Itching Medication List - Last Reconciled 03/11/25 by Zamzam Dennis NP acetone (urine) test (Ketone Urine Test strips) As directed glucose over 250, illness albuterol sulfate 90 mcg/actuation 2 puffs inhalation ONCE PRN blood-glucose sensor (Dexcom G6 Sensor device) continous use apply new sensor every 10 days blood-glucose sensor (Dexcom G7 Sensor device) As directed every 10 days blood-glucose transmitter (Dexcom G6 Transmitter device) for use with sensors chnage every 3 months blood-glucose,cleaning matron,cont (Dexcom G6 Tariff Inspector) As directed calcitriol 0.25 mcg PO Q OTHER DAY cetirizine (Zyrtec) 10 mg PO DAILY PRN cholecalciferol (vitamin D3) 125 mcg PO DAILY citalopram 20 mg PO DAILY 90 days dapagliflozin propanediol (Farxiga) 10 mg PO DAILY insulin glargine (Lantus Solostar U-100 Insulin) 17 units (0.17 mL) subcut QPM 30 days insulin lispro (Humalog U-100 Insulin) infuse up to 75 units per day via insulin pump subcutaneously; insulin pump cart,auto,BT,G6/7 (Omnipod 5 G6-G7 Pods (Gen 5) subcutaneous cartridge) For continuous use. Change pods every 2 days. 45 pods in total insulin pump cart,auto,BT-cntr (Omnipod 5 G6 Intro Kit (Gen 5) subcutaneous cartridge with controller) As directed levothyroxine 112 mcg PO QAM 90 days losartan 50 mg (2 x 25 mg) PO DAILY metoprolol succinate ER (Toprol XL) 25 mg PO DAILY 90 days ondansetron 8 mg PO Q12H PRN 7 days pravastatin 10 mg PO BEDTIME 90 days sumatriptan succinate (Imitrex) Take 1 tab at onset of headache; if no relief may repeat 1 tab after at least 2 hrs; max = 3 tabs/24 hr PO HPI Comments Details: Patient is a 49-year-old male with DM type 2 in setting of CKD stage 3 B who presents for management of diabetes. He is on an Omnipod 5 with DexcomG7 sensor. He was last seen by myself 12/11/2024 and recently by Negrita EDWARDS 02/26/2025 at which time his insulin carbohydrate ratios were adjusted to give him more pre-prandial insulin. A1C 03/11/2025 9.5 % 12/11/2024 8.6%, 8.9% on 07/02/24. He has had high co-pay and the [id number] deductible beginning of the year and has had difficulty affording supplies. He has been going on and off pump but not taking Lantus for basal. When he is off pump he uses insulin to carb ratio in attempts to estimate correction factor. Dexcom average glucose: 205 14 day continuous glucose monitor report reviewed Above target 55% of the time on target 45 % 0 % low less than 1% very low Basal 68% 38.3 bolus 32% 17.8 Micro and macrovascular complications: Nephropathy with low eGFR 37 Had prior problems with lumgivey Diabetes medications: Omnipod 5 also Farxiga 10 mg q.d. Sleeps late. 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 Menendez Cardiology: He will schedule follow up. Has been inconsistent with a statin as he has back pain with atorvastatin. He does take Co Q10 but this does not always work. He reports he was previously on pravastatin and did well with this but was not taking consistently in his LDL was not at target. He would like to try this again. Sleeps late. 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 Menendez. He is on an ARB eGFR 37 09/24/24. Basal rate(s) (units/hour) : 12 AM? to 12 AM? 0.75 units / hr Bolus setting Insulin Carbohydrate Ratio (s) 12? to 12 AM?1:4 Correction Factor / Sensitivity Factor 12 AM to 12 AM? 1:10 Active Insulin Time:? 4 hours 3.0 Target(s): 12 AM? to 12 AM 110mg/dL Above 110 mg/dL [facility] Medical History Dyslipidemia Diabetic retinopathy YISEL on CPAP Allergic rhinitis COVID-19 virus infection Malaise and fatigue Obesity (BMI 30-39.9) Vitamin D deficiency Dyslipidemia Non-toxic multinodular goiter CKD stage 3 due to type 2 diabetes mellitus Diabetic nephropathy associated with type 2 diabetes mellitus terminologist (current) use of insulin Hypothyroid Diabetes type 2, uncontrolled Surgical History Hx of colonoscopy Hx of coronary angiogram Sutured skin wound Lazy eye Family History Father Diabetes mellitus Diverticulitis Colitis Overweight Kidney problem Mental health disorder Heart disease Mother Diabetes mellitus Thyroid disease History of kidney cancer Liver problem Obese Psoriasis Sleep apnea Brother No problems noted. Paternal Grandmother Mental health disorder Social History Housing: House Alcohol intake: current Alcohol intake frequency: holidays/special occasions only Patient Tobacco Use Status: Never used Tobacco e-Cigarette/Vaping Use: Never Used Second Hand Smoke Exposure: No (not very often ) service: No Current occupational status: employed Current occupation: [employer] Cognitive needs: No Hearing needs: No Vision needs: No Physical Exam Vital Signs: Last Vital Signs Pulse 68 03/11/25 08:50 BP 120/80 03/11/25 08:50 Pulse Ox 98 03/11/25 08:50 Oxygen Delivery Method Room Air 03/11/25 08:50 BMI result Body Mass Index 32.0 Const Other: Absence of Cushingoid features. Absence of acromegalic features. Neck exam reveals nl size thyroid about 15 gms. No thyroid nodules palpable. Heart S1 S2, Reg R/R. No M/R G. Skin exam reveals absence of vitiligo or acanthosis nigricans. Visual exam of foot performed. No ulcerations or open lesions. No inter digit maceration or fissuring. No onychomycosis, no callouses. Sensation intact to monofilament exam. Vibratory sensation is normal with 128 Hz tuning fork. Pulses positive Results AMB Hemoglobin A1c AMB Hemoglobin A1c 9.5 % Last Edit by DIPIKA Mello on 03/11/25 09:17 Results Reviewed Results Reviewed: Laboratory Last Values Glucose (Clinic) 135 mg/dL (60-115) H 03/11/25 09:02 Assessment & Plan Assessment & Plan (1) Diabetes type 2, uncontrolled: Code(s): E11.65 - Type 2 diabetes mellitus with hyperglycemia Category: Medical Qualifiers: Glycemic state: with hyperglycemia Qualified Code(s): E11.65 - Type 2 diabetes mellitus with hyperglycemia Plan: 49-year-old type 2 diabetic with nephropathy followed by Nephrology with low EGFR on an Omnipod insulin pump with G7 sensor. He was encouraged to stay on pump as much as possible and if he does come off he needs to use MDI with Humalog pre meal and 17 units of Lantus. He was given to G7 sensors today. A prescription for G7 was also sent. He is finding that the G7 is more accurate than the G6 and has less warmup time. When he changes sensors to G7 he is also finding that it is 50 points more accurate than G6. Has CKD and encouraged to follow up with Dr. Menendez. The patient had an opportunity to ask questions regarding treatment plan. The patient expressed understanding and agreement with the above treatment plan. The patient is aware they should contact our office by phone for worsening glucose readings or for any low blood sugars which may warrant a change in diabetes medication. Compliance is encouraged with medications and any followup testing/consults which may have been ordered. Orders: Orders AMB Hemoglobin A1c Today E11.65 - Type 2 diabetes mellitus with hyperglycemia Medications: New blood-glucose sensor (Dexcom G7 Sensor device) As directed every 10 days 3 ea 11RF insulin glargine (Lantus Solostar U-100 Insulin) 17 units (0.17 mL) subcut QPM 30 days 6 mL 11RF On Hold blood-glucose sensor (Dexcom G6 Sensor device) Hold Comment: Doctor's Order continous use apply new sensor every 10 days 9 ea 3RF blood-glucose transmitter (Dexcom G6 Transmitter device) Hold Comment: Doctor's Order for use with sensors chnage every 3 months 1 ea 3RF Patient Instructions: The patient was counseled to achieve a target A1C of 7% (154 avg). Fasting blood sugars should be 90-130 in the morning and less than 180 two hours after meals. Reviewed the relationship between poor diabetic control and the development of complications. Coding Level of Care Code Est Pt Level 4 (95098) Complex EM visit Add On G2211 Diagnoses Uncontrolled type 2 diabetes mellitus with hyperglycemia E11.65 Glycemic state: with hyperglycemia
[2025-03-11 08:50] VITALS: BP 120/80; PULSE 68; O2SAT 98; BMI 32.0
[2025-03-11 09:06] LABS: Glucose, Whole Blood 135 mg/dL (60-115)
--- OUTSIDE RECORDS SUMMARY | 2025-03-11 09:19 | XMS_ITS | Clinical Summary ---
Author Organization [facility] Address [address] [place] [phone] Phone Care Team Providers Care Health Assessment And Treatment Teacher Name Role Phone Broderick Power NP Primary Care Provider [phone] Allergies No known active allergies Medications levothyroxine [...] Orders Only [facility] [address] [address] Terence Menendez MD Stage 3b [...] Upcoming Encounters Date Type Department Care Team ([facility] st Contact Info) Description 03/23/2025 10:00 AM EDT Office Visit [facility] [address] [address] Terence Menendez MD [address] [address] Health Maintenance Due Date Last Done Comments Hepatitis B Vaccine (1 of 3 - 19+ 3-dose series) 1996 Pneumococcal Vaccine: Peds ( 0 to 5 Years) and At-Risk Patients (6 to 49 Years) (1 of 2 - PCV) 1996 Diabetes: Ophthalmology Exam 12/20/2020 Diabetes: Pedal [...] Recently Relevant to Health Maintenance Care Teams Health Assessment And Treatment Teacher Relationship Specialty Start Date End Date Broderick Power NP [facility] [place] [address] PCP - General Nurse Practitioner 08/23/23
--- OUTSIDE RECORDS SUMMARY | 2025-03-11 09:19 | XMS_ITS | Encounter Summary ---
Author Organization [facility] Address [address] [facility] [address] [place] [address] Phone Care Team Providers Care Antichecking Iron Worker Name Role Phone Tono Broderick LOTTIE Primary Care Provider [phone] Encounter Details Date Type Department Care Team (Late st Contact Info) Description 09/20/2022 Telephone [facility] [address] [place] [address] [place] [address] Terence Menendez MD [address] [facility] [address] [place] [address] Social History Tobacco Use Types [...] his kidneys. Please advise Thank you CB# [phone] documented in this encounter Plan of Treatment Upcoming Encounters Date Type Department Care Team (Late st Contact Info) Description 03/23/2025 10:00 AM EDT [facility] Visit [facility] [address] [address] Terence Menendez MD [address] [address] documented as of this encounter Visit Diagnoses Not on filedocumented in this encounter Care Teams Antichecking Iron Worker Relationship Specialty Start Date End Date Broderick Power NP [facility] [place] [address] PCP - General Nurse Practitioner 08/23/23 documented as of this encounter
== END 2025-03-11 09:26 | disposition home or self-care (01) ==
LOC: HO.ENCR 08:48
PROVIDERS: PCP Nurse Practitioner Family; Visit Provider Nurse Practitioner Adult Health
DX: E11.65 Type 2 diabetes mellitus with hyperglycemia (principal)
CPT/HCPCS: 99214

== ENCOUNTER → 2025-03-11 08:47 | Outpatient (BNVA) | payer BC, SELFPAY | PROVIDERS: PCP Nurse Practitioner Family; Visit Provider Nurse Practitioner Adult Health | DX: E11.65 Type 2 diabetes mellitus with hyperglycemia (principal); E11.22 Type 2 diabetes mellitus with diabetic chronic kidney disease; N18.32 Chronic kidney disease, stage 3b; Z96.41 Presence of insulin pump (external) (internal) | CPT/HCPCS: 82947; 83036 ==

== ENCOUNTER 2025-03-24 11:19 | Outpatient (REF) | payer BC, SELFPAY ==
[2025-03-24 11:34] LABS: MANUAL DIFF FLAG NO
[2025-03-24 11:49] LABS: Basophils Absolute Auto 0.1 X10*3/uL (0.0-0.2); Basophils Percent Auto 0.9 % (0-2); Eosinophils Absolute Auto 0.2 X10*3/uL (0.0-0.4); Hematocrit 47.7 % (42.0-52.0); Hemoglobin 15.8 g/dl (14.0-18.0); Imm Gran Abs Auto 0.02 X10*3/uL (0.00-0.03); Imm Gran Pct Auto 0.4 % (0.0-0.4); Lymphocytes Absolute Auto 1.4 X10*3/uL (1.2-4.9); Lymphocytes Percent Auto 23.9 % (20-40); Mean Corpuscular HGB Conc 33.1 g/dl (31.0-36.0); Mean Corpuscular Volume 90.5 fL (80.0-98.0); Monocytes Absolute Auto 0.4 X10*3/uL (0.1-1.2); Monocytes Percent Auto 7.6 % (2-11); Neutrophils Absolute Auto 3.7 x10*3/uL (2.0-8.3); Neutrophils Percent Auto 64.2 % (45-73); Platelet Count 195 X10*3/uL (160-400); Red Blood Count 5.27 X10*6/uL (4.60-5.80); Red Cell Distribution Width 13.8 % (11.0-16.0); White Blood Count 5.7 X10*3/uL (4.8-10.8)
[2025-03-24 11:54] LABS: Appearance Urine Clear; Color Urine Yellow; Glucose Urine UA >=1000 mg/dL (Negative); Leukocyte Esterase Urine Negative (Negative); Nitrite Urine Negative (Negative); Specific Gravity - Urine 1.025 (1.005-1.025); UMIC TRIGGER UA YES; Urine Blood Negative (Negative); Urine Ketones Negative (Negative); Urine Protein Trace mg/dL (Neg-Trace)
[2025-03-24 11:57] LABS: Bacteria Urine None Seen (None Seen); Hyaline Casts Urine 0-2 /LPF (0-2); RBC Urine 0-2 /HPF (0-2); Squamous Epithelial Cell Urine 0-2 /HPF (0-2); WBC Urine 0-5 /HPF (0-5)
[2025-03-24 12:17] LABS: Albumin Level 4.3 g/dL (3.5-5.0); Anion Gap 12 (12-20); Blood Urea Nitrogen 25 mg/dL (9-16); Carbon Dioxide 26 mmol/L (22-29); Chloride 106 mmol/L (96-108); Estimated Glomerular Filt Rate 37; Phosphorus 3.2 mg/dL (2.7-4.5); Potassium 4.4 mmol/L (3.3-5.1); Sodium 140 mmol/L (135-145)
[2025-03-24 12:20] LABS: Parathyroid Hormone Intact 427.5 pg/mL (8.7-77.1)
[2025-03-24 12:35] LABS: Vitamin D 25-OH Total 17.8 ng/mL (>30)
[2025-03-24 12:55] LABS: Creatinine Urine 58.88 mg/dL; Microalbum/Creatinine Ratio Ur 52.6 ug/mg cr (<30); Protein/Creatinine Ratio, Ur 0.22 (<0.2); Total Protein Urine Random 13 mg/dL (<12)
--- OUTSIDE RECORDS SUMMARY | 2025-03-24 13:11 | XMS_ITS | Encounter Summary ---
Author Organization [facility] Address [address] [facility] [address] [place] [address] Phone Care Team Providers Care Sumac Tanner Name Role Phone Roneyricardo Broderick LOTTIE Primary Care Provider [phone] Encounter Details Date Type Department Care Team (Late st Contact Info) Description 09/20/2022 Telephone [facility] [address] [place] [address] [place] [address] Terence Menendez MD [address] [facility] [address] [place] [address] Social History Tobacco Use Types [...] his kidneys. Please advise Thank you CB# [phone] documented in this encounter Plan of Treatment Upcoming Encounters Date Type Department Care Team (Late st Contact Info) Description 03/30/2025 10:30 AM EDT Office Visit [facility] [address] [address] Terence Menendez MD [address] [address] documented as of this encounter Visit Diagnoses Not on filedocumented in this encounter Care Teams Sumac Tanner Relationship Specialty Start Date End Date Broderick Power NP [facility] [place] [address] PCP - General Nurse Practitioner 08/23/23 documented as of this encounter
--- OUTSIDE RECORDS SUMMARY | 2025-03-24 13:11 | XMS_ITS | Encounter Summary ---
Author Organization [facility] Address [address] [address] Phone Care Team Providers Care Electrician Substation Name Role Phone Broderick Power NP Primary Care Provider [phone] Encounter Details Date Type Department Care Team (Late Contact Info) Description 03/24/2025 Orders Only [facility] [address] [place] [address] Terence Menendez MD [address] [address] Social History Tobacco Use Types Packs/Day [...] EDT Office Visit [facility] [address] [address] Terence Menendez MD [address] [address] documented as of this encounter Procedures Procedure Name Priority Date/Time Associated Diagnosis Comments ALBUMIN, URINE, RANDOM Routine 03/24/2025 11:46 AM EDT CREATININE, BLOOD Routine 03/24/2025 11: 33 AM EDT PTH, INTACT (HC) Routine 03/24/2025 11:3 3 AM EDT CBC AND DIFFERENTIAL Routine 03/24/2025 11:33 AM EDT BUN Routine 03/24/2025 11:33 AM EDT ELECTROLYTE PANEL Routine 03/24/2025 11: 33 AM EDT documented in this encounter Results * (ABNORMAL) Albumin, urine, random (03/24/2025 11:46 AM EDT) Creatinine, Urine 58.88 mg/dL Se e order comments Urine Microalbumin 31.0 mg/L See order comments Microalbumin/Crea tinine Ratio 52.6(H) <30 ug/mg cr See order comments Comment: ?Albumin/Creatinine Ratio Reference Ranges: ?Normal: < 30 ug/mg creatinine ?Microalbuminuria: ??30 - 300 ug/mg creatinine Clinical Albuminuria: ??> 300 ug/mg creatinine 03/24/2025 11:4 6 AM EDT 03/24/2025 11:46 AM EDT Terence Menendez MD LAB URINE ORDERABLES Final Re sult [place] See order comments [place] [address] * (ABNORMAL) PTH, Intact (03/24/2025 11:33 AM EDT) Parathyroid Hormone, Intact 427.5(H) 8.7 - 77.1 pg/mL See order comments 03/24/2025 11:3 3 AM EDT 03/24/2025 11:33 AM EDT Terence Menendez MD LAB [id number] SOLICITED RESULTS Final Result Performing Organization Address [facility] de Phone Number [place] See order comments [place] [address] * (ABNORMAL) Creatinine (03/24/2025 11:33 AM EDT) Creatinine Serum 1.97(H) 0.5 - 1.4 mg/dL See order comments eGFR 37 See order comments Comment: Chronic Kidney Disease: ??Estimated GFR < 60 mL/min/1.73m2 Severe Kidney Disease: ??Estimated GFR < 15 mL/min/1.73m2 03/24/2025 11:3 3 AM EDT 03/24/2025 11:33 AM EDT us Terence Menendez MD LAB BLOOD ORDERABLES Final Re sult Performing Organization Address [facility] de Phone Number [place] See order comments [place] [address] * (ABNORMAL) BUN (03/24/2025 11:33 AM EDT) BUN 25(H) 9 - 16 mg/dL See order comments 03/24/2025 11:3 3 AM EDT 03/24/2025 11:33 AM EDT us Terence Menendez MD LAB BLOOD ORDERABLES Final Re sult Performing Organization Address [facility] de [facility] See order comments [place] [address] * Electrolyte panel (03/24/2025 11:33 AM EDT) Sodium 140 135 - 145 mmol/L See order comments Potassium 4.4 3.3 - 5.1 mmol/L See order comments Chloride 106 96 - 108 mmol/L See order comments Bicarbonate (CO2) 26 22 - 29 mmol/L See order comments Anion Gap 12 12 - 20 See order comments 03/24/2025 11:3 3 AM EDT 03/24/2025 11:33 AM EDT us Terence Menendez MD LAB BLOOD ORDERABLES Final Re sult [place] See order comments [place] [address] * CBC and Differential (03/24/2025 11:33 AM EDT) WBC 5.7 4.8 - 10.8 X10*3/uL See order comments RBC 5.27 4.60 - 5.80 X10*6/uL See order comments Hgb 15.8 14.0 - 18.0 g/dl See order comments Hematocrit 47.7 42.0 - 52.0 % See order comments MCV 90.5 80.0 - 98.0 fL See order comments MCH 30.0 27.0 - 33.0 pg See order comments MCHC 33.1 31.0 - 36.0 g/dl See order comments RDW 13.8 11.0 - 16.0 % See order comments Platelets 195 160 - 400 X10*3/uL See order comments MPV 10.0 9.4 - 12.4 fL See order comments Neutrophils % Auto 64.2 45 - 73 % See order comments Immature Granulocytes 0.4 0.0 - 0.4 % See order comments Lymphocytes Relative 23.9 20 - 40 % See order comments Monocytes 7.6 2 - 11 % See order comments Eosinophils Relative 3.0 0 - 4 % See order comments Basophils Relative 0.9 0 - 2 % See order comments nRBC Count 0.0 0.0 - 0.2 /100WBC See order comments Neutrophils Absolute 3.7 2.0 - 8.3 x10*3/uL See order comments Immature Grans (Absolute) 0.02 0.00 - 0.03 X10*3/uL See order comments Lymphocytes Absolute 1.4 1.2 - 4.9 X10*3/uL See order comments Monocytes Absolute 0.4 0.1 - 1.2 X10*3/uL See order comments Eosinophils Absolute 0.2 0.0 - 0.4 X10*3/uL See order comments Basophils Absolute 0.1 0.0 - 0.2 X10*3/uL See order comments NRBC Absolute 0.000 0.0 - 0.012 X10*3/uL See order comments 03/24/2025 11:3 3 AM EDT 03/24/2025 11:33 AM EDT us Terence Menendez MD LAB BLOOD ORDERABLES Final Re sult [place] See order comments [place] [address] documented in this encounter Visit Diagnoses Not on filedocumented in this encounter Care Teams Electrician Substation Relationship Specialty Start Date End Date Broderick Power NP [address] [place] [address] PCP - General Nurse Practitioner 08/23/23 documented as of this encounter
--- OUTSIDE RECORDS SUMMARY | 2025-03-24 13:11 | XMS_ITS | Encounter Summary ---
Author Organization [facility] Address [address] [facility] [address] [place] [address] Phone Care Team Providers Care Reading Teacher Name Role Phone Broderick Power NP Primary Care Provider [phone] Reason for Visit * Reason Comments Med Refill Encounter Details Date Type Department Care Team (Late st Contact Info) Description 03/23/2025 Refill [facility] [address] [facility] [address] [place] [address] Terence Menendez MD [address] [facility] [address] [place] [address] Social History Tobacco Use Types [...] Visit [facility] [address] [address] Terence Menendez MD [address] [phone] documented as of this encounter Visit Diagnoses Not on filedocumented in this encounter Care Teams Reading Teacher Relationship Specialty Start Date End Date Broderick Power NP [address] [place] [address] PCP - General Nurse Practitioner 08/23/23 documented as of this encounter
--- OUTSIDE RECORDS SUMMARY | 2025-03-24 13:11 | XMS_ITS | Clinical Summary ---
Author Organization [facility] Address [address] [address] Phone Care Team Providers Care Dental Front Office Assistant Name Role Phone Broderick Power NP Primary Care Provider [phone] Allergies No known active allergies Medications levothyroxine (SYNTHROID, LEVOTHROID) 88 MCG tablet Take 112 mcg by mouth 1 (one) time each day Active cyanocobalamin (VITAMIN B-12) 1000 MCG tablet Take 1 tablet by mouth 1 (one) time each day Active Cholecalcifero l 50 MCG (1999) capsule Take 1 capsule by mouth 1 (one) time each day Active citalopram (CeleXA) 20 MG tablet Take 20 mg by mouth 1 (one) time each day Active calcitriol (ROCALTROL) 0.25 MCG capsule Take 1 capsule (0.25 mcg total) by mouth every other day 45 capsule 2 021 Active Dapagliflozin Propanediol (Farxiga) 10 MG tablet Take 10 mg by mouth 1 (one) time each day in the morning 90 tablet 3 022 Active atorvastatin (LIPITOR) 40 MG tablet 022 Active metoprolol succinate XL (TOPROL XL) 25 MG 24 hr tablet Take 25 mg by mouth 1 (one) time each day 023 Active losartan (COZAAR) 25 MG tablet TAKE 2 TABLETS(50 MG) BY MOUTH 1 TIME EACH DAY 90 tablet 11 024 Active Insulin Lispro 100 UNIT/ML solution INFUSE UP TO 75 UNITS PER DAY VIA INSULIN PUMP SUBCUTANEOUSLY 024 Active Finerenone (Kerendia) 10 MG tablet Take 10 mg by mouth in the morning. 90 tablet 1 024 2024 Active Dapagliflozin Propanediol 10 MG tablet TAKE 1 TABLET BY MOUTH EVERY DAY IN THE MORNING 90 tablet 3 025 Active Farxiga 10 MG tablet TAKE 1 TABLET BY MOUTH 1 TIME EACH DAY IN THE MORNING 90 tablet 3 023 2024 Discontinued Active Problems Problem Noted Date Diagnosed Date Obese class I 05/21/2023 Chronic kidney disease, stage 4 (severe) 023 Stage 3b chronic kidney disease 09/22/2021 Renal osteodystrophy 09/22/2021 Anemia 06/28/2021 Chronic kidney disease stage 3 06/28/2021 Renal disorder due to type 2 diabetes mellitus 0 06/28/2021 Encounters Date Type Department Care Team Description 03/24/2025 Orders Only [facility] [address] [facility] [address] [place] [address] Terence Menendez MD 03/23/2025 Refill [facility] [address] [place] [address] Terence Menendez MD 02/24/2025 Orders Only [facility] [address] [facility] [address] [place] [address] Terence Menendez MD Stage 3b chronic kidney [...] Office Visit [facility] [address] [address] Terence Menendez MD [address] [address] Health Maintenance Due Date Last Done Comments Hepatitis B Vaccine (1 of 3 - 19+ 3-dose series) 1996 Pneumococcal Vaccine: Peds ( 0 to 5 Years) and At-Risk Patients (6 to 49 Years) (1 of 2 - PCV) 1996 Diabetes: Ophthalmology Exam 12/20/2020 Diabetes: Pedal Pulse Checked 12/20/2020 Diabetes: Sensory Foot Exam 12/20/2020 Diabetes: Visual Foot Exam 12/20/2020 Diabetes: Hemoglobin A1C 06/10/202503/11/ 025, 11/08/2022, 10/20/2020 Influenza Vaccine (Season Ended) 2025 Procedures Procedure Name Priority Date/Time Associated Diagnosis Comments ALBUMIN, URINE, RANDOM Routine 03/24/2025 11:46 AM EDT PROTEIN / CREATININE RATIO, URINE Routine 03/24/2025 11:46 AM EDT Stage 3b chronic kidney disease (HCC) Renal osteodystrophy Renal disorder due to type 2 diabetes mellitus <Diabetic nephropathy> (HCC) URINALYSIS WITH MICROSCOPIC Routine 03/24/2025 11:46 AM EDT Stage 3b chronic kidney disease (HCC) Renal osteodystrophy Renal disorder due to type 2 diabetes mellitus <Diabetic nephropathy> (HCC) PTH, INTACT (HC) Routine 03/24/2025 11:3 3 AM EDT CREATININE, BLOOD Routine 03/24/2025 11: 33 AM EDT BUN Routine 03/24/2025 11:33 AM EDT ELECTROLYTE PANEL Routine 03/24/2025 11: 33 AM EDT CBC AND DIFFERENTIAL Routine 03/24/2025 11:33 AM EDT CALCIUM Routine 03/24/2025 11:33 AM EDT Stage 3b chronic kidney disease (HCC) Renal osteodystrophy Renal disorder due to type 2 diabetes mellitus <Diabetic nephropathy> (HCC) ALBUMIN Routine 03/24/2025 11:33 AM EDT Stage 3b chronic kidney disease (HCC) Renal osteodystrophy Renal disorder due to type 2 diabetes mellitus <Diabetic nephropathy> (HCC) MAGNESIUM Routine 03/24/2025 11:33 AM EDT Stage 3b chronic kidney disease (HCC) Renal osteodystrophy Renal disorder due to type 2 diabetes mellitus <Diabetic nephropathy> (HCC) PHOSPHATE ( PHOSPHORUS) Routine 03/24/2025 11:33 AM EDT Stage 3b chronic kidney disease (HCC) Renal osteodystrophy Renal disorder due to type 2 diabetes mellitus <Diabetic nephropathy> (HCC) VITAMIN D 25 HYDROXY Routine 03/24/2025 11:33 AM EDT Stage 3b chronic kidney disease (HCC) Renal osteodystrophy Renal disorder due to type 2 diabetes mellitus <Diabetic nephropathy> (HCC) ALT EXT LABS Routine 03/11/2025 from Last 3 Months Results * (ABNORMAL) Protein, Total, Random Urine w/Creatinine (Protein/Creat Ratio) (03/24/2025 11:46 AM EDT) Protein Urine Random 13(H) <12 mg/dL See order comments Protein/Creati nine Ratio, Urine 0.22(H) <0.2 See order comments Comment: The spot urine protein:creatinine ratio may increase to 0.3 during normal . Urine (Urine, Clean Catch) 03/24/2025 11:46 AM EDT 03/24/2025 11:46 AM EDT Terence Menendez MD LAB URINE ORDERABLES Final Re sult Performing Organization Address [facility] de Phone Number [place] See order comments [place] [address] * (ABNORMAL) Albumin, urine, random (03/24/2025 11:46 [...] Menendez MD LAB URINE ORDERABLES Final Re sul Performing Organization Address [facility] de Phone Number [place] See order comments [place] [address] * (ABNORMAL) Urinalysis with microscopic (03/24/2025 11:46 AM EDT) Color Urine Yellow See orde r comments Appearance Urine Clear See order comments pH Urine 6.0 5.0 - 9.0 See order comments Glucose Urine >=1000(A) Negative mg/dL See order comments Blood, Urine Negative Negative See ord er comments Specific [place] Urine 1.025 1.005 - 1.025 See order comments Protein Urine Trace Neg-Trace mg/dL See order comments Ketones, Urine Negative Negative mg/dL See order comments Nitrite, Urine Negative Negative See o rder comments Leukocyte Esterase Urine Negative Negative See order comments RBC, Urine 0-2 0 - 2 /HPF See orde r comments WBC 0-5 0 - 5 /HPF See order comments Squamous Epithelial, Urine 0-2 0 - 2 /HPF See order comments Bacteria, Urine None Seen None Seen See order comments Hyaline Casts, Urine 0-2 0 - 2 /LPF See order comments Urine (Urine, Clean Catch) 03/24/2025 11:46 AM EDT 03/24/2025 11:46 AM EDT Terence Menendez MD LAB URINE ORDERABLES Final Re sult Performing Organization Address City/[facility]/ZIP Co de Phone [facility] See order comments [place] [address] * (ABNORMAL) Creatinine (03/24/2025 11:33 AM EDT) Creatinine Serum 1.97(H) 0.5 - 1.4 mg/dL See order comments eGFR 37 See order comments Comment: Chronic Kidney Disease: ??Estimated GFR < 60 mL/min/1.73m2 Severe Kidney Disease: ??Estimated GFR < 15 mL/min/1.73m2 03/24/2025 11:3 3 AM EDT 03/24/2025 11:33 AM EDT Terence Menendez MD LAB BLOOD ORDERABLES Final Re sult Performing Organization Address City/[facility]/ZIP Co de Phone Number [place] See order comments [place] [address] * (ABNORMAL) PTH, Intact (03/24/2025 11:33 AM EDT) Parathyroid Hormone, Intact 427.5(H) 8.7 - 77.1 pg/mL See order comments 03/24/2025 11:3 3 AM EDT 03/24/2025 11:33 AM EDT us Terence Menendez MD LAB [id number] SOLICITED RESULTS Final Result [place] See order comments [place] [address] * (ABNORMAL) Vitamin D 25 Hydroxy (03/24/2025 11:33 AM EDT) Vitamin D, 25-Hydroxy 17.8(L) >30 ng/mL See order comments Comment: Health Based Reference Values* < 20 ??ng/mL ??Deficient 20-30 ng/mL ??Insufficient > 30 ??ng/mL ??Sufficient *Marin PIPER. N Engl J Med. 2007;[id number]:266-280 There is no well-established upper level of normal vitamin D levels. Some laboratories use 50 ng/mL as an upper limit of normal. However, toxicity is patient-dependent and may occur at any level. Careful correlation with the patient's presentation is necessary and, if there is concern for vitamin D toxicity, treatment should be considered irrespective of the serum level. Care must be taken in interpreting Vitamin D results from different laboratories and methodologies. ??Published data demonstrated that results from patients undergoing hemodialysis may show a negative bias when tested with various automated 25-OH vitamin D assays when compared to LC-MS/MS. When testing samples from patients whose predominant form of Vitamin D is Vitamin D2, such as patients receiving Vitamin D2 supplementation, results that are subtherapeutic should be confirmed with another method such as LC-MS/MS. Blood (Blood, Venous) 03/24/2025 11:33 AM EDT 03/24/2025 11:33 AM EDT us Terence Menendez MD LAB BLOOD ORDERABLES Final Re sult [place] See order comments [place] [address] * CBC and Differential (03/24/2025 11:33 AM [...] order comments [place] [address] * (ABNORMAL) BUN (03/24/2025 11:33 AM EDT) BUN 25(H) 9 - 16 mg/dL See order comments 03/24/2025 11:3 3 AM EDT 03/24/2025 11:33 AM EDT Terence Menendez MD LAB BLOOD ORDERABLES Final Re sult Performing Organization Address [facility] Co de Phone Number [place] See order comments [place] [address] * Phosphorus (03/24/2025 11:33 AM EDT) Phosphorus, Serum 3.2 2.7 - 4.5 mg/dL See order comments Blood (Blood, Venous) 03/24/2025 11:33 AM EDT 03/24/2025 11:33 AM EDT Terence Menendez MD LAB BLOOD ORDERABLES Final Re sult Performing Organization Address [facility] de Phone Number [place] See order comments [place] [address] * Magnesium (03/24/2025 11:33 AM EDT) Magnesium 2.0 1.6 - 2.6 mg/dL See order comments Blood (Blood, Venous) 03/24/2025 11:33 AM EDT 03/24/2025 11:33 AM EDT Terence Menendez MD LAB BLOOD ORDERABLES Final Re sult Performing Organization Address [facility] de Phone Number [place] See order comments [place] [address] * Calcium (03/24/2025 11:33 AM EDT) Calcium 9.0 8.4 - 10.2 mg/dL See order comments Blood (Blood, Venous) 03/24/2025 11:33 AM EDT 03/24/2025 11:33 AM EDT Terence Menendez MD LAB BLOOD ORDERABLES Final Re sult Performing Organization Address [facility] Co de Phone Number [place] See order comments [place] [address] * Albumin (03/24/2025 11:33 AM EDT) Albumin 4.3 3.5 - 5.0 g/dL See order comments Blood (Blood, Venous) 03/24/2025 11:33 AM EDT 03/24/2025 11:33 AM EDT Terence Menendez MD LAB BLOOD ORDERABLES Final Re sult [facility] See order comments [place] [address] * Electrolyte panel (03/24/2025 11:33 AM EDT) [...] 11:33 AM EDT Terence Menendez MD LAB BLOOD ORDERABLES Final Re sult [place] See order comments [place] [address] * (ABNORMAL) ALT EXT LABS (03/11/2025) Hemoglobin A1C 9.5(A) 4.0 - 6.0 03/11/2025 us Historical Provider LAB BLOOD ORDERABLES Indira l Result from Last 3 Months Care Teams Dental Front Office Assistant Relationship Specialty Start Date End Date Broderick Power NP [address] [place] [address] PCP - General Nurse Practitioner 08/23/23
== END 2025-03-24 11:20 | disposition home or self-care (01) ==
LOC: HO.LAB 11:19
PROVIDERS: PCP Nurse Practitioner Family; Visit Provider Internal Medicine Nephrology
DX: N18.32 Chronic kidney disease, stage 3b (principal); E11.21 Type 2 diabetes mellitus with diabetic nephropathy
CPT/HCPCS: 36415; 80051; 81001; 82040; 82043; 82306; 82310; 82565; 82570; 83735; 83970; 84100; 84156; 84520; 85025

== ENCOUNTER 2025-04-07 08:49 | Outpatient (AMB) | payer BC, SELFPAY ==
[2025-04-07 08:55] VITALS: BP 132/86; PULSE 75; O2SAT 96; BMI 32.0
--- NOTE | 2025-04-07 08:55 | A.OFFVIS_ITS ---
Vital Signs 04/07/25 08:55 Height 5 ft 6 in Weight 198 lb 4 oz BMI 32.0 BP 132/86 Blood Pressure Location Lt brachial Position Sitting Pulse 75 Pulse Source Pulse Oximeter Pulse Oximetry (%) 96 Oxygen Delivery Method Room Air Intake Visit Reasons: 3m follow up Sleep deprivation Intake Note: Patient presents follow up sleep. Compliance in chart( days, >=4hrs-4days, Median pressure-7.5, Median leaks-17.4, AHI-2.6). Patient state does nto take sumatriptan due to having side effects. Patient needs supplies. has not been compliant due to broken hose. Allergies environmental allergies Allergy (Unknown, Verified 04/07/25 09:02) Itching lumgivey Allergy (Intermediate, Uncoded 04/07/25 09:02) Itching HPI Comments Details: 49 y/o male patient with CKD stage 3 presents for follow up of YISEL on CPAP. The home sleep study result was significant for mild to moderate degree of sleep apnea. The total AHI was 15/hr and oxygen rashmi was 82%. The average O2 sat was 94%, and O2 sat below 88% for 2 min. Pt started APAP [id number], and had some difficulty with the mask, unable to tolerate initially, however did have more refreshed sleep with the cpap. When he does not use the cpap machine he continually has a heavy feeling in his chest, now better controlled with metoprolol. He breathes heavier and it takes him a little while to calm down and fall asleep with the mask. The sound of the air makes him hyper-focus on the machine, he is using a white noise machine to acclimate to the device. He says the hose had a plastic sarbjit smell and thus he discontinued using it. We discussed the importance of compliance today as applicable for his health outcomes. He is aware of cleaning the mask daily, washing the hoses daily and changing water and filters. Denies parasomnias, does talk in sleep, he does snore loudly, denies grinding his teeth, occasional morning headaches but not too bothersome. Sometimes he will get migraines, and notices cigarette smoke to be a trigger. He also notices vertigo, when moving his head back and forth. 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 RLS symptoms: He has the urge to move his legs at night especially the knee, he has an uncomfortable sensation which keeps him from falling asleep. He denies tingling, pins, needles, and cramps. His memory and mood are stable. His mother and father had Alzheimers dementia at 70 years old. 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 We also reviewed his labs today and emphasized once again the importance of taking his vit d and managing overall diabetes better as A1c is 9.5 and was recently seen by Renal transplant for a consult. 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 Cognitive needs: No Hearing needs: No Vision needs: No Physical Exam Vital Signs: Last Vital Signs Pulse 75 04/07/25 08:55 BP 132/86 04/07/25 08:55 Pulse Ox 96 04/07/25 08:55 Oxygen Delivery Method Room Air 04/07/25 08:55 BMI result Body Mass Index 32.0 Const General: cooperative and comfortable Nutritional Appearance: overweight Orientation/consciousness: patient oriented x3 HEENT Teeth and gingiva: other (mallampti score of 3) Eyes Pupils: Equal, round and reactive pupils present Resp Effort & Inspection: normal respiratory effort and able to speak in complete sentences Neuro General: patient oriented x3 and moves all extremities Cranial nerves: Yes Equal, round and reactive pupils present, Yes Normal accommodation reflex present, Yes Normal facial strength present, Yes Midline tongue present, Yes Ability to bilaterally rotate head present, Yes Ability to b ilaterally elevate shoulders present and Yes Other cranial nerve findings present (vertigo with extension of neck.) Gait exam (Neuro): Other gait observations present (balance difficulties on toe to heel exam) Motor exam (neuro): 5/5 motor strength present throughout Deep tendon reflexes (DTR's): Right triceps reflex intensity grade: 2+, Left triceps reflex intensity grade: 2+, Rt Biceps (C5, C6): 2+, Left biceps reflex intensity grade: 2+, Right brachioradialis reflex intensity grade: 2+, Left brachioradialis reflex intensity grade: 2+, Right patellar reflex intensity grade: 2+, Left patellar reflex intensity grade: 2+, Right ankle reflex intensity grade: 2+ and Left ankle reflex intensity grade: 2+ Coordination: [id number] test normal and tandem gait normal (abnormal tandem walking) Psych Appearance: grossly normal Results Reviewed Results Reviewed: compliance report not available Renal consult 04/02/2025 ckd stage 3b. Labs reviewed with patient Assessment & Plan Assessment & Plan (1) YISEL on CPAP: Comment: Mild to moderate degree of sleep apnea. The AHI was 15/hr and oxygen rashmi was 82%. The patient has been started on CPAP therapy and he is being followed by the Sleep Medicine Service. Code(s): G47.33 - Obstructive sleep apnea (adult) (pediatric); Z99.89 - Dependence on other enabling machines and devices Category: Medical (2) Daytime sleepiness: Code(s): R40.0 - Somnolence Category: Medical (3) Vertigo of central origin: Code(s): H81.4 - Vertigo of central origin Category: Medical (4) Low vitamin D level: Code(s): R79.89 - Other specified abnormal findings of blood chemistry Category: Medical Plan YISEL Cpap use is emphasized today as patient continues to have poor sleep, and heavy feeling in chest when not using cpap. New order for supplies, hoses, masks sent to [facility] today, as his hose is broken, and unable to use cpap properly. RLS use magnilife topically for symptoms. PT Vertigo and gait issues, difficulty with tandem gait. Reviewed labs with patient today, HgA1c is 9.5, and vitamin D is low, he has CKD stage 3b, consulted for renal transplant 03/2025. Stressed the importanct of compliance and use of CPAP nightly and more than 4 hours at the minimum. Discussed washing the mask daily, cleansing and rinsing drying hoses daily, changing out filters, and filling his machine with distilled water as needed. Will f/u in 3 months for compliance. Orders: Orders PT Evaluation and Treatment Today H81.4 - Vertigo of central origin Medications: New cholecalciferol (vitamin D3) 125 mcg PO DAILY 30 caps 0RF low vitamin d MDD 125mcg R79.89 - Other specified abnormal findings of blood chemistry Patient Instructions: Sleep Hygiene provided: set a scheduled bedtime and wake time to help regulate the circadian rhythm and balance the release of pituitary hormones. Sleep in a dark room, temperatures below 68 degrees, and no devices n bed. Limit caffeinated products 6 hours prior to bed, and limit fluids 2-4 hours prior to bed. Gentle night yoga, diffusing essential oils, and playing soft music can be relaxing. Coding Level of Care Code Est Pt Level 4 (67176) Diagnoses YISEL on CPAP G47.33; Z99.89 Daytime sleepiness R40.0 Vertigo of central origin H81.4 Low vitamin D level R79.89 Time Spent (min) 35
--- OUTSIDE RECORDS SUMMARY | 2025-04-07 09:07 | XMS_ITS | Clinical Summary ---
Author Organization [facility] Address [address] [place] [phone] Phone Care Team Providers Care Industrial Spraypainter Name Role Phone Broderick Power NP Primary Care Provider [phone] Allergies No known active allergies Medications levothyroxine (SYNTHROID, LEVOTHROID) 88 MCG tablet Take 112 mcg by mouth 1 (one) time each day Active cyanocobalamin (VITAMIN B-12) 1000 MCG tablet Take 1 tablet by mouth 1 (one) time each day Active citalopram (CeleXA) 20 MG tablet Take 20 mg by mouth 1 (one) time each day 021 Active Dapagliflozin Propanediol (Farxiga) 10 MG [...] THE MORNING 90 tablet 3 025 Active calcitriol (ROCALTROL) 0.25 MCG capsule Take 1 capsule (0.25 mcg total) by mouth 1 (one) time each day 90 capsule 3 025 2025 Active Cholecalcifero l 50 MCG (2000 UT) capsule Take 1 capsule by mouth 1 (one) time each day 90 capsule 2 025 2025 Active Cholecalcifero l 50 MCG (2000 UT) capsule Take 1 capsule by mouth 1 (one) time each day 2024 Discontinued(R eorder (does not appear on AVS)) calcitriol (ROCALTROL) 0.25 MCG capsule Take 1 capsule (0.25 mcg total) by mouth every other day 45 capsule 2 021 2024 Discontinued Farxiga 10 MG tablet TAKE 1 TABLET [...] Encounters Date Type Department Care Team Description 03/30/2025 10:30 AM EDT Office Visit [facility] [address] [phone] Terence Menendez MD Stage 3b chronic kidney disease (HCC) (Primary Dx); Renal osteodystrophy; Renal disorder due to type 2 diabetes mellitus <Diabetic nephropathy> (HCC) 03/24/2025 Orders Only [facility] [place] [id number] [facility] [address] [place] [phone] Terence Menendez MD 03/23/2025 Refill [facility] [place] [address] [place] [address] [place] [phone] Terence Menendez MD 02/24/2025 Orders Only [facility] [place] [id number] [facility] [address] [place] [phone] Terence Menendez MD Stage 3b chronic kidney [...] Sign Reading Time Taken Comments Blood Pressure 138/79 03/30/2025 10:32 AM EDT Pulse 77 03/30/2025 10:32 AM EDT Temperature - - Respiratory Rate - - Oxygen Saturation 98% 03/30/2025 10: 32 AM EDT Inhaled Oxygen Concentration - - Weight 89.3 kg (196 lb 12.8 oz) 025 10:32 AM EDT Height 167.6 cm (5' 6 ) 11/24/2019 12:0 0 PM EST Body Mass Index 31.76 11/24/2019 12:00 PM EST Plan of Treatment Upcoming Encounters Date Type Department Care Team (Late st Contact Info) Description 09/28/2025 10:00 AM EST Office Visit [facility] [address] [address] Terence Menendez MD [address] [address] Health Maintenance Due Date Last Done Comments [...] 11:46 AM EDT 03/24/2025 11:46 AM EDT us Terecne Menendez MD LAB URINE ORDERABLES Final Re sult [place] See order comments [place] [address] * (ABNORMAL) Albumin, urine, random (03/24/2025 11:46 [...] ORDERABLES Final Re sult Performing Organization Address [facility] de Phone Number [place] See order comments [place] [address] * (ABNORMAL) Urinalysis with microscopic (03/24/2025 11:46 AM EDT) Color Urine Yellow See orde r comments Appearance Urine Clear See order comments pH Urine 6.0 5.0 - 9.0 See order comments Glucose Urine >=1000(A) Negative mg/dL See order comments Blood, Urine Negative Negative See ord er comments Specific [place] Urine 1.025 1.005 - 1.025 See order [...] ORDERABLES Final Re sult Performing Organization Address [facility] Co de Phone Number [place] See order comments [place] [address] * (ABNORMAL) Creatinine (03/24/2025 11:33 AM EDT) Creatinine Serum 1.97(H) 0.5 - 1.4 mg/dL See order comments eGFR (Calc) 37 See orde r comments Comment: Chronic Kidney Disease: ??Estimated GFR < 60 mL/min/1.73m2 Severe Kidney Disease: ??Estimated GFR < 15 mL/min/1.73m2 03/24/2025 11:3 3 AM EDT 03/24/2025 11:33 AM EDT us Terence Menendez MD LAB BLOOD ORDERABLES Final Re sult [place] See order comments [place] [address] * (ABNORMAL) PTH, Intact (03/24/2025 11:33 AM EDT) Parathyroid Hormone, Intact 427.5(H) 8.7 - 77.1 pg/mL See order comments 03/24/2025 11:3 3 AM EDT 03/24/2025 11:33 AM EDT us Terence Menendez MD LAB [id number] SOLICITED RESULTS Final Result Performing Organization Address [facility] de Phone Number [place] See order comments [place] [address] * (ABNORMAL) Vitamin D 25 Hydroxy (03/24/2025 [...] MD LAB BLOOD ORDERABLES Final Re sult [place] See order comments [place] [address] * CBC and Differential (03/24/2025 11:33 AM [...] ORDERABLES Final Re sult Performing Organization Address [facility] de Phone Number [place] See order comments [place] [address] * (ABNORMAL) BUN (03/24/2025 11:33 AM EDT) BUN 25(H) 9 - 16 mg/dL See order comments 03/24/2025 11:3 3 AM EDT 03/24/2025 11:33 AM EDT Terence Menendez MD LAB BLOOD ORDERABLES Final Re sult Performing Organization Address [facility] de Phone Number [place] See order comments [place] [address] * Phosphorus (03/24/2025 11:33 AM EDT) Phosphorus, Serum 3.2 2.7 - 4.5 mg/dL See order comments Blood (Blood, Venous) 03/24/2025 11:33 AM EDT 03/24/2025 11:33 AM EDT us Terence Menendez MD LAB BLOOD ORDERABLES Final Re sult Performing Organization Address [facility] de Phone Number [place] See order comments [place] [address] * Magnesium (03/24/2025 11:33 AM EDT) Magnesium 2.0 1.6 - 2.6 mg/dL See order comments Blood (Blood, Venous) 03/24/2025 11:33 AM EDT 03/24/2025 11:33 AM EDT us Terence Menendez MD LAB BLOOD ORDERABLES Final Re sult Performing Organization Address [facility] de Phone Number [place] See order comments [place] [address] * Calcium (03/24/2025 11:33 AM EDT) Calcium 9.0 8.4 - 10.2 mg/dL See order comments Blood (Blood, Venous) 03/24/2025 11:33 AM EDT 03/24/2025 11:33 AM EDT us Terence Menendez MD LAB BLOOD ORDERABLES Final Re sult Performing Organization Address [facility] de Phone Number [place] See order comments [place] [address] * Albumin (03/24/2025 11:33 AM EDT) Albumin 4.3 3.5 - 5.0 g/dL See order comments Blood (Blood, Venous) 03/24/2025 11:33 AM EDT 03/24/2025 11:33 AM EDT us Terence Menendez MD LAB BLOOD ORDERABLES Final Re sult Performing Organization Address [facility] de Phone Number [place] See order comments [place] [address] * Electrolyte panel (03/24/2025 11:33 AM EDT) [...] order comments [place] [address] * (ABNORMAL) ALT EXT LABS (03/11/2025) Hemoglobin A1C 9.5(A) 4.0 - 6.0 03/11/2025 Historical Provider LAB BLOOD ORDERABLES Indira l Result from Last 3 [place] [address] [facility] Care Teams Industrial Spraypainter Relationship Specialty Start Date End Date Broderick Power NP 1959 [facility] ERIC GOFF [phone] PCP - General Nurse Practitioner 08/23/23
--- OUTSIDE RECORDS SUMMARY | 2025-04-07 09:07 | XMS_ITS | Encounter Summary ---
Author Organization [facility] Address [address] [facility] [address] [place] [address] Phone Care Team Providers Care Steam And Power Supervisor Name Role Phone Dorethaabbey Broderick LOTTIE Primary Care Provider [phone] Encounter Details Date Type Department Care Team (Late st Contact Info) Description 09/20/2022 Telephone [facility] [address] [place] [place] [address] Terence Menendez MD [address] [facility] [address] [place] [address] Social History Tobacco Use Types [...] his kidneys. Please advise Thank you CB# [phone] documented in this encounter Plan of Treatment Upcoming Encounters Date Type Department Care Team (Late st Contact Info) Description 09/28/2025 10:00 AM EST [facility] [address] [address] Terence Menendez MD [address] [address] documented as of this encounter Visit Diagnoses Not on filedocumented in this encounter Care Teams Steam And Power Supervisor Relationship Specialty Start Date End Date Broderick Power [place] [address] PCP - General Nurse Practitioner 08/23/23 documented as of this encounter
== END 2025-04-07 09:47 | disposition home or self-care (01) ==
LOC: HO.HSMS 08:49
PROVIDERS: PCP Nurse Practitioner Family; Visit Provider Physician Assistant Medical
DX: G47.33 Obstructive sleep apnea (adult) (pediatric) (principal); Z99.89 Dependence on other enabling machines and devices; R40.0 Somnolence; H81.4 Vertigo of central origin; R79.89 Other specified abnormal findings of blood chemistry
CPT/HCPCS: 99214

== ENCOUNTER → 2025-04-07 08:49 | Outpatient (BNVA) | payer BC, SELFPAY | PROVIDERS: PCP Nurse Practitioner Family; Visit Provider Physician Assistant Medical ==

== ENCOUNTER 2025-07-09 11:22 | Outpatient (AMB) | payer BC, SELFPAY | END 2025-07-09 14:21 | disposition home or self-care (01) | LOC: HO.HMGAL 11:22 | PROVIDERS: PCP Nurse Practitioner Family; Visit Provider Registered Nurse Emergency | DX: J30.89 Other allergic rhinitis (principal) | CPT/HCPCS: 95117; 95165 ==

== ENCOUNTER 2025-07-14 08:42 | Outpatient (AMB) | payer BC, SELFPAY ==
--- OUTSIDE RECORDS SUMMARY | 2025-07-14 08:56 | XMS_ITS | Patient Health Record ---
Author Organization [facility] Address [address] [place] [address] Care Team Providers Care Community Health Education Coordinator Name Role Phone Ismael Pate M.D. Primary Care Provider Naheed mayatreyZeke Arias Unavailable [phone] Allergies Allergen (clinical drug ingredient) Drug/Non Drug Allergy documented on EMR Reaction Allergy Type Onset Date Status grass trees dust radha es (uncoded) Unknown Allergy Active Reason For Referral No Information Medications Medication SIG (Take, Route, Frequency, Duration) Notes Start Date End Date Status Pravastatin Sodium 20 MG 1 tablet Orally Once a day Active metFORMIN HCl ER 500 MG 1 tablet with ev ening meal Orally Once a day Active Citalopram Hydrobromide 20 MG 1 tablet Orally Once a day A ctive Vitamin D2 04136 1 tablet Orally Once a day Active buPROPion HCl 75 MG 1 tablets Orally Twi ce a day Active Ferrous Sulfate 325 (65 Fe) MG 1 tablet Orally QOD Active Lantus 100 UNIT/ML Subcutaneous Active Vitamin B12 1000 MCG 1 tablet Orally Once a day Active Problems Problem Type SNOMED Code ICD Code Onset Dates Problem Status W/U Status Risk Notes Problem [id number] Iron deficiency anemia, unspecified iron deficiency anemia type (D50.9) Active confirmed Plan Of Treatment Pending Test Test Name Order Date IRON + IBC (FE) 11/30/2016 FERRITIN 11/30/2016 CBC w DIFF 11/30/2016 CELIAC PANEL #10 11/30/2016 Insurance Providers Payer Name Payer Address Payer Phone Subscriber Number Group Number Insured Name Patient Relationship to Insured Coverage Start Date Coverage End Date [facility] [address] [place] [address] [id number] PATRICIA WATKINS Self - patient is the insured Medical (General) History Medical History History ICD Code IDDM Mild kidney insufficiency--Dr. Menendez Denies CT,CVA,Lung disease Depression/Anxiety Hyperlipidemia Lactose-intolerance Surgical History Surgery Date(Month/Year) Eyes- tighten muscle on lazy eye left 2 013
--- OUTSIDE RECORDS SUMMARY | 2025-07-14 08:56 | XMS_ITS | Clinical Summary ---
Author Organization [facility] Address [address] [facility] [address] [place] [phone] Phone Care Team Providers Care Metal Furniture Assembler Name Role Phone Unknown, Unknown Primary Care Provider Bre flynn Social History Tobacco Use Types Packs/Day Years Used Date Smoking Tobacco: Never Assessed Education Answer Date Recorded Are you interested in more education? Not on mary ann e 03/16/2023 Are you concerned about learning? Not on file 03/16/2023 No 03/16/2023 No 03/16/2023 Digital Access Answer Date Recorded No 04/13/2023 No 04/13/2023 Reliable internet access at home? Not on file 04/13/2023 Device with a working camera? Not on file Sex and Gender Information Value Date Recorded Sex Assigned at Not on file Legal Sex Male 9:26 PM EDT Gender Identity Not on file Sexual Orientation Not on file Last Filed Vital Signs Vital Sign Reading Time Taken Comments Blood Pressure 118/80 09/09/2013 8:57 AM EDT Pulse 88 09/09/2013 8:57 AM EDT Temperature - - Respiratory Rate - - Oxygen Saturation - - Inhaled Oxygen Concentration - - Weight 63.5 kg (140 lb) 09/09/2013 8:57 AM EDT Height - - Body Mass Index - - Plan of Treatment Health Maintenance Due Date Last Done Comments LIPID PANEL 1977 DEPRESSION SCREENING 1989 SMOKING Hx and SMOKELESS TOBACCO SCREENING 1990 HEPATITIS C SCREENING 1995 HIV ONE-TIME SCREENING (18-6 5 YEARS) 1995 Adult Td,Tdap Booster 01/18/2021 01/18/2011 COLOGUARD 2022 COLONOSCOPY 2022 COLORECTAL CANCER SCREENING 2022 FIT TEST 2022 FOBT 2022 SIGMOIDOSCOPY 2022 VIRTUAL COLONOSCOPY 2022 COVID-19 VACCINE (2023-2 5 season) 2024 12/30/2020, 12/09/2020 PNEUMOCOCCAL VACCINES (0-49 years) Aged Out 02/25/2009 No longer eligible b ased on patient's age to complete this topic HEPATITIS A VACCINES Aged Out No long er eligible based on patient's age to complete this topic HIB VACCINES Aged Out No longer eligi ble based on patient's age to complete this topic MENINGOCOCCAL VACCINES (ACWY) Aged Out No longer eligible based on patient's age to complete this topic MENINGOCOCCAL VACCINES (B) Aged Out N o longer eligible based on patient's age to complete this topic Medical Devices Not on file Insurance [employer] PPO [employer] PPO [facility] [employer] [facility] [employer] [facility] [employer] [facility] [employer] [facility] [employer] [facility] [employer] PPO [facility] [employer] PPO Care Teams Metal Furniture Assembler Relationship Specialty Start Date End Date Unknown, Unknown, PCP - General 10/22/17 Additional Source Comments The information contained in this document represents components of the legal health record. It is not the complete legal health record.[facility]
--- OUTSIDE RECORDS SUMMARY | 2025-07-14 08:57 | XMS_ITS | Encounter Summary ---
Author Organization [facility] Address [address] [facility] [address] [place] [address] Phone Care Team Providers Care Airplane Cabin Attendant Name Role Phone Tono Broderick LOTTIE Primary Care Provider [phone] Encounter Details Date Type Department Care Team (Late st Contact Info) Description 09/20/2022 Telephone [facility] [address] [place] [address] [place] [address] Terence Menendez MD [address] [facility] [address] [place] [address] Social History Tobacco Use Types [...] his kidneys. Please advise Thank you CB# [phone] documented in this encounter Plan of Treatment Upcoming Encounters Date Type Department Care Team (Late st Contact Info) Description 09/28/2025 10:00 AM EST [facility] [address] [address] Terence Menendez MD [address] [address] documented as of this encounter Visit Diagnoses Not on filedocumented in this encounter Care Teams Airplane Cabin Attendant Relationship Specialty Start Date End Date Broderick Power NP [facility] [place] [address] PCP - General Nurse Practitioner 08/23/23 documented as of this encounter
--- OUTSIDE RECORDS SUMMARY | 2025-07-14 08:57 | XMS_ITS | Clinical Summary ---
Author Organization [facility] Address [address] [place] [phone] Phone Care Team Providers Care Apartment Leasing Agent Name Role Phone Broderick Power NP Primary Care Provider [phone] Allergies No known active allergies Medications levothyroxine (SYNTHROID, LEVOTHROID) 88 MCG tablet Take 112 mcg by mouth 1 (one) time each day Active cyanocobalamin (VITAMIN B-12) 1000 MCG tablet Take 1 tablet by mouth 1 (one) time each day Active citalopram (CeleXA) 20 MG tablet Take 20 mg by mouth 1 (one) time each day 07/21/20 21 Active Dapagliflozin Propanediol (Farxiga) 10 MG tablet Take 10 mg by mouth 1 (one) time each day in the morning 90 tablet 3 09/20/20 22 Active atorvastatin (LIPITOR) 40 MG tablet 11/07/20 22 Active metoprolol succinate XL (TOPROL XL) 25 MG 24 hr tablet Take 25 mg by mouth 1 (one) time each day 05/03/20 23 Active losartan (COZAAR) 25 MG tablet TAKE 2 TABLETS(50 MG) BY MOUTH 1 TIME EACH DAY 90 tablet 11 08/18/20 24 Active Insulin Lispro 100 UNIT/ML solution INFUSE UP TO 75 UNITS PER DAY VIA INSULIN PUMP SUBCUTANEOUSLY 08/19/20 24 Active Finerenone (Kerendia) 10 MG tablet Take 10 mg by mouth in the morning. 90 tablet 1 09/26/20 24 025 Active Dapagliflozin Propanediol 10 MG tablet TAKE 1 TABLET BY MOUTH EVERY DAY IN THE MORNING 90 tablet 3 03/23/20 25 Active calcitriol (ROCALTROL) 0.25 MCG capsule Take 1 capsule (0.25 mcg total) by mouth 1 (one) time each day 90 capsule 3 03/30/20 25 026 Active Cholecalciferol 50 MCG (1999 UT) capsule Take 1 capsule by mouth 1 (one) time each day 90 capsule 2 03/30/20 25 026 Active Active Problems Problem Noted Date Diagnosed Date Obese class I 05/21/2023 Chronic kidney disease, stage 4 (severe) 023 Stage 3b chronic kidney disease 09/22/2021 Renal osteodystrophy 09/22/2021 Anemia 06/28/2021 Chronic kidney disease stage 3 06/28/2021 Renal disorder due to type 2 diabetes mellitus 0 06/28/2021 Family History Medical History Relation Comments Diabetes [...] [facility] [address] [phone] Terence Menendez MD [address] [phone] Health Maintenance Due Date Last Done Comments Hepatitis B Vaccine (1 of 3 - 19+ 3-dose series) 1996 Pneumococcal Vaccine: Peds ( 0 to 5 Years) and At-Risk Patients (6 to 49 Years) (1 of 2 - PCV) 1996 Diabetes: Ophthalmology Exam 12/20/2020 Diabetes: Pedal Pulse Checked 12/20/2020 Diabetes: Sensory Foot Exam 12/20/2020 Diabetes: Visual Foot Exam 12/20/2020 Diabetes: Hemoglobin A1C 06/10/2025 025, 11/08/2022, 10/20/2020 Influenza Vaccine (#1) 2025 Procedures Procedure Name Priority Date/Time Associated Diagnosis Comments ALT EXT LABS Routine 03/11/2025 from Last 3 Months or Most Recently Relevant to Health Maintenance Results * (ABNORMAL) ALT EXT LABS (03/11/2025) Hemoglobin A1C 9.5(A) 4.0 - 6.0 03/11/2025 us Historical Provider LAB BLOOD ORDERABLES Indira l Result from Last 3 Months or Most Recently Relevant to Health Maintenance Insurance [facility] Care Teams Apartment Leasing Agent Relationship Specialty Start Date End Date Broderick Power NP 1959 [facility] [place] [address] PCP - General Nurse Practitioner 08/23/23
--- NOTE | 2025-07-14 09:04 | MHC.OFFVIS ---
Vital Signs 07/14/25 09:05 Height 5 ft 6 in Weight 198 lb 8 oz BMI 32.0 BP 130/88 Blood Pressure Location Rt brachial Position Sitting Pulse 77 Pulse Source Pulse Oximeter Pulse Oximetry (%) 97 Oxygen Delivery Method Room Air Intake Visit Reasons: 3m follow up Intake Note: Patient presents follow up YISEL. Compliance in chart(days, >=4hrs-3%, Average usage-26min, Med pressure 7.9, Med Leaks-11.7, AHI-4.2). Wakes up sometimes at night and cant breath and gets scared and wont use for few nights.( has changed settings and seems to help) Allergies environmental allergies Allergy (Unknown, Verified 07/14/25 09:08) Itching lumgivey Allergy (Intermediate, Uncoded 04/07/25 09:02) Itching HPI Comments Details: 50 y/o male patient with CKD stage 3 presents for follow up of YISEL on CPAP. HST c/w AHI of 15/hr and oxygen nadirs to 82%. YISEL Compliance Report 03/2025-06/2025, reviewed with patient Total usage days and >=4hrs-3%, Average usage-26min. Med pressure 7.9, Med Leaks-11.7, AHI-4.2/hr Washes his mask, rinses hoses, changes filters and fills reservoir daily. He continues to wake up at night and can't breath and gets scared then wont use it for a few nights. He changed the settings on his machine and seems to think it helps, though the AHI increased from 2.1 last quarter to 4.2/hr, declines titration study and continues to be non compliant, he is interested in the INspire therapy as his allergies make using the cpap more challenging. He has allergies and headaches lasting 3 days, he takes Excedrin otc and it works to help alleviate the pain but the headache does not go away completely. Declines meds today, allergy shots every 3 monhts w/ Dr. Walsh [facility] [address] He tried several mask and was not able to tolerate the cpap. His BP is better controlled now. The sound of the air makes him hyper-focus on the machine, he is using a white noise machine to acclimate to the device. We discussed the importance of compliance once again and reviewed his sleep study. He grinds his teeth, clenches his jaws, talks in his sleep. Denies RLS symptoms today, denies paresthesias, numbness, tingling, pins and needles. His memory and mood are stable. FH + alzheimers dementia. Provided significant education tody re: Sleep apnea and cardiovascular co-morbidities. Labs reviewed with patient and he has CKD, managing T2DM and taking vit d daily. 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 Paternal Grandmother Mental health disorder Social History Housing: House Alcohol intake: current Alcohol intake frequency: holidays/special occasions only Patient Tobacco Use Status: Never used Tobacco e-Cigarette/Vaping Use: Never Used Second Hand Smoke Exposure: No (not very often ) service: No Current occupational status: employed Current occupation: [employer] Cognitive needs: No Hearing needs: No Vision needs: No Physical Exam Vital Signs: Last Vital Signs Pulse 77 07/14/25 09:05 BP 130/88 07/14/25 09:05 Pulse Ox 97 07/14/25 09:05 Oxygen Delivery Method Room Air 07/14/25 09:05 BMI result Body Mass Index 32.0 Const General: cooperative and comfortable Nutritional Appearance: overweight Orientation/consciousness: patient oriented x3 HEENT Teeth and gingiva: other (mallampti score of 3) Eyes Pupils: Equal, round and reactive pupils present Resp Effort & Inspection: normal respiratory effort and able to speak in complete sentences Neuro General: patient oriented x3 and moves all extremities Cranial nerves: Yes Equal, round and reactive pupils present, Yes Normal accommodation reflex present, Yes Normal facial strength present, Yes Midline tongue present, Yes Ability to bilaterally rotate head present, Yes Ability to bilaterally elevate shoulders present and Yes Other cranial nerve findings present (vertigo with extension of neck.) Gait exam (Neuro): Other gait observations present (balance difficulties on toe to heel exam) Motor exam (neuro): 5/5 motor strength present throughout Psych Appearance: grossly normal Assessment & Plan Assessment & Plan (1) YISEL on CPAP: Comment: Mild to moderate degree of sleep apnea. The AHI was 15/hr and oxygen rashmi was 82%. The patient has been started on CPAP therapy and he is being followed by the Sleep Medicine Service. Code(s): G47.33 - Obstructive sleep apnea (adult) (pediatric); Z99.89 - Dependence on other enabling machines and devices Category: Medical (2) Daytime sleepiness: Code(s): R40.0 - Somnolence Category: Medical (3) Snoring: Code(s): R06.83 - Snoring Category: Medical (4) SOB (shortness of breath) on exertion: Comment: SHORTNESS OF BREATH ON EXERTION IS NONSPECIFIC, MOST LIKELY RELATED TO HIS OBESITY AND SOME DECONDITIONING. PATIENT EXPLAINED AND ADVISED THAT HE SHOULD TRY TO LOSE SOME WEIGHT. THE USE OF BRONCHODILATOR INHALERS WOULD NOT BE HELPFUL. 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 Headaches may continue to take otc excederin as this helps. Pt. decline Sumatriptan. May use a migraine cap and peppermint oil on the temples if hollistic method is preferred. 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 BMI is elevated, CKD being managed by his pcp. Orders: Referrals Ear/Nose/Throat Referral G47.30 - Sleep apnea, unspecified, G47.33 - Obstructive sleep apnea (adult) (pediatric), Z99.89 - Dependence on other enabling machines and devices Patient Instructions: Sleep Hygiene provided: set a scheduled bedtime and wake time to help regulate the circadian rhythm and balance the release of pituitary hormones. Sleep in a dark room, temperatures below 68 degrees, and no devices n bed. Limit caffeinated products 6 hours prior to bed, and limit fluids 2-4 hours prior to bed. Gentle night yoga, diffusing essential oils, and playing soft music can be relaxing. Declines Melatonin, and Sumatriptan. Will refer to sleep dentistry in the future if amenable. Coding Level of Care Code Est Pt Level 4 (14042) Diagnoses YISEL on CPAP G47.33; Z99.89 Daytime sleepiness R40.0 Snoring R06.83 SOB (shortness of breath) on exertion R06.02 Bruxism, sleep-related G47.63
[2025-07-14 09:05] VITALS: BP 130/88; PULSE 77; O2SAT 97; BMI 32.0
== END 2025-07-14 09:41 | disposition home or self-care (01) ==
LOC: HO.HSMS 08:43
PROVIDERS: PCP Nurse Practitioner Family; Visit Provider Physician Assistant Medical
DX: G47.33 Obstructive sleep apnea (adult) (pediatric) (principal); Z99.89 Dependence on other enabling machines and devices; R40.0 Somnolence; R06.83 Snoring; R06.02 Shortness of breath; G47.63 Sleep related bruxism
CPT/HCPCS: 99214

== ENCOUNTER 2025-09-02 11:19 | Outpatient (AMB) | payer BC, SELFPAY ==
--- OUTSIDE RECORDS SUMMARY | 2025-09-02 14:02 | XMS_ITS | Clinical Summary ---
Author Organization [facility] Address [address] [place] [address] Care Team Providers Care Track Patrol Name Role Phone Unavailable Primary Care Provider Unavailabl e Encounters Date Type Department Care Team Description 07/22/2025 Documentation [facility] [place] [address] [place] [address] [place] [address] Daniel Kirk MD 07/17/2025 Transcribe Orders [facility] NEUROLOGY SCAN System, Provider Not In Obstructive sleep apnea (adult) (pediatric) (Primary Dx) from Last 3 Months Social History Tobacco Use Types Packs/Day Years Used Date Smoking Tobacco: Never Assessed Sex and Gender Information Value Date Recorded Sex Assigned at Not on file Legal Sex Male 11:22 AM EDT Gender Identity Not on file Sexual Orientation Not on file Plan of Treatment Health Maintenance Due Date Last Done Comments Hepatitis C Virus Screening 1977 HIV Screening 1990 DTaP/Tdap/Td Vaccines (1 - Tdap) 1996 Hepatitis B Vaccines (1 of 3 - 19+ 3-dose series) 1996 Colonoscopy 2022 Influenza Vaccine 06/19/2025 COVID-19 Vaccine (1 - 2023-2 5 season) 2025 Pneumococcal Vaccine: Pediat ariela (0-5 Years) and At-Risk Patients (6 to 49 Years) Aged Out No longer eligible b ased on patient's age to complete this topic Insurance BLUE CROSS OUT OF STATE - PPO
--- OUTSIDE RECORDS SUMMARY | 2025-09-02 14:02 | XMS_ITS | Clinical Summary ---
Author Organization [facility] Address [address] [place] [address] Phone Care Team Providers Care Reserve Operator Name Role Phone Unknown, Unknown Primary Care [...] HEPATITIS C SCREENING 1995 HIV ONE-TIME SCREENING (18-65 YEARS) 1995 Adult Td,Tdap Booster 01/18/2021 01/18/2011 COLOGUARD 2022 COLONOSCOPY 2022 COLORECTAL CANCER SCREENING 2022 FIT TEST 2022 FOBT 2022 SIGMOIDOSCOPY 2022 VIRTUAL COLONOSCOPY 2022 INFLUENZA VACCINE (#1) 2025 9, 08/03/2018, 07/20/2017, Additional history exists COVID-19 VACCINE ( season) 2025 12/30/2020, 12/09/2020 PNEUMOCOCCAL VACCINES (0-49 years) Aged Out 02/25/2009 No longer eligible based on patient's age [...] topic Medical Devices Not on file Insurance [place] [employer] PPO [place] [employer] PPO [place] [employer] PASSPORT PPO [place] [employer]ORT PPO [place] [employer] PASSPORT PPO [facility] [employer] PASSPORT PPO [facility] [employer] PASSPORT PPO [employer] PASSPORT PPO [facility] PASSPORT PPO Care Teams Reserve Operator Relationship Specialty Start Date End Date Unknown, Unknown, PCP - General 10/22/17 Additional Source Comments The information contained in this document represents components of the legal health record. It is not the complete legal health record.[facility]
--- OUTSIDE RECORDS SUMMARY | 2025-09-02 14:02 | XMS_ITS ---
Author Name [facility] Organization Unknown Problems Problem Status Onset Date Problem Type Date of Resoluti on Source Obstructive sleep apnea (adult) (pediatric) active EncounterDiagnosisAct CCT
--- OUTSIDE RECORDS SUMMARY | 2025-09-02 14:02 | XMS_ITS | Patient Health Record ---
Author Organization [facility] Address [address] [place] [address] Care Team Providers Care Senior Sales Compensation Analyst Name Role Phone Ismael Pate M.D. Primary Care Provider Naheed mayatreyZeke Arias Unavailable [phone] Allergies Allergen (clinical drug ingredient) Drug/Non Drug [...] Once a day A ctive Vitamin D2 63805 1 tablet Orally Once a day Active buPROPion HCl 75 MG 1 tablets Orally Twi ce a day Active Ferrous Sulfate 325 (65 Fe) MG 1 tablet Orally QOD Active Lantus 100 UNIT/ML Subcutaneous Active Vitamin B12 1000 MCG 1 tablet Orally Once a day Active Problems Problem Type SNOMED Code ICD Code Onset Dates Problem Status W/U Status Risk Notes Problem Iron deficiency anemia (32660096) Iron deficiency anemia, unspecified iron deficiency anemia type (D50.9) Active confirmed Plan Of Treatment Pending Test Test Name Order Date IRON + IBC (FE) 11/30/2016 FERRITIN 11/30/2016 CBC w DIFF 11/30/2016 CELIAC PANEL #10 11/30/2016 Insurance Providers Payer Name Payer Address Payer Phone Subscriber Number Group Number Insured Name Patient Relationship to Insured Coverage Start Date Coverage End Date [facility] [address] [place] [address] [id number] PATRICIA WATKINS Self - patient is the insured Medical (General) History Medical History History ICD Code IDDM Mild kidney insufficiency--Dr. Menendez Denies [place],CVA,Lung disease Depression/Anxiety Hyperlipidemia Lactose-intolerance Surgical History Surgery Date(Month/Year) Eyes- tighten muscle on lazy eye left 2 013
== END 2025-09-02 11:19 | disposition home or self-care (01) ==
LOC: HO.HMGAL 11:19
PROVIDERS: PCP Nurse Practitioner Family; Visit Provider Registered Nurse Emergency
DX: J30.89 Other allergic rhinitis (principal)
CPT/HCPCS: 95117; 95165

== ENCOUNTER 2025-09-30 10:22 | Outpatient (AMB) | payer BC, SELFPAY ==
--- OUTSIDE RECORDS SUMMARY | 2025-09-30 12:18 | XMS_ITS | Clinical Summary ---
Author Organization [facility] Address [address] [place] [address] Phone Care Team Providers Care Micro Computer Data Processor Name Role Phone Broderick Power NP Primary Care Provider [phone] Allergies No known active allergies Medications levothyroxine [...] VIA INSULIN PUMP SUBCUTANEOUSLY 08/19/20 24 Active Dapagliflozin Propanediol 10 MG tablet TAKE 1 TABLET BY MOUTH EVERY DAY IN THE MORNING 90 tablet 3 03/23/20 25 Active calcitriol (ROCALTROL) 0.25 MCG capsule Take 1 capsule (0.25 mcg total) by mouth 1 (one) time each day 90 capsule 3 03/30/20 25 026 Active Cholecalciferol 50 MCG (1999) capsule Take 1 capsule by mouth 1 (one) time each day 90 capsule 2 03/30/20 25 026 Active Finerenone (Kerendia) 10 MG tablet Take 10 mg by mouth in the morning. 90 tablet 1 09/26/20 24 025 Active Problems Problem Noted Date Diagnosed Date Iron deficiency anemia 09/25/2025 Chronic kidney disease, stage 4 (severe) 023 Stage 3b chronic kidney disease 09/22/2021 Renal osteodystrophy 09/22/2021 Chronic kidney disease stage 3 06/28/2021 Renal [...] Care Team (Late st Contact Info) Description 10/02/2025 11:00 AM EST Office Visit [facility] [address] [address] Terence Menendez MD [address] [phone] Health Maintenance Due Date Last Done Comments [...] Most Recently Relevant [place] [id number] [facility] Care Teams Micro Computer Data Processor Relationship Specialty Start Date End Date Broderick Power NP [address] [place] [address] PCP - General Nurse Practitioner 08/23/23
--- OUTSIDE RECORDS SUMMARY | 2025-09-30 12:18 | XMS_ITS | Clinical Summary ---
Author Organization [facility] Address [address] [place] [address] Phone Care Team Providers Care Commercial Front Load Driver Name Role Phone Unknown, Unknown Primary Care [...] on patient's age to complete this topic IPV VACCINES Aged Out No longer eligi ble based on patient's age to complete this topic MENINGOCOCCAL VACCINES (ACWY) Aged Out No longer eligible based on patient's age to complete this topic MENINGOCOCCAL VACCINES (B) Aged Out N o longer eligible based on patient's age to complete this topic Medical Devices Not on file Insurance [facility] Kuldat PPO [facility] Prole[employer]ityPORT PPO [employer]IA [employer] Profile Inc[employer] PPO [facility] [place] [place] [address] A[employer]LIA Health[employer] Profile [employer] PPO [employer] PASSPORT PPO [employer]PG[employer]) PASSPORT PPO [employer] PASSPORT PPO [employer] (PG[employer]) PASSPORT PPO [facility] PASSPORT PPO Care Teams Commercial Front Load Driver Relationship Specialty Start Date End Date Unknown, Unknown, PCP - General 10/22/17 Additional Source Comments The information contained in this document represents components of the legal health record. It is not the complete legal health record.[facility]
--- OUTSIDE RECORDS SUMMARY | 2025-09-30 12:18 | XMS_ITS | Patient Health Record ---
Author Organization [facility] Address [address] [place] [address] Care Team Providers Care Health Promoter Name Role Phone Ismael Pate M.D. Primary Care Provider Naheed mayatreyZeke Arias Unavailable [phone] Allergies Allergen (clinical drug ingredient) Drug/Non Drug [...] Once a day A ctive Vitamin D2 19360 1 tablet Orally Once a day Active [...] Status Risk Notes Problem Iron deficiency anemia (33511461) Iron deficiency anemia, unspecified iron deficiency anemia type (D50.9) Active confirmed Plan Of Treatment Pending Test Test Name Order Date IRON + IBC (FE) 11/30/2016 FERRITIN 11/30/2016 CBC w DIFF 11/30/2016 CELIAC PANEL #10 11/30/2016 Insurance Providers Payer Name Payer Address Payer Phone Subscriber Number Group Number Insured Name Patient Relationship to Insured Coverage Start Date Coverage End Date [facility] [address] [place] [address] [phone] [id number] PATRICIA WATKINS Self - patient is the insured Medical (General) History Medical History History ICD Code IDDM Mild kidney insufficiency--Dr. Menendez Denies [place],CVA,Lung disease Depression/Anxiety Hyperlipidemia Lactose-intolerance Surgical History Surgery Date(Month/Year) Eyes- tighten muscle on lazy eye left 2 013
--- OUTSIDE RECORDS SUMMARY | 2025-09-30 12:18 | XMS_ITS | Clinical Summary ---
Author Organization [facility] Address [address] [place] [address] Care Team Providers Care Building Performance Specialist Name Role Phone Unavailable Primary Care Provider Unavailabl e Encounters Date Type Department Care Team Description 07/22/2025 Documentation [facility] [address] [place] [address] Daniel Kirk MD from Last 3 Months Social History Tobacco [...] age to complete this topic Insurance [employer] [place] [facility]
--- OUTSIDE RECORDS SUMMARY | 2025-09-30 12:18 | XMS_ITS | Encounter Summary ---
Author Organization [facility] Address [address] [facility] [address] [place] [address] Phone Care Team Providers Care Manager Payer Name Role Phone Tono Broderick LOTTIE Primary Care Provider [phone] Encounter Details Date Type Department Care Team (Late st Contact Info) Description 09/20/2022 Telephone [facility] [address] [place] [address] [place] [address] Terence Menendez MD [address] [facility] [address] [place] [address] Social History Tobacco Use Types [...] his kidneys. Please advise Thank you CB# [phone] documented in this encounter Plan of Treatment Upcoming Encounters Date Type Department Care Team (Late st Contact Info) Description 10/02/2025 11:00 AM EST Office [facility] [address] [address] Terence Menendez MD [address] [address] documented as of this encounter Visit Diagnoses Not on filedocumented in this encounter Care Teams Manager Payer Relationship Specialty Start Date End Date Broderick Power NP [facility] [place] [address] PCP - General Nurse Practitioner 08/23/23 documented as of this encounter
== END 2025-09-30 10:26 | disposition home or self-care (01) ==
LOC: HO.HMGAL 10:22
PROVIDERS: PCP Nurse Practitioner Family; Visit Provider Registered Nurse Emergency
DX: J30.89 Other allergic rhinitis (principal)
CPT/HCPCS: 95117; 95165

== ENCOUNTER → 2025-10-11 20:30 | Outpatient (BNV) | payer BC, SELFPAY | PROVIDERS: PCP Nurse Practitioner Family; Visit Provider Psychiatry & Neurology Neurology | DX: G47.33 Obstructive sleep apnea (adult) (pediatric) (principal) | CPT/HCPCS: 95810 ==

== ENCOUNTER → 2025-10-11 20:30 | Outpatient (REF) | payer BC, SELFPAY ==
--- OUTSIDE RECORDS SUMMARY | 2025-10-12 07:25 | XMS_ITS | Clinical Summary ---
Author Organization [facility] Address [address] [place] [phone] Phone Care Team Providers Care Brain Surgeon Name Role Phone Broderick Power NP Primary Care Provider [phone] Allergies No known active allergies Medications levothyroxine [...] Encounters Date Type Department Care Team Description 10/01/2025 Orders Only [facility] [address] [phone] Rhiannon Castellanos Stage 3b chronic kidney disease (HCC) (Primary Dx); Renal osteodystrophy; Renal disorder due to type 2 diabetes mellitus <Unspecified DM Medication; Diabetic nephropathy> (HCC) from Last 3 Months Family [...] Care Team (Late st Contact Info) Description 10/23/2025 9:30 AM EST Office Visit [facility] [address] [address] Terence Menendez MD [address] [facility] [address] [place] [address] Health Maintenance Due Date Last Done [...] A1C 9.5(A) 4.0 - 6.0 03/11/2025 us [facility] Provider LAB BLOOD ORDERABLES Indira l Result from Last 3 Months or Most Recently Relevant to Health Maintenance Insurance [facility] Care Teams Brain Surgeon Relationship Specialty Start Date End Date Broderick Power NP [address] [facility] [place] [address] PCP - General Nurse Practitioner 08/23/23
--- OUTSIDE RECORDS SUMMARY | 2025-10-12 07:25 | XMS_ITS | Encounter Summary ---
Author Organization [facility] Address [address] [facility] [address] [place] [address] Phone Care Team Providers Care Court Collections Officer Name Role Phone Tono Broderick LOTTIE Primary Care Provider [phone] Encounter Details Date Type Department Care Team (Late st Contact Info) Description 09/20/2022 Telephone [facility] [address] [place] [place] [address] Terence Menendez MD [address] [facility] [address] [place] [address] Social History Tobacco Use Types [...] his kidneys. Please advise Thank you CB# [phone] documented in this encounter Plan of Treatment Upcoming Encounters Date Type Department Care Team (Late st Contact Info) Description 10/23/2025 9:30 AM EST Office Visit [facility] [address] [address] Terence Menendez MD [address] [address] documented as of this encounter Visit Diagnoses Not on filedocumented in this encounter Care Teams Court Collections Officer Relationship Specialty Start Date End Date Broderick Power NP [facility] [place] [address] PCP - General Nurse Practitioner 08/23/23 documented as of this encounter
--- OUTSIDE RECORDS SUMMARY | 2025-10-12 07:25 | XMS_ITS | Clinical Summary ---
Author Organization [facility] Address [address] [facility] [address] [place] [address] Phone Care Team Providers Care Manager Of Pharmacy Name Role Phone Unknown, Unknown Primary Care [...] topic Medical Devices Not on file Insurance [employer] PPO [employer] PPO [employer] PASSPORT PPO [employer] PASSPORT PPO [employer] PASSPORT PPO [facility] [employer] PASSPORT PPO [facility] [employer] PASSPORT PPO [employer] PASSPORT PPO [facility] PASSPORT PPO Care Teams Manager Of Pharmacy Relationship Specialty Start Date End Date Unknown, Unknown, PCP - General 10/22/17 Additional Source Comments The information contained in this document represents components of the legal health record. It is not the complete legal health record.[facility]
--- OUTSIDE RECORDS SUMMARY | 2025-10-12 07:25 | XMS_ITS | Patient Health Record ---
Author Organization [facility] Address [address] [place] [address] Care Team Providers Care Wet Room Supervisor Name Role Phone Ismael Pate M.D. Primary Care Provider Naheed mayatreyZeke Arias Unavailable [phone] Allergies Allergen (clinical drug ingredient) Drug/Non Drug Allergy documented on EMR Reaction Allergy Type Onset Date Status grass trees dust radha es (uncoded) Unknown Allergy Active Reason For Referral No Information Medications Medication SIG (Take, Route, Frequency, Duration) Notes Start Date End Date Status Pravastatin Sodium 20 MG Tablet 1 tablet Orally Once a day A ctive metFORMIN HCl ER 500 MG Tablet Extended Release 24 Hour 1 tablet with evening meal Orally Once a day Active Citalopram Hydrobromide 20 MG Tablet 1 tablet Orally Once a day A ctive Vitamin D2 41396 Tablet 1 tablet Orally Once a day Active buPROPion HCl 75 MG Tablet 1 tablets Ora lly Twice a day Active Ferrous Sulfate 325 (65 Fe) MG Tablet 1 tablet Orally QOD Active Lantus 100 UNIT/ML Solution Subcutaneous Active Vitamin B12 1000 MCG Tablet Extended Release 1 tablet Orally Once a day Active Social History Social History Additional Details Category Social Info Options Details Miscellaneous: Marital status: Single 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 [address] [place] [address] [id number] PATRICIA WATKINS Self - patient is the insured Medical (General) History Medical History History ICD Code IDDM Mild kidney insufficiency--Dr. Menendez Denies [place],CVA,Lung disease Depression/Anxiety Hyperlipidemia Lactose-intolerance Surgical History Surgery Date(Month/Year) Eyes- tighten muscle on lazy eye left 2 013
== END ==
LOC: HO.SL 20:30
PROVIDERS: PCP Nurse Practitioner Family; Visit Provider Physician Assistant Medical
DX: G47.33 Obstructive sleep apnea (adult) (pediatric) (principal); Z99.89 Dependence on other enabling machines and devices
CPT/HCPCS: 95810

== ENCOUNTER 2025-10-21 10:57 | Outpatient (REF) | payer BC, SELFPAY ==
[2025-10-21 11:21] LABS: MANUAL DIFF FLAG NO
[2025-10-21 11:59] LABS: Hematocrit 47.2 % (42.0-52.0); Hemoglobin 15.4 g/dl (14.0-18.0); Imm Gran Abs Auto 0.04 X10*3/uL (0.00-0.03); Imm Gran Pct Auto 0.8 % (0.0-0.4); Lymphocytes Absolute Auto 1.4 X10*3/uL (1.2-4.9); Mean Corpuscular HGB Conc 32.6 g/dl (31.0-36.0); Mean Corpuscular Hemoglobin 29.5 pg (27.0-33.0); Mean Corpuscular Volume 90.4 fL (80.0-98.0); NRBC Abs Auto 0.000 X10*3/uL (0.0-0.012); NRBC Pct Auto 0.0 /100WBC (0.0-0.2); Platelet Count 204 X10*3/uL (160-400); Red Blood Count 5.22 X10*6/uL (4.60-5.80); White Blood Count 5.3 X10*3/uL (4.8-10.8)
[2025-10-21 12:00] LABS: Appearance Urine Clear; Glucose Urine UA >=1000 mg/dL (Negative); PH 5.5 (5.0-9.0); Specific Gravity - Urine 1.020 (1.005-1.025); UMIC TRIGGER UA YES
[2025-10-21 12:21] LABS: Parathyroid Hormone Intact 394.5 pg/mL (8.7-77.1)
[2025-10-21 12:22] LABS: Albumin Level 4.4 g/dL (3.5-5.0); Anion Gap 12 (12-20); Blood Urea Nitrogen 24 mg/dL (9-16); Calcium 9.3 mg/dL (8.4-10.2); Carbon Dioxide 27 mmol/L (22-29); Chloride 107 mmol/L (96-108); Magnesium 2.1 mg/dL (1.6-2.6); Potassium 4.1 mmol/L (3.3-5.1); Sodium 142 mmol/L (135-145)
--- OUTSIDE RECORDS SUMMARY | 2025-10-21 12:52 | XMS_ITS | Patient Health Record ---
Author Organization [facility] Address [address] [place] [address] Care Team Providers Care Creping Machine Operator Name Role Phone Ismael Pate M.D. 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: Nonsmoker; no sig alcohol Problems Problem Type SNOMED Code ICD Code Onset Dates Problem Status W/U Status Risk Notes Problem Iron deficiency anemia (68151904) Iron deficiency anemia, unspecified iron deficiency anemia type (D50.9) Active confirmed Plan Of Treatment Pending Test Test Name Order Date IRON + IBC (FE) 11/30/2016 FERRITIN 11/30/2016 CBC w DIFF 11/30/2016 CELIAC PANEL #10 11/30/2016 Insurance Providers Payer Name Payer Address Payer Phone Subscriber Number Group Number Insured Name Patient Relationship to Insured Coverage Start Date Coverage End Date [facility] [address] [place] [address] [phone] [id number] PATRICIA WATKINS Self - patient is the insured Medical (General) History Medical History History ICD Code IDDM Mild kidney insufficiency--Dr. Menendez Denies [place],CVA,Lung disease Depression/Anxiety Hyperlipidemia Lactose-intolerance Surgical History Surgery Date(Month/Year) Eyes- tighten muscle on lazy eye left 2 013
--- OUTSIDE RECORDS SUMMARY | 2025-10-21 12:52 | XMS_ITS | Clinical Summary ---
Author Organization [facility] Address [address] [place] [id number] Phone Care Team Providers Care Gaming Table Operator Name Role Phone Unknown, Unknown Primary [...] topic Medical Devices Not on file Insurance [employer] P[employer] [facility] [employer] PPO [facility] [employer]SP[employer] PPO [employer] PPO [facility] PAS[employer] PPO Care Teams Gaming Table Operator Relationship Specialty Start Date End Date Unknown, Unknown, PCP - General 10/22/17 Additional Source Comments The information contained in this document represents components of the legal health record. It is not the complete legal health record.[facility]
--- OUTSIDE RECORDS SUMMARY | 2025-10-21 12:52 | XMS_ITS | Clinical Summary ---
Author Organization [facility] Address [address] [place] [address] Care Team Providers Care Customs Manager Name Role Phone Unavailable Primary Care Provider Unavailabl e Encounters Date Type Department Care Team Description 07/22/2025 Documentation [facility] [address] [place] [address] Daniel Kirk MD from Last [...] age to complete this topic Insurance [place] [facility]
[2025-10-21 13:14] LABS: Microalbum/Creatinine Ratio Ur 74.7 ug/mg cr (<30); Protein/Creatinine Ratio, Ur 0.25 (<0.2); Total Protein Urine Random 19 mg/dL (<12)
== END 2025-10-21 10:58 | disposition home or self-care (01) ==
LOC: HO.LAB 10:57
PROVIDERS: PCP Nurse Practitioner Family; Visit Provider Internal Medicine Nephrology
DX: E11.22 Type 2 diabetes mellitus with diabetic chronic kidney disease (principal); N18.32 Chronic kidney disease, stage 3b; E11.21 Type 2 diabetes mellitus with diabetic nephropathy; N25.0 Renal osteodystrophy
CPT/HCPCS: 36415; 80069; 81001; 82043; 82306; 82570; 83735; 83970; 84156; 85025

== ENCOUNTER 2025-10-21 11:02 | Outpatient (AMB) | payer BC, SELFPAY | END 2025-10-21 11:02 | disposition home or self-care (01) | LOC: HO.HMGAL 11:02 | PROVIDERS: PCP Nurse Practitioner Family; Visit Provider Registered Nurse Emergency | DX: J30.89 Other allergic rhinitis (principal) | CPT/HCPCS: 95117; 95165 ==